=== PATIENT | female | born 1950 | race Hispanic/Latino ===

== ENCOUNTER 2017-08-30 19:10 | Inpatient (IN) | payer OTHER ==
[2017-08-30 19:11] VITALS: BMI 34.2
[2017-08-30] MEDS ORDERED: Albuterol-Ipratrop 3 mg / 0.5 (3 ml) UD ONE ×3 (19:17→22:39)
[2017-08-30] MEDS ORDERED: Magnesium Sulfate 1 gm in D5W 2 GM/200 ML BAG IVPB ONE (19:17)
[2017-08-30] MEDS ORDERED: Magnesium Sulfate 1 gm in D5W 1 GM/100 ML BAG IVPB ONE ×2 (19:27→20:00)
[2017-08-30 19:45] LABS: BASO % 0.4 % (0.0-2.0); EOS # 0.2 K/uL (0.0-0.7); EOS % 1.8 % (0.0-4.0); HEMATOCRIT 30.1 % (34.0-47.0); LYMPH # 1.9 K/uL (1.0-4.3); LYMPH % 17.2 % (20.0-40.0); MEAN CELL VOLUME 62.5 fL (81.0-99.0); MEAN CORPUSCULAR HGB CONC 30.5 g/dL (33.0-37.0); MEAN PLATELET VOLUME 10.8 fL (7.2-11.7); MONO # 0.9 K/uL (0.0-0.8); MONO % 8.1 % (0.0-10.0); RED CELL DISTRIBUTION WIDTH 16.8 % (11.5-14.5); WHITE BLOOD COUNT 11.3 K/uL (4.8-10.8)
[2017-08-30 19:56] LABS: ALKALINE PHOSPHATASE 56 U/L (38-126); ALT/SGPT 18 U/L (9-52); AST/SGOT 13 U/L (14-36); BILIRUBIN,TOTAL 0.3 mg/dL (0.2-1.3); BLOOD UREA NITROGEN 30 mg/dL (7-17); CALCIUM 8.5 mg/dl (8.6-10.4); CARBON DIOXIDE 31 mmol/L (22-30); CHLORIDE 92 mmol/L (98-107); GFR AFRICAN-AMERICAN 60; GLUCOSE,RANDOM 144 mg/dL (65-105); POTASSIUM 4.3 mmol/L (3.6-5.2); SODIUM 131 mmol/L (132-148); TOTAL PROTEIN 5.9 g/dL (6.3-8.3)
[2017-08-30 20:23] LABS: ALB/GLOB RATIO 1.8 (1.0-2.1)
[2017-08-30] MEDS: Albuterol-Ipratrop 3 mg / 0.5 (3 ml) UD IH SCH (21:08)
[2017-08-30 21:28] LABS: ABG ALLEN TEST POS; ARTERIAL BLOOD HGB O2 SAT 96.3 % (95.0-98.0); CARBOXYHEMOGLOBIN 1.5 % (0.5-1.5); DRAW SITE RR; HHB 0.6 % (0.0-5.0); METHEMOGLOBIN 1.6 % (0.0-3.0)
[2017-08-30] MEDS ORDERED: Sodium Chloride 0.9% 500 ML IV ONE (22:20)
--- NOTE | 2017-08-30 22:25 | C.PDOC ---
Time Seen by Provider: 08/30/17 19:24 Chief Complaint (Nursing): Respiratory Distress History Per: Patient, EMS, Family Onset/Duration Of Symptoms: Days Current Symptoms Are (Timing): Worse Current Respiratory Medications: See Home Med List Severity: Severe Reports Recently: Treated By A Physician Additional History Per: Prior Records Past Medical History Reviewed: Historical Data, Nursing Documentation, Vital Signs Vital Signs: Last Vital Signs Temp Pulse 104 H 08/30/17 19:18 Resp 24 08/30/17 19:56 BP 150/94 H 08/30/17 19:18 Pulse Ox 100 08/30/17 19:56 - Medical History PMH: Anxiety, COPD, HTN Family History: States: Unknown Family Hx - Social History Hx Tobacco Use: No Hx Alcohol Use: No Hx Substance Use: No - Immunization History Hx Tetanus Toxoid Vaccination: Yes Hx Influenza Vaccination: Yes Hx Pneumococcal Vaccination: Yes Review Of Systems Except As Marked, All Systems Reviewed And Found Negative. Constitutional: Negative for: Fever Cardiovascular: Negative for: Chest Pain Respiratory: Positive for: Shortness of Breath. Negative for: Hemoptysis Gastrointestinal: Negative for: Vomiting, Abdominal Pain Musculoskeletal: Negative for: Neck Pain Skin: Negative for: Rash Neurological: Negative for: Weakness, Numbness Physical Exam - Physical Exam Appears: In Acute Distress Skin: Normal Color, Warm, Dry Head: Atraumatic, Normacephalic Eye(s): bilateral: PERRL, EOMI Neck: Normal ROM, Supple Cardiovascular: Rhythm Regular Respiratory: Decreased Breath Sounds, Accessory Muscle Use Gastrointestinal/Abdominal: Soft, No Tenderness Back: No CVA Tenderness Extremity: Normal ROM, No Calf Tenderness Neurological/Psych: Oriented x3, Normal Motor, Normal Sensation ED Course And Treatment - Laboratory Results Result Diagrams: 08/30/17 19:41 08/30/17 19:41 ECG: Interpreted By Me, Viewed By Me ECG Rhythm: Sinus Rhythm, Nonspecific Changes Rate From EC - Radiology CXR: Interpreted by Me, Viewed By Me CXR Interpretation: Yes: No Acute Disease Progress - Interventions Interventions:: Observation, Intravenous fluid, Oxygen - Medications Administered Inhaled nebulized: Anticholinergic, Beta-2 agonist Intravenous: Corticosteroid, Other (Mg) - Data Reviewed Data Reviewed: Lab, Diagnostic imaging, EKG, Old records - Patient Status Patient status: Partially improved - Critical Care Citical Care: Excluding Proc Time Critical Care Time: 45 minutes - Continuity of Care Discussed patient case with:: Patient, Family-HIPPA compliant, ED Nurse, Covering for PMD - Patient Plan Patient Plan: Admission Disposition Discussed With : Josemanuel Spence Comment: He accepted pt on hospitalist service. Doctor Will See Patient In The: Hospital Counseled Patient/Family Regarding: Studies Performed, Diagnosis - Disposition Disposition: HOSPITALIZED Disposition Time: 22:26 Condition: FAIR - Clinical Impression Clinical Impression: Status asthmaticus with COPD (chronic obstructive pulmonary disease)
[2017-08-30] MEDS ORDERED: Albuterol-Ipratrop 3 mg / 0.5 (3 ml) UD IH STA (22:28)
[2017-08-30] MEDS ORDERED: MethylPREDNISolone 40 mg Vial IV SCH (23:45)
--- NOTE | 2017-08-31 00:21 | CP.PCM.HP ---
<Armando Rob - Last Filed: 08/31/17 01:00> History of Present Illness - History of Present Illness History of Present Illness: Medicine H/P CC: SOB HPI: Patient is a 67F with a PMH of COPD on home O2 (2L) who comes to the ED after several months of worsening SOB. See Dr. Metzger as outpatient. She thought her condition would get better on its own so she put of coming to the hospital. She is compliant with her medications. Lives with several pets probably contributing to her presentation. Patient thinks her medications need to be changed. Denies any chest pain, fevers, chills. During thanksgiving went to [facility] and received antibiotics and prednisone that made her feel better for a short while. Called her primary about a month ago and he gave her antibiotics and a Medrol dose pack. Her SOB continued to worsen. No other complaints at this time. PMD: Yassine PMH: Anxiety, COPD home O2 2L PSH: Partial hysterectomy FH: unremarkable SH: Former smoker, stopped after she was intubated for ARDS years ago, Denies alcohol use, No drugs Meds: See MAR All: None Present on Admission - Present on Admission Any Indicators Present on Admission: No Review of Systems - Review of Systems Review of Systems: Per HPI Past Patient History - Infectious Disease Hx of Infectious Diseases: None - Past Medical History & Family History Past Medical History?: Yes - Past Social History Smoking Status: Never Smoked - CARDIAC Hx Hypertension: Yes - PULMONARY Hx Chronic Obstructive Pulmonary Disease (COPD): Yes - NEUROLOGICAL Hx Neurological Disorder: No - HEENT Hx HEENT Problems: No - RENAL Hx Chronic Kidney Disease: No - ENDOCRINE/METABOLIC Hx Endocrine Disorders: No - HEMATOLOGICAL/ONCOLOGICAL Hx Blood Disorders: No - INTEGUMENTARY Hx Dermatological Problems: No - MUSCULOSKELETAL/RHEUMATOLOGICAL Hx Musculoskeletal Disorders: No Hx Falls: Yes - GASTROINTESTINAL Hx Gastrointestinal Disorders: No - GENITOURINARY/GYNECOLOGICAL Hx Genitourinary Disorders: No - PSYCHIATRIC Hx Anxiety: Yes Hx Substance Use: No - SURGICAL HISTORY Hx Hysterectomy: Yes Other/Comment: Ovarian tumor nremoval - ANESTHESIA Hx Anesthesia: Yes Hx Anesthesia Reactions: No Hx Malignant Hyperthermia: No Meds Allergies/Adverse Reactions: Allergies Allergy/AdvReac Type Severity Reaction Status Date / Time No Known Allergies Allergy Verified 08/30/17 19:23 Physical Exam - Constitutional Appears: Well, Non-toxic, No Acute Distress - Head Exam Head Exam: ATRAUMATIC, NORMAL INSPECTION, NORMOCEPHALIC - Eye Exam Eye Exam: EOMI Pupil Exam: NORMAL ACCOMODATION - ENT Exam ENT Exam: Mucous Membranes Moist - Respiratory Exam Respiratory Exam: Rhonchi (LLL). absent: Decreased Breath Sounds, Rales, Wheezes, Respiratory Distress, Stridor Additional comments: crackles in RLL - Cardiovascular Exam Cardiovascular Exam: REGULAR RHYTHM Additional comments: distant heart sounds - GI/Abdominal Exam GI & Abdominal Exam: Normal Bowel Sounds, Soft. absent: Distended, Tenderness - Extremities Exam Extremities exam: Negative for: joint swelling, tenderness - Neurological Exam Neurological exam: Alert, Oriented x3 - Psychiatric Exam Psychiatric exam: Normal Affect, Normal Mood - Skin Skin Exam: Dry, Intact, Normal Color, Warm Results - Vital Signs Recent Vital Signs: Last Vital Signs Temp 98.3 F 08/30/17 23:00 Pulse 92 H 08/30/17 23:00 Resp 22 08/30/17 23:00 BP 120/57 L 08/30/17 23:00 Pulse Ox 99 08/30/17 23:00 - Labs Result Diagrams: 08/30/17 19:41 08/30/17 19:41 Labs: Laboratory Results - last 24 hr 08/30/17 08/30/17 08/30/17 19:41 19:41 21:25 WBC 11.3 H RBC 4.82 Hgb 9.2 L Hct 30.1 L MCV 62.5 L MCH 19.0 L MCHC 30.5 L RDW 16.8 H Plt Count 146 MPV 10.8 Neut % (Auto) 72.5 Lymph % (Auto) 17.2 L [place] % (Auto) 8.1 Eos % (Auto) 1.8 Baso % (Auto) 0.4 Neut # 8.2 H Lymph # 1.9 [place] # 0.9 H Eos # 0.2 Baso # 0.0 Differential Comment Puncture Site Rr pCO2 47 H pO2 137 H HCO3 27.4 ABG pH 7.39 ABG Total CO2 29.9 H ABG O2 Saturation 99.4 H ABG Base Excess 3.1 H ABG Hemoglobin 8.7 L ABG Carboxyhemoglobin 1.5 POC ABG HHb (Measured) 0.6 ABG Methemoglobin 1.6 Ralph Test Pos A-a O2 Difference 61.0 Respiratory Index 0.4 Hgb O2 Saturation 96.3 Liter Flow 4.0 FiO2 36.0 Sodium 131 L Potassium 4.3 Chloride 92 L Carbon Dioxide 31 H Anion Gap 12 BUN 30 H Creatinine 1.1 Est GFR ( Amer) 60 Est GFR (Non-Af Amer) 49 Random Glucose 144 H Calcium 8.5 L Total Bilirubin 0.3 AST 13 L ALT 18 Alkaline Phosphatase 56 Troponin I < 0.0120 NT-Pro-B Natriuret Pep 126 Total Protein 5.9 L Albumin 3.8 Globulin 2.1 L Albumin/Globulin Ratio 1.8 Assessment & Plan (1) COPD exacerbation Assessment and Plan: Pulm ([place]) 2L O2 NC BiPAP tonight Meds: * Ventolin Q6 PRN * Duonebs Q6 * Advair 250/50 Q12 * Solumedrol 40 IV Q12 Status: Acute Priority: High (2) Anxiety Assessment and Plan: xanax 0.5 once Status: Acute Priority: High <Josemanuel Spence - Last Filed: 08/31/17 06:30> Results - Vital Signs Recent Vital Signs: Last Vital Signs Temp 97.4 F L 08/31/17 00:08 Pulse 89 08/31/17 01:33 Resp 20 08/31/17 00:08 BP 131/75 08/31/17 00:08 Pulse Ox 99 08/31/17 02:26 - Labs Result Diagrams: 08/30/17 19:41 08/30/17 19:41 Labs: Laboratory Results - last 24 hr 08/30/17 08/30/17 08/30/17 19:41 19:41 21:25 WBC 11.3 H RBC 4.82 Hgb 9.2 L Hct 30.1 L MCV 62.5 L MCH 19.0 L MCHC 30.5 L RDW 16.8 H Plt Count 146 MPV 10.8 Neut % (Auto) 72.5 Lymph % (Auto) 17.2 L [place] % (Auto) 8.1 Eos % (Auto) 1.8 Baso % (Auto) 0.4 Neut # 8.2 H Lymph # 1.9 [place] # 0.9 H Eos # 0.2 Baso # 0.0 Differential Comment Puncture Site Rr pCO2 47 H pO2 137 H HCO3 27.4 ABG pH 7.39 ABG Total CO2 29.9 H ABG O2 Saturation 99.4 H ABG Base Excess 3.1 H ABG Hemoglobin 8.7 L ABG Carboxyhemoglobin 1.5 POC ABG HHb (Measured) 0.6 ABG Methemoglobin 1.6 Ralph Test Pos A-a O2 Difference 61.0 Respiratory Index 0.4 Hgb O2 Saturation 96.3 Liter Flow 4.0 FiO2 36.0 Sodium 131 L Potassium 4.3 Chloride 92 L Carbon Dioxide 31 H Anion Gap 12 BUN 30 H Creatinine 1.1 Est GFR ( Amer) 60 Est GFR (Non-Af Amer) 49 Random Glucose 144 H Calcium 8.5 L Total Bilirubin 0.3 AST 13 L ALT 18 Alkaline Phosphatase 56 Troponin I < 0.0120 NT-Pro-B Natriuret Pep 126 Total Protein 5.9 L Albumin 3.8 Globulin 2.1 L Albumin/Globulin Ratio 1.8 Assessment & Plan - Date & Time Date: 08/31/17 (I have seen and examined the patient. I agree with the findings and plan of care as documented by Dr. Rob. Patient with COPD exacerbation. Give nebs, ventolin, solumedrol, and start advair. BIPAP tonight. Continue home meds for history of anxiety. Monitor for acute changes.) Time: 06:29 Attending/Attestation - Attestation I have personally seen and examined this patient.: Yes I have fully participated in the care of the patient.: Yes I have reviewed all pertinent clinical information: Yes
[2017-08-31] MEDS: Sodium Chloride 0.9% 1,000 ML IV SCH ×3 (01:15→21:47)
[2017-08-31] MEDS: Albuterol HFA 90 mcg/actuation (8 g) INH PRN ×2 (01:26→11:41)
[2017-08-31] MEDS: Albuterol-Ipratrop 3 mg / 0.5 (3 ml) UD INH SCH ×4 (01:50→19:15)
[2017-08-31] MEDS: MethylPREDNISolone 40 mg Vial IV SCH ×3 (08:27→17:29)
[2017-08-31] MEDS: Fluticasone-Salmeterol 250-50mcg Diskus INH SCH ×2 (08:33→19:14)
[2017-08-31] MEDS: Enoxaparin 40 mg Syringe SC SCH (09:41)
--- NOTE | 2017-08-31 10:50 | RAD ---
HISTORY: SOB COMPARISON: Chest x-ray performed 12/17/13 TECHNIQUE: Chest, one view. FINDINGS: Examination limited by habitus. LUNGS: Right greater than left lower lobe patchy opacities worrisome for pneumonia. Please note that chest x-ray has limited sensitivity for the detection of pulmonary masses. PLEURA: No significant pleural effusion identified. No definite pneumothorax . CARDIOVASCULAR: Ectatic aorta. Borderline cardiomegaly. OSSEOUS STRUCTURES: Degenerative changes. VISUALIZED UPPER ABDOMEN: Unremarkable. OTHER FINDINGS: None. IMPRESSION: Right greater than left lower lobe patchy opacities worrisome for pneumonia. Borderline cardiomegaly. Ectatic aorta. Study marked for PA review.
[2017-08-31] MEDS ORDERED: MethylPREDNISolone 40 mg Vial IV SCH (11:00)
[2017-08-31] MEDS: hydroCHLOROthiazide-Triamterene 25 mg-37.5 mg Cap UD PO SCH (11:37)
[2017-08-31 13:16] LABS: LEGIONELLA AG URINE NEGATIVE (NEGATIVE)
[2017-08-31 13:31] LABS: H INFLUENZAE B NEGATIVE (NEGATIVE); N MENINGITIS ACY/W135 NEGATIVE (NEGATIVE); N MENINGITIS B/ECOLI K1 NEGATIVE (NEGATIVE)
--- NOTE | 2017-08-31 13:43 | CP.PCM.PN ---
<Elsa Messina - Last Filed: 08/31/17 15:31> Subjective - Date & Time of Evaluation Date of Evaluation: 08/31/17 Time of Evaluation: 07:50 - Subjective Subjective: Medicine Progress Note: Hospitalist Service Patient seen and examined at bedside. Patient was on bipap overnight. States that she is still short of breath. Able to talk in complete sentences. Patient also states that she is anxious about getting up to use the commode because of her breathing. Reports that breathing has been progressively getting worse over the past few months to the point now where she cant move around at home without feeling short of breath. She uses home O2, proair, nebulizer, spiriva and flovent at home. Currently denies fevers, chills, headaches, dizziness, cp, palpitations, abdominal pain, urinary symptoms, changes in bowel habits. Objective - Vital Signs/Intake and Output Vital Signs (last 24 hours): Temp Pulse Resp BP Pulse Ox 98.5 F 76 20 118/80 96 08/31/17 08:13 08/31/17 08:13 08/31/17 08:13 08/31/17 08:13 08/31/17 08:13 Intake and Output: 08/31/17 08/31/17 06:59 18:59 Intake Total 750 Balance 750 - Medications Medications: Current Medications Albuterol (Ventolin Hfa 90 Mcg/Actuation (8 G)) 1 puff INH RQ6 PRN PRN Reason: Shortness of Breath Last Admin: 08/31/17 11:41 Dose: 1 puff Albuterol/Ipratropium (Duoneb 3 Mg/0.5 Mg (3 Ml) Ud) 3 ml INH RQ6 KASHMIR Last Admin: 08/31/17 13:34 Dose: 3 ml Enoxaparin Sodium (Lovenox) 40 mg SC DAILY [facility] Last Admin: 08/31/17 09:41 Dose: Not Given Sodium Chloride (Sodium Chloride 0.9%) 1,000 mls @ 80 mls/hr IV .[id number] [facility] Last Admin: 08/31/17 01:15 Dose: 80 mls/hr Azithromycin 500 mg/ Dextrose 250 mls @ 166.667 mls/hr IVPB Q24H KASHMIR Last Admin: 08/31/17 12:30 Dose: 166.667 mls/hr Ceftriaxone Sodium 1 gm/ (Sodium Chloride) 100 mls @ 200 mls/hr IVPB Q12H KASHMIR Methylprednisolone (Solu-Medrol) 40 mg IV Q8H KASHMIR Fluticasone/Salmeterol (Advair Diskus 250/50) 1 puff INH RQ12 [facility] Last Admin: 08/31/17 08:33 Dose: Not Given Triamterene/HCTZ (Dyazide 25 Mg-37.5 Mg) 1 cap PO DAILY [facility] Last Admin: 08/31/17 11:37 Dose: 1 cap - Labs Labs: 08/30/17 19:41 08/30/17 19:41 - Constitutional Appears: Non-toxic, No Acute Distress, Older Than Stated Age - Head Exam Head Exam: ATRAUMATIC, NORMAL INSPECTION - Eye Exam Eye Exam: EOMI, Normal appearance Pupil Exam: NORMAL ACCOMODATION - ENT Exam ENT Exam: Mucous Membranes Moist - Neck Exam Neck Exam: Full ROM - Respiratory Exam Respiratory Exam: Decreased Breath Sounds, Rhonchi (Lower lung gonsalez bilaterally). absent: Accessory Muscle Use, Chest Wall Tenderness, Rales, Stridor - Cardiovascular Exam Cardiovascular Exam: REGULAR RHYTHM, +S1, +S2. absent: Murmur - GI/Abdominal Exam GI & Abdominal Exam: Soft, Normal Bowel Sounds. absent: Guarding, Rigid, Tenderness - Extremities Exam Extremities Exam: Normal Capillary Refill. absent: Calf Tenderness, Joint Swelling Additional comments: +1 edema bilaterally - Neurological Exam Neurological Exam: Alert, Awake, CN II-XII Intact, Oriented x3 - Psychiatric Exam Psychiatric exam: Normal Affect, Normal Mood - Skin Skin Exam: Dry, Normal Color, Warm Assessment and Plan - Assessment and Plan (Free Text) Assessment: 1. Acute on Chronic COPD Exacerbation * Patient reports still short of breath * Will upgrade patient to telemetry for closer monitoring * ABG from admission reviewed * Duonebs 3ml INH Q6H KASHMIR * Albuterol prn * Advair 250/50 Q12H * Solumedrol 40mg Q8H IVP * Echo ordered to assess heart function * Supplemental O2 as needed * Bipap QHS * F/U D Dimer * Pulmonary on consult, Dr Delgadillo, help appreciated * Physical Therapy, Occupational Therapy ordered 2. Community Acquired Pneumonia * WBC 11.3 on admission, CRP > 15 * CXR: Right greater than left lower lobe patchy opacities worrisome for pneumonia, borderline cardiomegaly, ectatic aorta * Antibiotics: Azithromycin (08/31/17) and Rocephin (08/31/17) * F/U mycoplasma, Urine legionella ag, urine strep ag * F/U blood cx, urine cx, sputum cx, procalcitonin 3. History of Hypertension * Will continue Triamterene/HCTZ 25/37.5mg daily * Continue to monitor 4. Anemia * Hgb 9.2 on admission * Baseline Hgb not known * F/U anemia workup * F/U stool occult blood * Continue to monitor 5. History of Anxiety * Patient on Xanax 0.5mg at home * Will continue to monitor GI/DVT ppx * Protonix 40mg PO daily * Lovenox 40mg SC <Ginny Esposito V - Last Filed: 09/01/17 00:53> Objective - Vital Signs/Intake and Output Vital Signs (last 24 hours): Temp Pulse Resp BP Pulse Ox 98 F 99 H 20 130/79 100 08/31/17 20:16 08/31/17 20:16 08/31/17 20:16 08/31/17 20:16 08/31/17 20:16 Intake and Output: 08/31/17 09/01/17 18:59 06:59 Intake Total 1810 Output Total 2 Balance 1808 - Medications Medications: Current Medications Albuterol (Ventolin Hfa 90 Mcg/Actuation (8 G)) 1 puff INH RQ6 PRN PRN Reason: Shortness of Breath Last Admin: 08/31/17 11:41 Dose: 1 puff Albuterol/Ipratropium (Duoneb 3 Mg/0.5 Mg (3 Ml) Ud) 3 ml INH RQ6 KASHMIR Last Admin: 08/31/17 19:15 Dose: 3 ml Alprazolam (Xanax) 0.5 mg PO HS PRN PRN Reason: Anxiety Last Admin: 08/31/17 23:08 Dose: 0.5 mg Enoxaparin Sodium (Lovenox) 40 mg SC DAILY [facility] Last Admin: 08/31/17 09:41 Dose: Not Given Sodium Chloride (Sodium Chloride 0.9%) 1,000 mls @ 80 mls/hr IV .[id number] [facility] Last Admin: 08/31/17 21:47 Dose: 80 mls/hr Azithromycin 500 mg/ Dextrose 250 mls @ 166.667 mls/hr IVPB Q24H [facility] Last Admin: 08/31/17 12:30 Dose: 166.667 mls/hr Ceftriaxone Sodium 1 gm/ (Sodium Chloride) 100 mls @ 200 mls/hr IVPB Q12H [facility] Last Admin: 08/31/17 17:30 Dose: 200 mls/hr Methylprednisolone (Solu-Medrol) 40 mg IV Q8H [facility] Last Admin: 08/31/17 17:29 Dose: 40 mg Pantoprazole Sodium (Protonix Ec Tab) 40 mg PO DAILY [facility] Fluticasone/Salmeterol (Advair Diskus 250/50) 1 puff INH RQ12 [facility] Last Admin: 08/31/17 19:14 Dose: Not Given Triamterene/HCTZ (Dyazide 25 Mg-37.5 Mg) 1 cap PO DAILY [facility] Last Admin: 08/31/17 11:37 Dose: 1 cap - Labs Labs: 08/31/17 17:26 08/31/17 17:26 Attending/Attestation - Attestation I have personally seen and examined this patient.: Yes I have fully participated in the care of the patient.: Yes I have reviewed all pertinent clinical information, including history, physical exam and plan: Yes Notes (Text): This is late computer entry for 08/31/17. Patient seen, examined, and case discussed with day-time resident. Patient seen on 3rd floor this morning at 10:45AM with pulmonary consult at bedside. Patient with severe COPD, requiring home oxygen 2 Liters, Duoneb nebulizer, Sprivia. Patient reports difficulty with Advair HFA and Albuterol HFA, reports having difficult time getting adequate breathe. Patient reports she feels anxious, given dose of Xanax and discussed with her nurse. Patient transferred to telemetry for further monitoring in light of COPD exacerbation. Will c/w Solumedrol 40mg IV Q8H, start Advair 250/50 1 puff q12H, and if patient does not tolerate Advair, will consider starting pulmicort nebules per pulm recommendation. Patient completed echocardiogram this morning Antibiotics switched to cover for community acquired pneumonia given infiltrates on chest xray. Blood work ordered for today. Patient has bandemia. procalcitonin is low. Blood cultures were collected prior on admission and today. Will monitor. Assessment/Plan 1. Acute on Chronic COPD Exacerbation * Patient reports still short of breath * Will upgrade patient to telemetry for closer monitoring * ABG from admission reviewed-->CO2 retention * Duonebs 3ml INH Q6H KASHMIR * Albuterol prn * Advair 250/50 1 puff inhaled Q12H * Solumedrol 40mg IVP Q8H * Echo ordered to assess heart function * Supplemental O2 as needed * Bipap QHS * D Dimer: negative * Pulmonary on consult, Dr Delgadillo, help appreciated * Physical Therapy, Occupational Therapy ordered 2. Community Acquired Pneumonia * WBC 11.3 on admission, CRP > 15 * CXR: Right greater than left lower lobe patchy opacities worrisome for pneumonia, borderline cardiomegaly, ectatic aorta * Antibiotics: Azithromycin (08/31/17) and Rocephin (08/31/17) * F/U mycoplasma, Urine legionella ag, urine strep ag * F/U blood cx, urine cx, sputum cx, procalcitonin 3. History of Hypertension * Will continue Triamterene/HCTZ 25/37.5mg daily * Continue to monitor 4. Anemia * Hgb 9.2 on admission * Baseline Hgb not known * F/U anemia workup * F/U stool occult blood * Continue to monitor 5. History of Anxiety * Patient on Xanax 0.5mg QHS PRN at home * Will continue to monitor 6. GI/DVT ppx * Protonix 40mg PO daily * Lovenox 40mg SC HS * Physical therapy eval * Occupational therapy eval
[2017-08-31 13:44] LABS: PROCALCITONIN SERUM < 0.05 NG/ML (0.19-0.49)
[2017-08-31 17:37] LABS: HEMATOCRIT 27.9 % (34.0-47.0); LYMPH # 0.6 K/uL (1.0-4.3); LYMPH % 3.8 % (20.0-40.0); MEAN CELL VOLUME 62.3 fL (81.0-99.0); MEAN CORPUSCULAR HEMOGLOBIN 19.4 pg (27.0-31.0); MEAN CORPUSCULAR HGB CONC 31.2 g/dL (33.0-37.0); MEAN PLATELET VOLUME 11.1 fL (7.2-11.7); MONO # 0.6 K/uL (0.0-0.8); MONO % 3.8 % (0.0-10.0); PLATELET COUNT 145 K/uL (130-400); RED CELL DISTRIBUTION WIDTH 16.3 % (11.5-14.5)
[2017-08-31 17:47] LABS: IRON 67 ug/dL (37-170)
[2017-08-31 18:02] LABS: ALB/GLOB RATIO 1.8 (1.0-2.1); BILIRUBIN,TOTAL 0.2 mg/dL (0.2-1.3); CALCIUM 8.8 mg/dl (8.6-10.4); MAGNESIUM 1.8 mg/dL (1.6-2.3); PHOSPHOROUS 3.4 mg/dL (2.5-4.5); POTASSIUM 4.7 mmol/L (3.6-5.2); TOTAL PROTEIN 5.8 g/dL (6.3-8.3)
[2017-08-31 19:20] LABS: TOTAL CELLS COUNTED 100
[2017-08-31 19:21] LABS: NEUTROPHIL 81 % (50-75)
[2017-08-31 19:22] LABS: LARGE PLATELETS PRESENT
[2017-08-31 20:26] LABS: FOLATE 11.7 ng/mL
--- NOTE | 2017-08-31 23:16 | CARD ---
APPROVED REPORT EKG Measurement Heart [id number] <Conclusion> Normal sinus rhythm Low voltage QRS Cannot rule out Anterior infarct, age undetermined Abnormal ECG
[2017-09-01] MEDS: MethylPREDNISolone 40 mg Vial IV SCH ×3 (01:19→17:41)
[2017-09-01 02:25] LABS: ALB/GLOB RATIO 1.1 (1.0-2.1); BILIRUBIN,TOTAL 0.3 mg/dL (0.2-1.3); CALCIUM 8.7 mg/dl (8.6-10.4); MAGNESIUM 1.9 mg/dL (1.6-2.3); PHOSPHOROUS 3.7 mg/dL (2.5-4.5); POTASSIUM 4.9 mmol/L (3.6-5.2)
[2017-09-01] MEDS: Albuterol-Ipratrop 3 mg / 0.5 (3 ml) UD INH SCH ×4 (02:29→20:09)
[2017-09-01] MEDS: Fluticasone-Salmeterol 250-50mcg Diskus INH SCH (07:20)
--- NOTE | 2017-09-01 07:21 | CON ---
DATE: HISTORY OF PRESENT ILLNESS: Ms. Arteaga is a 67-year-old female, admitted to the hospital with chief complaint of shortness of breath, wheezes, coughing. Patient came to the ER, advised admission. Patient uses Spiriva, DuoNeb, Flovent, Dyazide. PHYSICAL EXAMINATION: GENERAL: The patient is awake, alert, oriented. VITAL SIGNS: Temperature 98, pulse 90. HEENT: Within normal limits. NECK: Supple. CHEST: Symmetrical. Decreased air entry. HEART: Regular. ABDOMEN: Soft. EXTREMITIES: No edema. IMPRESSION AND PLAN: Patient suffers on admission from chronic obstructive pulmonary disease. Rule out pneumonia. The patient to get bedrest, bronchodilators, antibiotics, IV steroid. Add Advair 250/50 twice a day. Rosalind Delgadillo MD
[2017-09-01 07:36] LABS: RBC URINE < 1 /hpf (0-3); URINE BACTERIA OCC (<OCC); URINE BILIRUBIN NEGATIVE (NEGATIVE); URINE BLOOD NEGATIVE (NEGATIVE); URINE COLOR Straw (YELLOW); URINE GLUCOSE (UA) NORMAL (Normal); URINE KETONE NEGATIVE (NEGATIVE); URINE LEUKOCYTE ESTERASE NEG Leu/uL (Negative); URINE PROTEIN NEGATIVE (NEGATIVE); URINE UROBILINOGEN NORMAL mg/dL (0.2-1.0); WBC URINE 1 /hpf (0-5)
--- NOTE | 2017-09-01 07:48 | CP.PCM.PN ---
<Elsa Messina - Last Filed: 09/01/17 17:08> Subjective - Date & Time of Evaluation Date of Evaluation: 09/01/17 Time of Evaluation: 07:45 - Subjective Subjective: Medicine Progress Note: Hospitalist Service Patient seen and examined at bedside. Per nursing no acute events overnight. Patient with bipap mask on currently. States that breathing is a little better today. Able to speak in complete sentences. Per PT documentation, Patient desaturated yesterday to 89% on 3L NC with moderate shortness of breath. Offers no complaints at this time. Denies headaches, dizziness, cp, palpitations, abdominal pain, urinary symptoms, changes in bowel habits. Objective - Vital Signs/Intake and Output Vital Signs (last 24 hours): Temp Pulse Resp BP Pulse Ox 98.1 F 79 20 118/76 96 08/31/17 23:40 08/31/17 23:40 08/31/17 23:40 08/31/17 23:40 08/31/17 23:40 Intake and Output: 09/01/17 09/01/17 06:59 18:59 Intake Total 420 Output Total 2 Balance 418 - Medications Medications: Current Medications Albuterol (Ventolin Hfa 90 Mcg/Actuation (8 G)) 1 puff INH RQ6 PRN PRN Reason: Shortness of Breath Last Admin: 08/31/17 11:41 Dose: 1 puff Albuterol/Ipratropium (Duoneb 3 Mg/0.5 Mg (3 Ml) Ud) 3 ml INH RQ6 [facility] Last Admin: 09/01/17 07:20 Dose: 3 ml Enoxaparin Sodium (Lovenox) 40 mg SC DAILY [facility] Last Admin: 08/31/17 09:41 Dose: Not Given Azithromycin 500 mg/ Dextrose 250 mls @ 166.667 mls/hr IVPB Q24H [facility] Last Admin: 08/31/17 12:30 Dose: 166.667 mls/hr Ceftriaxone Sodium 1 gm/ (Sodium Chloride) 100 mls @ 200 mls/hr IVPB Q12H [facility] Last Admin: 09/01/17 04:00 Dose: 200 mls/hr Methylprednisolone (Solu-Medrol) 40 mg IV Q8H [facility] Last Admin: 09/01/17 01:19 Dose: 40 mg Pantoprazole Sodium (Protonix Ec Tab) 40 mg PO DAILY [facility] Saccharomyces Boulardii (Florastor) 250 mg PO BID [facility] Fluticasone/Salmeterol (Advair Diskus 250/50) 1 puff INH RQ12 [facility] Last Admin: 09/01/17 07:20 Dose: Not Given Triamterene/HCTZ (Dyazide 25 Mg-37.5 Mg) 1 cap PO DAILY [facility] Last Admin: 08/31/17 11:37 Dose: 1 cap - Labs Labs: 08/31/17 17:26 09/01/17 01:32 - Constitutional Appears: Well, No Acute Distress - Head Exam Head Exam: ATRAUMATIC, NORMAL INSPECTION - Eye Exam Eye Exam: EOMI, Normal appearance - ENT Exam ENT Exam: Mucous Membranes Moist - Neck Exam Neck Exam: Full ROM - Respiratory Exam Respiratory Exam: Decreased Breath Sounds, Wheezes, NORMAL BREATHING PATTERN. absent: Accessory Muscle Use - Cardiovascular Exam Cardiovascular Exam: REGULAR RHYTHM, +S1, +S2 - GI/Abdominal Exam GI & Abdominal Exam: Soft, Normal Bowel Sounds. absent: Guarding, Rigid, Tenderness - Extremities Exam Extremities Exam: Pedal Edema (+1 pitting edema). absent: Calf Tenderness - Neurological Exam Neurological Exam: Alert, Awake, Normal Gait, Oriented x3 - Psychiatric Exam Psychiatric exam: Anxious, Normal Affect - Skin Skin Exam: Normal Color, Warm Assessment and Plan - Assessment and Plan (Free Text) Assessment: 1. Acute on Chronic COPD Exacerbation * Patient reports still short of breath but improving * Continue to monitor on telemetry * Continue Duonebs 3ml INH Q6H [facility] * Albuterol prn * Patient unable to use Advair, will add pulmicort 0.5 INH Q12H * Solumedrol 40mg Q8H IVP * Echo completed, f/u official read * Supplemental O2 as needed * Bipap QHS * Pulmonary on consult, Dr Delgadillo, help appreciated * Physical Therapy, Occupational Therapy ordered 2. Community Acquired Pneumonia * WBC 11.3 on admission, CRP > 15 * CXR: Right greater than left lower lobe patchy opacities worrisome for pneumonia, borderline cardiomegaly, ectatic aorta * Antibiotics: Azithromycin (08/31/17) and Rocephin (08/31/17) * Florastor 250mg BID * Bandemia resolved 11 --> 1 * Repeat CXR ordered * Legionella, strep pneumo, mycoplasma negative * F/U blood cx, urine cx, sputum cx, procalcitonin 3. History of Hypertension * Will continue Triamterene/HCTZ 25/37.5mg daily * Continue to monitor 4. Anemia * Hgb 9.2 on admission, today 8.7 * Anemia panel reviewed * Iron 67 * TIBC 298 * % sat 22 * Ferritin 80.2 * Vitamin B12 410 * Folate 11.7 * Stool occult negative, unknown cause of anemia * Heme/Onc consulted, f/u recommendations * Continue to monitor 5. History of Anxiety * Lexapro 20mg daily * On Xanax 0.5mg daily at home * Will continue to monitor GI/DVT ppx * Protonix 40mg PO daily * Lovenox 40mg [facility] <Ginny Esposito V - Last Filed: 09/03/17 18:25> Objective - Vital Signs/Intake and Output Vital Signs (last 24 hours): Temp Pulse Resp BP Pulse Ox 98 F 91 H 20 155/91 H 98 09/02/17 23:45 09/02/17 23:45 09/02/17 23:45 09/02/17 23:45 09/02/17 23:45 Intake and Output: 09/03/17 09/03/17 06:59 18:59 Intake Total 840 Balance 840 - Labs Labs: 09/02/17 07:09 09/02/17 07:09 Attending/Attestation - Attestation I have personally seen and examined this patient.: Yes I have fully participated in the care of the patient.: Yes I have reviewed all pertinent clinical information, including history, physical exam and plan: Yes Notes (Text): This is late computer entry for 09/01/2017. Patient transferred to telemetry yesterday for further monitoring given acute on chronic severe COPD exacerbation. Patient reports shortness of breath but starting to improve. Patient unable to physically take in adequate breath to rule out both Advair and Spiriva to have effectiveness for patient's breathing and lung quality. Per recommendation bipolar will start budesonide Nebules inhaled about twice a day given the patient uses nebulizer and reports more effective breathing. We'll continue IV steroids. Serology for pneumonia and is negative. We'll continue antibiotics to cover for community acquired pneumonia. Patient is anemic and appears chronic unable to get baseline since PMD is away. We'll consult heme for further recommendations. Assessment/Plan 1. Acute on Chronic Severe COPD Exacerbation * Patient reports still short of breath * Will upgrade patient to telemetry for closer monitoring * ABG from admission reviewed-->CO2 retention * Duonebs 3ml INH Q6H [facility] * Albuterol prn * Advair 250/50 1 puff inhaled Q12H * Solumedrol 40mg IVP Q8H * Echo ordered to assess heart function * Supplemental O2 as needed * Bipap QHS * D Dimer: negative * Pulmonary on consult, Dr Delgadillo, help appreciated * Physical Therapy, Occupational Therapy ordered * pending echocardiogram 2. Community Acquired Pneumonia * WBC 11.4 on admission, CRP > 15 (on IV steroids) * CXR: Right greater than left lower lobe patchy opacities worrisome for pneumonia, borderline cardiomegaly, ectatic aorta * Antibiotics: Azithromycin (08/31/17) and Rocephin (08/31/17) * mycoplasma, Urine legionella ag, urine strep ag: negative * F/U blood cx, urine cx, sputum cx, procalcitonin 3. History of Hypertension * Will continue Triamterene/HCTZ 25/37.5mg daily * Continue to monitor 4. Anemia * Consult: Dr. Tony Garcia (heme-onc) on board * Hgb 8.6 on admission * Baseline Hgb not known * F/U anemia workup * F/U stool occult blood * Continue to monitor 5. History of Anxiety * Patient on Xanax 0.5mg QHS PRN at home * Will continue to monitor 6. GI/DVT ppx * Protonix 40mg PO daily * Lovenox 40mg SC HS * Physical therapy eval * Occupational therapy eval
[2017-09-01 08:01] LABS: BASO % 0.2 % (0.0-2.0); HEMATOCRIT 27.2 % (34.0-47.0); LYMPH # 0.6 K/uL (1.0-4.3); LYMPH % 4.9 % (20.0-40.0); MEAN CELL VOLUME 62.7 fL (81.0-99.0); MEAN CORPUSCULAR HEMOGLOBIN 19.7 pg (27.0-31.0); MEAN CORPUSCULAR HGB CONC 31.5 g/dL (33.0-37.0); MEAN PLATELET VOLUME 10.6 fL (7.2-11.7); MONO # 0.3 K/uL (0.0-0.8); MONO % 2.8 % (0.0-10.0); PLATELET COUNT 135 K/uL (130-400); RED CELL DISTRIBUTION WIDTH 16.7 % (11.5-14.5); WHITE BLOOD COUNT 11.4 K/uL (4.8-10.8)
[2017-09-01 09:17] LABS: NEUTROPHIL 87 % (50-75); TOTAL CELLS COUNTED 100
[2017-09-01 09:19] LABS: LARGE PLATELETS PRESENT
--- NOTE | 2017-09-01 10:35 | CARD ---
APPROVED REPORT EXAM: Two-dimensional and M-mode echocardiogram with Doppler and color Doppler. Other Information Quality : GoodRhythm : INDICATION Dyspnea COPD RIGHT HEART FAILURE 2D DIMENSIONS IVSd0.7 (0.7-1.1cm)LVDd3.9 (3.9-5.9cm) PWd0.8 (0.7-1.1cm)LVDs2.6 (2.5-4.0cm) FS (%) 32.9 %LVEF (%)62.1 (>50%) M-Mode DIMENSIONS Left Atrium (MM)4.00 (2.5-4.0cm)Aortic Root3.06 (2.2-3.7cm) Aortic Cusp Exc.2.08 (1.5-2.0cm) Mitral Valve MV E Efbyoqga703.5cm/sMV A Bawzzwgd963.7cm/sE/A ratio1.1 TDI E/Lateral E'0.0E/Medial E'0.0 Tricuspid Valve TR Peak [id number]/sTR Peak [id number] LEFT VENTRICLE The left ventricle is normal size. There is normal left ventricular wall thickness. Left ventricle systolic function is normal. The Ejection Fraction is 60-65%. There is normal LV segmental wall motion. The left ventricular diastolic function is normal. No left ventricle thrombus noted on this study. RIGHT VENTRICLE The right ventricle is normal size. The right ventricular systolic function is normal. ATRIA The left atrium size is normal. The right atrium size is normal. AORTIC VALVE The aortic valve is mildly sclerotic. The aortic valve is probably trileaflet. No aortic regurgitation is present. There is no aortic valvular stenosis. There is no aortic valvular vegetation. MITRAL VALVE Mitral annular calcification is mild to moderate. There is no evidence of mitral valve prolapse. There is no mitral valve stenosis. There is no mitral valve regurgitation noted. TRICUSPID VALVE The tricuspid valve is normal in structure. There is mild to moderate tricuspid regurgitation. Right ventricular systolic pressure is estimated at 40-50 mmHg. There is mild-moderate pulmonary hypertension. There is no tricuspid valve prolapse or vegetation. There is no tricuspid valve stenosis. PULMONIC VALVE The pulmonic valve is not well visualized. There is no pulmonic valvular regurgitation. GREAT VESSELS The aortic root is normal in size. The IVC collapses <50% with inspiration. PERICARDIAL EFFUSION There is no pericardial effusion. There is no pleural effusion. <Conclusion> The left ventricle is normal size. Left ventricle systolic function is normal. The Ejection Fraction is 60-65%. The left ventricular diastolic function is normal. The right ventricle is normal size. The right ventricular systolic function is normal. The left atrium size is normal. The right atrium size is normal. There is mild to moderate tricuspid regurgitation. There is mild-moderate pulmonary hypertension.
[2017-09-01] MEDS: Saccharomyces Boulardi 250 mg Cap PO SCH ×2 (10:39→17:41)
[2017-09-01] MEDS: Enoxaparin 40 mg Syringe SC SCH ×2 (10:39→10:42)
[2017-09-01] MEDS: Pantoprazole 40 mg EC Tab PO SCH (10:40)
[2017-09-01] MEDS: hydroCHLOROthiazide-Triamterene 25 mg-37.5 mg Cap UD PO SCH (10:41)
--- NOTE | 2017-09-01 13:23 | RAD ---
HISTORY: COMPARISON: 08/30/2017 TECHNIQUE: Chest PA and lateral FINDINGS: LINES AND TUBES: None. LUNG AND PLEURA: The lungs are hyperinflated and there is peribronchial thickening with chronic changes in both lungs. There is interval development of multi focal discoid atelectasis in the right lower lobe and left lung base. No focal consolidation. HEART AND MEDIASTINUM: The heart is not enlarged. The hilar and mediastinal contours are within normal limits. SKELETAL STRUCTURES: The bony structures are within normal limits for the patient's age. VISUALIZED UPPER ABDOMEN: Normal. OTHER FINDINGS: None. IMPRESSION: COPD. No lobar pneumonia. Interval development of multifocal discoid atelectasis in the right lower lobe and left lung base.
--- NOTE | 2017-09-01 14:31 | PN ---
DATE: 09/01/2017 SUBJECTIVE: The patient is improving, shortness of breath is less. The patient benefit from Pulmicort nebulizer. supportive care. Rosalind Delgadillo MD
--- NOTE | 2017-09-01 19:10 | CP.PCM.CON ---
History of Present Illness - History of Present Illness History of Present Illness: 67 year old female with a history of COPD on home oxygen, anxiety, admitting with worsening shortness of breath, currently being treated for COPD exacerbation, with anemia. The patient notes to anemia her whole life. She denies abnormal bleeding and bruising. She has not been taking iron supplements. She notes her breathing has improved since coming to the hospital. Past medical history: COPD, anxiety Past surgical history: Hysterectomy Family history: Denies hematologic and oncologic problems Social history: Former tobacco, denies alcohol, and illicit drug use. Allergies: NKA Review of systems: All remaining review of systems including HEENT, cardiovascular, respiratory, gastrointestinal, genitourinary, musculoskeletal, dermatologic, neurologic, and psychiatric are negative unless mentioned in the HPI. Past Patient History - Infectious Disease Hx of Infectious Diseases: None - Past Medical History & Family History Past Medical History?: Yes - Past Social History Smoking Status: Former Smoker - CARDIAC Hx Cardiac Disorders: Yes Hx Hypertension: Yes - PULMONARY Hx Chronic Obstructive Pulmonary Disease (COPD): Yes - NEUROLOGICAL Hx Neurological Disorder: No - HEENT Hx HEENT Problems: No - RENAL Hx Chronic Kidney Disease: No - ENDOCRINE/METABOLIC Hx Endocrine Disorders: No - HEMATOLOGICAL/ONCOLOGICAL Hx Blood Disorders: No - INTEGUMENTARY Hx Dermatological Problems: No - MUSCULOSKELETAL/RHEUMATOLOGICAL Hx Falls: No - GASTROINTESTINAL Hx Gastrointestinal Disorders: No - GENITOURINARY/GYNECOLOGICAL Hx Genitourinary Disorders: No - PSYCHIATRIC Hx Substance Use: No - SURGICAL HISTORY Hx Surgeries: Yes Hx Hysterectomy: Yes Other/Comment: Ovarian tumor removal - ANESTHESIA Hx Anesthesia: Yes Hx Anesthesia Reactions: No Hx Malignant Hyperthermia: No Meds Allergies/Adverse Reactions: Allergies Allergy/AdvReac Type Severity Reaction Status Date / Time No Known Allergies Allergy Verified 08/30/17 19:23 - Medications Medications: Current Medications Albuterol (Ventolin Hfa 90 Mcg/Actuation (8 G)) 1 puff INH RQ6 PRN PRN Reason: Shortness of Breath Last Admin: 08/31/17 11:41 Dose: 1 puff Albuterol/Ipratropium (Duoneb 3 Mg/0.5 Mg (3 Ml) Ud) 3 ml INH RQ6 [facility] Last Admin: 09/01/17 13:32 Dose: 3 ml Budesonide (Pulmicort Respules) 0.5 mg INH RQ12 [facility] Enoxaparin Sodium (Lovenox) 40 mg SC DAILY [facility] Last Admin: 09/01/17 10:42 Dose: Not Given Escitalopram Oxalate (Lexapro) 20 mg PO DAILY [facility] Last Admin: 09/01/17 10:40 Dose: 20 mg Ferric Sodium Gluconate Complex (Ferrlecit) 125 mg IVPB DAILY [facility] Stop: 09/09/17 20:01 Azithromycin 500 mg/ Dextrose 250 mls @ 166.667 mls/hr IVPB Q24H [facility] Last Admin: 09/01/17 10:47 Dose: 166.667 mls/hr Ceftriaxone Sodium 1 gm/ (Sodium Chloride) 100 mls @ 200 mls/hr IVPB Q12H [facility] Last Admin: 09/01/17 17:00 Dose: 200 mls/hr Methylprednisolone (Solu-Medrol) 40 mg IV Q8H [facility] Last Admin: 09/01/17 17:41 Dose: 40 mg Pantoprazole Sodium (Protonix Ec Tab) 40 mg PO DAILY [facility] Last Admin: 09/01/17 10:40 Dose: 40 mg Saccharomyces Boulardii (Florastor) 250 mg PO BID [facility] Last Admin: 09/01/17 17:41 Dose: 250 mg Triamterene/HCTZ (Dyazide 25 Mg-37.5 Mg) 1 cap PO DAILY [facility] Last Admin: 09/01/17 10:41 Dose: 1 cap Physical Exam - Head Exam Head Exam: ATRAUMATIC - Eye Exam Eye Exam: Normal appearance - ENT Exam ENT Exam: Mucous Membranes Dry - Respiratory Exam Respiratory Exam: Decreased Breath Sounds - Cardiovascular Exam Cardiovascular Exam: +S1, +S2 - GI/Abdominal Exam GI & Abdominal Exam: Normal Bowel Sounds - Neurological Exam Neurological exam: Oriented x3 - Psychiatric Exam Psychiatric exam: Normal Affect, Normal Mood - Skin Skin Exam: Warm Results - Vital Signs Recent Vital Signs: Last Vital Signs Temp 97.8 F 09/01/17 16:05 Pulse 76 09/01/17 16:05 Resp 20 09/01/17 16:05 BP 149/94 H 09/01/17 16:05 Pulse Ox 99 09/01/17 16:05 - Labs Result Diagrams: 09/01/17 07:47 09/01/17 01:32 Labs: Laboratory Results - last 24 hr 08/31/17 08/31/17 08/31/17 17:26 17:26 21:29 WBC RBC Hgb Hct MCV MCH MCHC RDW Plt Count MPV Neut % (Auto) Lymph % (Auto) Howard % (Auto) Eos % (Auto) Baso % (Auto) Neut # Lymph # Howard # Eos # Baso # Neutrophils % (Manual) 81 H Band Neutrophils % 11 H* Lymphocytes % (Manual) 4 L Monocytes % (Manual) 4 Platelet Estimate Normal Large Platelets Present Hypochromasia (manual) Slight Poikilocytosis (manual Basophilic Stippling Anisocytosis (manual) Microcytosis (manual) Slight Sodium Potassium Chloride Carbon Dioxide Anion Gap BUN Creatinine Est GFR ( Amer) Est GFR (Non-Af Amer) POC Glucose (mg/dL) 152 H Random Glucose Calcium Phosphorus Magnesium Total Bilirubin AST ALT Alkaline Phosphatase Total Protein Albumin Globulin Albumin/Globulin Ratio Folate 11.7 Urine Color Urine Clarity Urine pH Ur Specific [place] Urine Protein Urine Glucose (UA) Urine Ketones Urine Blood Urine Nitrate Urine Bilirubin Urine Urobilinogen Ur Leukocyte Esterase Urine WBC (Auto) Urine RBC (Auto) Urine Bacteria Stool Occult Blood 08/31/17 09/01/17 09/01/17 22:30 01:32 07:25 WBC RBC Hgb Hct MCV MCH MCHC RDW Plt Count MPV Neut % (Auto) Lymph % (Auto) Howard % (Auto) Eos % (Auto) Baso % (Auto) Neut # Lymph # Howard # Eos # Baso # Neutrophils % (Manual) Band Neutrophils % Lymphocytes % (Manual) Monocytes % (Manual) Platelet Estimate Large Platelets Hypochromasia (manual) Poikilocytosis (manual Basophilic Stippling Anisocytosis (manual) Microcytosis (manual) Sodium 135 Potassium 4.9 Chloride 96 L Carbon Dioxide 31 H Anion Gap 13 BUN 34 H Creatinine 1.1 Est GFR ( Amer) 60 Est GFR (Non-Af Amer) 49 POC Glucose (mg/dL) Random Glucose 169 H Calcium 8.7 Phosphorus 3.7 Magnesium 1.9 Total Bilirubin 0.3 AST 19 ALT 22 Alkaline Phosphatase 53 Total Protein 7.0 Albumin 3.7 Globulin 3.3 Albumin/Globulin Ratio 1.1 Folate Urine Color Straw Urine Clarity Clear Urine pH 5.0 Ur Specific [place] 1.013 Urine Protein Negative Urine Glucose (UA) Normal Urine Ketones Negative Urine Blood Negative Urine Nitrate Negative Urine Bilirubin Negative Urine Urobilinogen Normal Ur Leukocyte Esterase Neg Urine WBC (Auto) 1 Urine RBC (Auto) < 1 Urine Bacteria Occ H Stool Occult Blood Negative 09/01/17 09/01/17 07:47 16:58 WBC 11.4 H RBC 4.34 Hgb 8.6 L Hct 27.2 L MCV 62.7 L MCH 19.7 L MCHC 31.5 L RDW 16.7 H Plt Count 135 MPV 10.6 Neut % (Auto) 92.1 H Lymph % (Auto) 4.9 L Howard % (Auto) 2.8 Eos % (Auto) 0.0 Baso % (Auto) 0.2 Neut # 10.5 H Lymph # 0.6 L Howard # 0.3 Eos # 0.0 Baso # 0.0 Neutrophils % (Manual) 87 H Band Neutrophils % 1 Lymphocytes % (Manual) 10 L Monocytes % (Manual) 2 Platelet Estimate Normal Large Platelets Present Hypochromasia (manual) Slight Poikilocytosis (manual Slight Basophilic Stippling Slight Anisocytosis (manual) Slight Microcytosis (manual) Sodium Potassium Chloride Carbon Dioxide Anion Gap BUN Creatinine Est GFR ( Amer) Est GFR (Non-Af Amer) POC Glucose (mg/dL) 214 H Random Glucose Calcium Phosphorus Magnesium Total Bilirubin AST ALT Alkaline Phosphatase Total Protein Albumin Globulin Albumin/Globulin Ratio Folate Urine Color Urine Clarity Urine pH Ur Specific [place] Urine Protein Urine Glucose (UA) Urine Ketones Urine Blood Urine Nitrate Urine Bilirubin Urine Urobilinogen Ur Leukocyte Esterase Urine WBC (Auto) Urine RBC (Auto) Urine Bacteria Stool Occult Blood Assessment & Plan (1) Anemia Assessment and Plan: borderline iron stores will start IV iron hemoglobin electropheresis in AM to rule out hemoglobinopathy trait Status: Acute (2) Leukocytosis Assessment and Plan: on antibiotics and steroids Thank you for this interesting consult. Status: Acute
[2017-09-01] MEDS ORDERED: Ferric Sodium Gluconat Complex 62.5 mg/5 ml Vial IVPB SCH (20:00)
[2017-09-01] MEDS: Budesonide 0.5 mg/2 ml Inhal Susp UD INH SCH (20:09)
[2017-09-01] MEDS: Albuterol HFA 90 mcg/actuation (8 g) INH PRN (22:32)
[2017-09-02] MEDS: Albuterol-Ipratrop 3 mg / 0.5 (3 ml) UD INH SCH ×4 (01:21→20:20)
[2017-09-02] MEDS: MethylPREDNISolone 40 mg Vial IV SCH ×3 (02:30→21:50)
[2017-09-02 07:35] LABS: BASO % 0.1 % (0.0-2.0); HEMATOCRIT 28.4 % (34.0-47.0); LYMPH # 0.7 K/uL (1.0-4.3); LYMPH % 5.9 % (20.0-40.0); MEAN CELL VOLUME 62.7 fL (81.0-99.0); MEAN CORPUSCULAR HEMOGLOBIN 19.5 pg (27.0-31.0); MEAN CORPUSCULAR HGB CONC 31.1 g/dL (33.0-37.0); MONO # 0.3 K/uL (0.0-0.8); MONO % 2.8 % (0.0-10.0); PLATELET COUNT 169 K/uL (130-400); RED CELL DISTRIBUTION WIDTH 16.5 % (11.5-14.5); WHITE BLOOD COUNT 11.5 K/uL (4.8-10.8)
[2017-09-02] MEDS: Budesonide 0.5 mg/2 ml Inhal Susp UD INH SCH ×2 (08:00→20:20)
[2017-09-02 08:56] LABS: ALB/GLOB RATIO 1.8 (1.0-2.1); BILIRUBIN,TOTAL 0.2 mg/dL (0.2-1.3); CALCIUM 8.6 mg/dl (8.6-10.4); MAGNESIUM 2.1 mg/dL (1.6-2.3); PHOSPHOROUS 3.2 mg/dL (2.5-4.5); POTASSIUM 4.8 mmol/L (3.6-5.2); TOTAL PROTEIN 5.7 g/dL (6.3-8.3)
[2017-09-02 09:16] LABS: NEUTROPHIL 92 % (50-75); TOTAL CELLS COUNTED 100
[2017-09-02] MEDS: hydroCHLOROthiazide-Triamterene 25 mg-37.5 mg Cap UD PO SCH (09:56)
[2017-09-02] MEDS: Pantoprazole 40 mg EC Tab PO SCH (09:56)
[2017-09-02] MEDS: Saccharomyces Boulardi 250 mg Cap PO SCH (09:56)
[2017-09-02] MEDS: Enoxaparin 40 mg Syringe SC SCH (09:57)
[2017-09-02] MEDS: Ferric Sodium Gluconat Complex 125 MG in Sodium Chloride 0.9% 100 ML IVPB SCH (10:48)
[2017-09-02] MEDS ORDERED: MethylPREDNISolone 40 mg Vial IV SCH (11:00)
[2017-09-02] MEDS ORDERED: Azithromycin 500 MG in Sodium Chloride 0.9% 250 ML IVPB SCH (11:30)
--- NOTE | 2017-09-02 12:46 | CP.PCM.PN ---
Subjective - Date & Time of Evaluation Date of Evaluation: 09/02/17 Time of Evaluation: 12:40 - Subjective Subjective: Breathing better Objective - Vital Signs/Intake and Output Vital Signs (last 24 hours): Temp Pulse Resp BP Pulse Ox 97.5 F L 76 18 150/94 H 100 09/02/17 07:10 09/02/17 08:00 09/02/17 07:10 09/02/17 07:10 09/02/17 07:10 Intake and Output: 09/02/17 09/02/17 06:59 18:59 Intake Total 340 Balance 340 - Medications Medications: Current Medications Albuterol (Ventolin Hfa 90 Mcg/Actuation (8 G)) 1 puff INH RQ6 PRN PRN Reason: Shortness of Breath Last Admin: 09/01/17 22:32 Dose: 1 puff Albuterol/Ipratropium (Duoneb 3 Mg/0.5 Mg (3 Ml) Ud) 3 ml INH RQ6 [facility] Last Admin: 09/02/17 08:00 Dose: 3 ml Budesonide (Pulmicort Respules) 0.5 mg INH RQ12 [facility] Last Admin: 09/02/17 08:00 Dose: 0.5 mg Enoxaparin Sodium (Lovenox) 40 mg SC DAILY [facility] Last Admin: 09/02/17 09:57 Dose: Not Given Escitalopram Oxalate (Lexapro) 20 mg PO DAILY [facility] Last Admin: 09/02/17 09:56 Dose: 20 mg Ferric Sodium Gluconate Complex 125 mg/ Sodium Chloride 110 mls @ 110 mls/hr IVPB DAILY [facility] Stop: 09/10/17 10:01 Last Admin: 09/02/17 10:48 Dose: 110 mls/hr Methylprednisolone (Solu-Medrol) 40 mg IV Q12H [facility] Pantoprazole Sodium (Protonix Ec Tab) 40 mg PO DAILY [facility] Last Admin: 09/02/17 09:56 Dose: 40 mg Saccharomyces Boulardii (Florastor) 250 mg PO BID [facility] Last Admin: 09/02/17 09:56 Dose: 250 mg Triamterene/HCTZ (Dyazide 25 Mg-37.5 Mg) 1 cap PO DAILY [facility] Last Admin: 09/02/17 09:56 Dose: 1 cap - Labs Labs: 09/02/17 07:09 09/02/17 07:09 - Head Exam Head Exam: ATRAUMATIC - Eye Exam Eye Exam: Normal appearance - ENT Exam ENT Exam: Mucous Membranes Dry - Respiratory Exam Respiratory Exam: Decreased Breath Sounds - Cardiovascular Exam Cardiovascular Exam: +S1, +S2 - GI/Abdominal Exam GI & Abdominal Exam: Normal Bowel Sounds Assessment and Plan (1) Anemia Assessment & Plan: borderline iron stores; on IV iron hemoglobinopathy w/u sent Status: Acute (2) Leukocytosis Status: Acute
[2017-09-02 13:36] VITALS: RESP 20
[2017-09-02] MEDS ORDERED: Calcium Carbonate 500 mg Chewable Antacid Tab PO ONE (13:43)
[2017-09-02 16:21] VITALS: PULSE 91
--- NOTE | 2017-09-02 16:27 | CP.PCM.PN ---
<Elsa Messina - Last Filed: 09/02/17 16:33> Subjective - Date & Time of Evaluation Date of Evaluation: 09/02/17 Time of Evaluation: 16:25 - Subjective Subjective: Medicine Progress Note: Hospitalist Service Patient seen and examined at bedside. Per nursing no acute events overnight. Patient states that shortness of breath is improving. She is able to transfer from bed to commode with less difficulty. This morning patient had no complaints. Page was recieved later in the afternoon that patient was having chest pressure that she attributed to gas. Denies headaches, dizziness, cp, palpitations, abdominal pain, urinary symptoms, changes in bowel habits. Objective - Vital Signs/Intake and Output Vital Signs (last 24 hours): Temp Pulse Resp BP Pulse Ox 97.7 F 91 H 20 160/78 H 100 09/02/17 16:20 09/02/17 16:20 09/02/17 16:20 09/02/17 16:20 09/02/17 16:20 Intake and Output: 09/02/17 09/02/17 06:59 18:59 Intake Total 340 500 Balance 340 500 - Medications Medications: Current Medications Albuterol (Ventolin Hfa 90 Mcg/Actuation (8 G)) 1 puff INH RQ6 PRN PRN Reason: Shortness of Breath Last Admin: 09/01/17 22:32 Dose: 1 puff Albuterol/Ipratropium (Duoneb 3 Mg/0.5 Mg (3 Ml) Ud) 3 ml INH RQ6 [facility] Last Admin: 09/02/17 14:10 Dose: Not Given Budesonide (Pulmicort Respules) 0.5 mg INH RQ12 [facility] Last Admin: 09/02/17 08:00 Dose: 0.5 mg Enoxaparin Sodium (Lovenox) 40 mg SC DAILY [facility] Last Admin: 09/02/17 09:57 Dose: Not Given Escitalopram Oxalate (Lexapro) 20 mg PO DAILY [facility] Last Admin: 09/02/17 09:56 Dose: 20 mg Ferric Sodium Gluconate Complex 125 mg/ Sodium Chloride 110 mls @ 110 mls/hr IVPB DAILY [facility] Stop: 09/10/17 10:01 Last Admin: 09/02/17 10:48 Dose: 110 mls/hr Methylprednisolone (Solu-Medrol) 40 mg IV Q12H [facility] Pantoprazole Sodium (Protonix Ec Tab) 40 mg PO DAILY [facility] Last Admin: 09/02/17 09:56 Dose: 40 mg Saccharomyces Boulardii (Florastor) 250 mg PO BID [facility] Last Admin: 09/02/17 09:56 Dose: 250 mg Triamterene/HCTZ (Dyazide 25 Mg-37.5 Mg) 1 cap PO DAILY [facility] Last Admin: 09/02/17 09:56 Dose: 1 cap - Labs Labs: 09/02/17 07:09 09/02/17 07:09 - Constitutional Appears: Well, No Acute Distress - Head Exam Head Exam: ATRAUMATIC, NORMAL INSPECTION - Eye Exam Eye Exam: EOMI, Normal appearance - ENT Exam ENT Exam: Mucous Membranes Moist - Neck Exam Neck Exam: Full ROM - Respiratory Exam Respiratory Exam: Decreased Breath Sounds, NORMAL BREATHING PATTERN. absent: Rales, Rhonchi, Wheezes - Cardiovascular Exam Cardiovascular Exam: REGULAR RHYTHM, +S1, +S2 - GI/Abdominal Exam GI & Abdominal Exam: Soft, Normal Bowel Sounds. absent: Guarding, Rigid, Tenderness - Extremities Exam Extremities Exam: Normal Inspection. absent: Calf Tenderness - Neurological Exam Neurological Exam: Alert, Awake, CN II-XII Intact, Oriented x3 - Psychiatric Exam Psychiatric exam: Anxious, Normal Affect - Skin Skin Exam: Dry, Normal Color, Warm Assessment and Plan - Assessment and Plan (Free Text) Assessment: 1. Acute on Chronic COPD Exacerbation * Patient reports shortness of breath is improving * Chest pressure - EKG and BROOK were negative, TUMS were ordered * Continue to monitor on telemetry * Continue Duonebs 3ml INH Q6H KASHMIR * Albuterol prn * Continue pulmicort 0.5 INH Q12H * Solumedrol 40mg Q12H IVP * Echo: EF 60-65%, mild to moderate pulmonary HTN, mild to moderate TR * Supplemental O2 as needed * Bipap QHS * Per Dr Delgadillo recommendations, will D/C patient with Pulmicort, Stiolto and medrol dose melvin * Pulmonary on consult, Dr Delgadillo, help appreciated * Physical Therapy, Occupational Therapy ordered 2. Community Acquired Pneumonia * WBC 11.3 on admission, CRP > 15 * CXR: Right greater than left lower lobe patchy opacities worrisome for pneumonia, borderline cardiomegaly, ectatic aorta * Repeat CXR showing COPD, no lobar pneumonia, interval development of multifocal discoid atelectasis in the RLL and L lung base * Antibiotics discontinued * Bandemia resolved * Legionella, strep pneumo, mycoplasma negative * Blood cx showing no growth 3. History of Hypertension * Will continue Triamterene/HCTZ 25/37.5mg daily * Continue to monitor 4. Anemia * Hgb 9.2 on admission, today 8.8 * Anemia panel reviewed * Iron 67 * TIBC 298 * % sat 22 * Ferritin 80.2 * Vitamin B12 410 * Folate 11.7 * Stool occult negative, unknown cause of anemia * Continue IV iron * Heme/Onc consulted, f/u recommendations * Continue to monitor 5. History of Anxiety * Lexapro 20mg daily * On Xanax 0.5mg daily at home * Will continue to monitor GI/DVT ppx * Protonix 40mg PO daily * Lovenox 40mg SC <Ginny Esposito V - Last Filed: 09/03/17 18:36> Objective - Vital Signs/Intake and Output Vital Signs (last 24 hours): Temp Pulse Resp BP Pulse Ox 98 F 91 H 20 155/91 H 98 09/02/17 23:45 09/02/17 23:45 09/02/17 23:45 09/02/17 23:45 09/02/17 23:45 Intake and Output: 09/03/17 09/03/17 06:59 18:59 Intake Total 840 Balance 840 - Labs Labs: 09/02/17 07:09 09/02/17 07:09 Attending/Attestation - Attestation I have personally seen and examined this patient.: Yes I have fully participated in the care of the patient.: Yes I have reviewed all pertinent clinical information, including history, physical exam and plan: Yes Notes (Text): This is a late computer entry for 09/02/2017. Patient seen during morning rounds. Patient reports breathing is much better better. Patient is able to take better breaths and able to speak with more ease patient appears less anxious. This improvement secondary to the Pulmicort which was started yesterday. Will taper down IV steroids. Patient is asking to go home early today given that her daughter is home however I've explained to the patient that we will see how she does throughout the day before considering discharge this evening. Patient did have an anxious episode later in the afternoon. We did complete both an EKG and rolled me which did not show any acute findings and rolled me was negative. Echocardiogram was completed no acute findings as per echo except for mild to moderate pulmonary hypertension and elevated systolic pressure of the right ventricle likely secondary to patient's severe COPD. Will plan for discharge planning for tomorrow. Patient did have a repeat chest x-ray PA and lateral which is which does not show any infiltrate therefore we will discontinue IV antibiotics. Assessment/Plan 1. Acute on Chronic Severe COPD Exacerbation * Improving * ABG from admission reviewed-->CO2 retention * Duonebs 3ml INH Q6H KASHMIR * Albuterol prn * Advair 250/50 1 puff inhaled Q12H * Pulmicort 0.5mg inhaled Q12H * Solumedrol 40mg IVP Q12H * Echo: left ventricle is normal size. left ventricle systolic function is normal. EF: 60-65%. left ventricular diastolic function is normal. right ventricle is normal size. Right ventricle is normal size. Right ventricular systolic function is nomrmal. Left atrium size is nomral. Right atrium size is normal. Mild to moderate tricuspid regurgitation. Mild to moderate pulmonary hypertension. * Per Pulm, given patient is unable to physical to intake in breathe secondary to low FVC, recommend for Stilito and Pulmicort and discharge with Medrol dose pack. * Supplemental O2 as needed * Bipap QHS * D Dimer: negative * Pulmonary on consult, Dr Delgadillo, help appreciated * Physical Therapy, Occupational Therapy ordered 2. Community Acquired Pneumonia (ruled out) * Ruled out. * WBC 11.5 on admission, CRP > 15 (on IV steroids) * CXR: Right greater than left lower lobe patchy opacities worrisome for pneumonia, borderline cardiomegaly, ectatic aorta * CXR: COPD. No lobar pneumonia. Interval development of multifocal discoid atelectasis in the right lower lobe and left lung base * D/c Azithromycin (08/31/17) and Rocephin (08/31/17) * mycoplasma, Urine legionella ag, urine strep ag: negative * Urine culture: negative * Blood Culture: negative for 3 daysX2 3. History of Hypertension * Will continue Triamterene/HCTZ 25/37.5mg daily * Continue to monitor 4. Anemia * likely chronic disease * Consult: Dr. Tony Garcia (heme-onc) on board * Baseline Hgb not known * on IV iron 5. History of Anxiety * Patient on Xanax 0.5mg QHS PRN at home * Will continue to monitor 6. GI/DVT ppx * Protonix 40mg PO daily * Lovenox 40mg SC HS * Physical therapy eval * Occupational therapy eval
[2017-09-03] MEDS: Albuterol-Ipratrop 3 mg / 0.5 (3 ml) UD INH SCH ×3 (01:10→13:35)
[2017-09-03 05:44] VITALS: BP 155/91; TEMP 98; O2SAT 98
[2017-09-03] MEDS: Albuterol HFA 90 mcg/actuation (8 g) INH PRN (08:12)
[2017-09-03] MEDS: Budesonide 0.5 mg/2 ml Inhal Susp UD INH SCH (08:13)
--- NOTE | 2017-09-03 10:10 | CP.PCM.DIS ---
<Elsa Messina - Last Filed: 09/03/17 19:12> Provider - Provider Date of Admission: 08/30/17 22:26 Attending physician: Josemanuel Spence MD Consults: Heme/onc: Radha Pulmonary: Elamir Time Spent in preparation of Discharge (in minutes): 32 Hospital Course - Lab Results Lab Results: Micro Results 08/31/17 13:26 Urine Urine Culture - Final <10,000 CFU/ML. MULTIPLE SPECIES. PROBABLE CONTAMINATION. 08/31/17 Unknown Blood Blood Culture - Preliminary NO GROWTH AFTER 48 HOURS Most Recent Lab Values WBC 11.5 K/uL (4.8-10.8) H 09/02/17 07:09 RBC 4.54 Mil/uL (3.80-5.20) 09/02/17 07:09 Hgb 8.8 g/dL (11.0-16.0) L 09/02/17 07:09 Hct 28.4 % (34.0-47.0) L 09/02/17 07:09 MCV 62.7 fL (81.0-99.0) L 09/02/17 07:09 MCH 19.5 pg (27.0-31.0) L 09/02/17 07:09 MCHC 31.1 g/dL (33.0-37.0) L 09/02/17 07:09 RDW 16.5 % (11.5-14.5) H 09/02/17 07:09 Plt Count 169 K/uL (130-400) 09/02/17 07:09 MPV 12.0 fL (7.2-11.7) H 09/02/17 07:09 Neut % (Auto) 91.2 % (50.0-75.0) H 09/02/17 07:09 Lymph % (Auto) 5.9 % (20.0-40.0) L 09/02/17 07:09 Rankin % (Auto) 2.8 % (0.0-10.0) 09/02/17 07:09 Eos % (Auto) 0.0 % (0.0-4.0) 09/02/17 07:09 Baso % (Auto) 0.1 % (0.0-2.0) 09/02/17 07:09 Neut # 10.5 K/uL (1.8-7.0) H 09/02/17 07:09 Lymph # 0.7 K/uL (1.0-4.3) L 09/02/17 07:09 Rankin # 0.3 K/uL (0.0-0.8) 09/02/17 07:09 Eos # 0.0 K/uL (0.0-0.7) 09/02/17 07:09 Baso # 0.0 K/uL (0.0-0.2) 09/02/17 07:09 Neutrophils % (Manual) 92 % (50-75) H 09/02/17 07:09 Band Neutrophils % 1 % (0-2) 09/01/17 07:47 Lymphocytes % (Manual) 2 % (20-40) L 09/02/17 07:09 Monocytes % (Manual) 6 % (0-10) 09/02/17 07:09 Differential Comment 08/30/17 19:41 Platelet Estimate Normal (NORMAL) 09/02/17 07:09 Large Platelets Present 09/01/17 07:47 Polychromasia Slight 09/02/17 07:09 Hypochromasia (manual) Moderate 09/02/17 07:09 Poikilocytosis (manual Slight 09/01/17 07:47 Basophilic Stippling Slight 09/01/17 07:47 Anisocytosis (manual) Slight 09/02/17 07:09 Microcytosis (manual) Moderate 09/02/17 07:09 Target Cells Slight 09/02/17 07:09 Ovalocytes Slight 09/02/17 07:09 Retic Count 0.9 % (0.5-1.5) 08/31/17 17:26 D-Dimer, Quantitative < 200 ng/mlDDU (0-243) 08/31/17 17:26 Puncture Site Rr 08/30/17 21:25 pCO2 47 mm/Hg (35-45) H 08/30/17 21:25 pO2 137 mm/Hg (80-100) H 08/30/17 21:25 HCO3 27.4 mmol/L (21-28) 08/30/17 21:25 ABG pH 7.39 (7.35-7.45) 08/30/17 21:25 ABG Total CO2 29.9 mmol/L (22-28) H 08/30/17 21:25 ABG O2 Saturation 99.4 % (95-98) H 08/30/17 21:25 ABG Base Excess 3.1 mmol/L (-2.0-3.0) H 08/30/17 21:25 ABG Hemoglobin 8.7 g/dL (11.7-17.4) L 08/30/17 21:25 ABG Carboxyhemoglobin 1.5 % (0.5-1.5) 08/30/17 21:25 POC ABG HHb (Measured) 0.6 % (0.0-5.0) 08/30/17 21:25 ABG Methemoglobin 1.6 % (0.0-3.0) 08/30/17 21:25 Ralph Test Pos 08/30/17 21:25 A-a O2 Difference 61.0 mm/Hg 08/30/17 21:25 Respiratory Index 0.4 08/30/17 21:25 Hgb O2 Saturation 96.3 % (95.0-98.0) 08/30/17 21:25 Liter Flow 4.0 08/30/17 21:25 FiO2 36.0 % 08/30/17 21:25 Sodium 134 mmol/L (132-148) 09/02/17 07:09 Potassium 4.8 mmol/L (3.6-5.2) 09/02/17 07:09 Chloride 95 mmol/L (98-107) L 09/02/17 07:09 Carbon Dioxide 35 mmol/L (22-30) H 09/02/17 07:09 Anion Gap 9 (10-20) L 09/02/17 07:09 BUN 35 mg/dL (7-17) H 09/02/17 07:09 Creatinine 1.1 mg/dL (0.7-1.2) 09/02/17 07:09 Est GFR ( Amer) 60 09/02/17 07:09 Est GFR (Non-Af Amer) 49 09/02/17 07:09 POC Glucose (mg/dL) 190 mg/dL (65-110) H 09/01/17 21:25 Random Glucose 133 mg/dL (65-105) H 09/02/17 07:09 Calcium 8.6 mg/dl (8.6-10.4) 09/02/17 07:09 Phosphorus 3.2 mg/dL (2.5-4.5) 09/02/17 07:09 Magnesium 2.1 mg/dL (1.6-2.3) 09/02/17 07:09 Iron 67 ug/dL (37-170) 08/31/17 17:26 TIBC 298 ug/dL (250-450) 08/31/17 17:26 % Saturation 22 (20-55) 08/31/17 17:26 Ferritin 80.4 ng/mL 08/31/17 17:26 Total Bilirubin 0.2 mg/dL (0.2-1.3) 09/02/17 07:09 AST 18 U/L (14-36) 09/02/17 07:09 ALT 17 U/L (9-52) 09/02/17 07:09 Alkaline Phosphatase 47 U/L (38-126) 09/02/17 07:09 Total Creatine Kinase 38 U/L (30-135) 09/02/17 14:02 CK-MB (Mass) 3.32 ng/mL (0.0-3.38) 09/02/17 14:02 Troponin I < 0.0120 ng/mL (0.00-0.120) 09/02/17 14:02 C-React Prot High Sens > 15.00 mg/L (1.00-3.00) H 08/31/17 08:17 NT-Pro-B Natriuret Pep 126 pg/mL (0-900) 08/30/17 19:41 Total Protein 5.7 g/dL (6.3-8.3) L 09/02/17 07:09 Albumin 3.6 g/dL (3.5-5.0) 09/02/17 07:09 Globulin 2.0 gm/dL (2.2-3.9) L 09/02/17 07:09 Albumin/Globulin Ratio 1.8 (1.0-2.1) 09/02/17 07:09 Vitamin B12 410 pg/mL (239-931) 08/31/17 17:26 Folate 11.7 ng/mL 08/31/17 17:26 Procalcitonin < 0.05 NG/ML (0.19-0.49) L 08/31/17 10:45 Urine Color Straw (YELLOW) 09/01/17 07:25 Urine Clarity Clear (Clear) 09/01/17 07:25 Urine pH 5.0 (5.0-8.0) 09/01/17 07:25 Ur Specific Whipple 1.013 (1.003-1.030) 09/01/17 07:25 Urine Protein Negative mg/dL (NEGATIVE) 09/01/17 07:25 Urine Glucose (UA) Normal mg/dL (Normal) 09/01/17 07:25 Urine Ketones Negative mg/dL (NEGATIVE) 09/01/17 07:25 Urine Blood Negative (NEGATIVE) 09/01/17 07:25 Urine Nitrate Negative (NEGATIVE) 09/01/17 07:25 Urine Bilirubin Negative (NEGATIVE) 09/01/17 07:25 Urine Urobilinogen Normal mg/dL (0.2-1.0) 09/01/17 07:25 Ur Leukocyte Esterase Neg Stephanie/uL (Negative) 09/01/17 07:25 Urine WBC (Auto) 1 /hpf (0-5) 09/01/17 07:25 Urine RBC (Auto) < 1 /hpf (0-3) 09/01/17 07:25 Urine Bacteria Occ (<OCC) H 09/01/17 07:25 Stool Occult Blood Negative (NEGATIVE) 08/31/17 22:30 H.influenzae Type B Ag Negative (NEGATIVE) 08/31/17 10:59 Ur L.pneumophila Ag Negative (NEGATIVE) 08/31/17 10:45 Mycoplasma pneumon IgM Negative (NEGATIVE) 08/31/17 10:45 N.meningitidis ACY/W135 Negative (NEGATIVE) 08/31/17 10:59 N.meningi B/E.coli K1 Ag Negative (NEGATIVE) 08/31/17 10:59 Group B Strep Antigen Negative (NEGATIVE) 08/31/17 10:59 S. pneumoniae Antigen Negative (NEGATIVE) 08/31/17 10:59 - Hospital Course Hospital Course: Patient is a 67F with a PMH of COPD on home O2 (2L) who comes to the ED after several months of worsening SOB. Patient sees Dr. Metzger as outpatient. She thought her condition would get better on its own so she put of coming to the hospital. She is compliant with her medications. Patient thinks her medications need to be changed. During giving went to [place] and received antibiotics and prednisone that made her feel better for a short while. Called her primary about a month ago and he gave her antibiotics and a Medrol dose pack. Her SOB continued to worsen. Patient was admitted and treated for acute COPD exacerbation. Patient was monitored on telemetry. Pulmonology was consulted, Dr Delgadillo. Patient was started on Solumedrol IVP and Duonebs. She was placed on Bipap at night. Her home medications were verified with her pharmacy. CXR on admission showed Right greater than left lower lobe patchy opacities worrisome for pneumonia, borderline cardiomegaly, ectatic aorta. Patient was started on Azithromycin and Rocephin to cover for pneumonia. Blood cx showed no growth. Urine cx were negative. Repeat CXR showed COPD, no lobar pneumonia, interval development of multifocal discoid atelectasis in the RLL and L lung base. Antibiotics were discontinued. Pneumonia was ruled out Patient was initially started on advair but stated that she was incapable of using the disckus properly. Patient was then started on Pulmicort. Solumedrol was tapered. Patient breathing improved significantly. Patient was also found to be anemic. Baseline hemoglobin was unknown. Anemia workup was done, Stool occult was negative. Heme/onc, Dr Tony Garcia was consulted. Patient was started on IV iron. Physical therapy evaluated the patient and recommended home with services. During hospital stay, patient was complaining of chest pressure that she attributed to gas. EKG and BROOK were negative. Chest pressure resolved with TUMS. On day of discharge, patient was doing well. Speaking in complete sentences and transferring without difficulty. She was tolerating diet. Patient was medically stable and clear for discharge home. Medication regimen was explained to the patient and instructions were written down for her in detail (copy left in patient chart). Patient to follow up with Dr Metzger within 1 week. Patient also to follow up with Dr Delgadillo and Dr Tony Garcia within 2 week. 1. Acute on Chronic COPD Exacerbation (stable) * Patient reports shortness of breath is improving * Chest pressure - EKG and BROOK were negative, TUMS were ordered * Continue to monitor on telemetry * Continue Duonebs 3ml INH Q6H KASHMIR * Albuterol prn * Continue pulmicort 0.5 INH Q12H * Solumedrol 40mg Q12H IVP * Echo: EF 60-65%, mild to moderate pulmonary HTN, mild to moderate TR * Supplemental O2 as needed * Bipap QHS * Per Dr Delgadillo recommendations, will D/C patient with Pulmicort, Stiolto and medrol dose melvin * Pulmonary on consult, Dr Delgadillo, help appreciated * Physical Therapy, Occupational Therapy ordered 2. Community Acquired Pneumonia (ruled out) * WBC 11.3 on admission, CRP > 15 * CXR: Right greater than left lower lobe patchy opacities worrisome for pneumonia, borderline cardiomegaly, ectatic aorta * Repeat CXR showing COPD, no lobar pneumonia, interval development of multifocal discoid atelectasis in the RLL and L lung base * Antibiotics discontinued * Bandemia resolved * Legionella, strep pneumo, mycoplasma negative * Blood cx showing no growth 3. History of Hypertension (chronic) * Will continue Triamterene/HCTZ 25/37.5mg daily * Continue to monitor 4. Anemia (Stable) * Hgb 9.2 on admission, today 8.8 * Anemia panel reviewed * Iron 67 * TIBC 298 * % sat 22 * Ferritin 80.2 * Vitamin B12 410 * Folate 11.7 * Stool occult negative, unknown cause of anemia * Continue IV iron * Heme/Onc consulted, f/u recommendations * Continue to monitor 5. History of Anxiety (chronic) * Lexapro 20mg daily * On Xanax 0.5mg daily at home * Will continue to monitor Discharge Exam - Head Exam Head Exam: ATRAUMATIC, NORMAL INSPECTION - Eye Exam Eye Exam: EOMI, Normal appearance - ENT Exam ENT Exam: Mucous Membranes Moist - Respiratory Exam Respiratory Exam: Decreased Breath Sounds, Clear to PA & Lateral, NORMAL BREATHING PATTERN. absent: Accessory Muscle Use, Prolonged Expiratory Phase, Rales, Rhonchi, Respiratory Distress - Cardiovascular Exam Cardiovascular Exam: REGULAR RHYTHM, +S1, +S2 - GI/Abdominal Exam GI & Abdominal Exam: Normal Bowel Sounds, Soft. absent: Guarding, Rebound, Rigid, Tenderness - Rectal Exam Rectal Exam: Deferred - Extremities Exam Extremities exam: normal inspection, pedal pulses present - Neurological Exam Neurological exam: Alert, CN II-XII Intact, Oriented x3 - Psychiatric Exam Psychiatric exam: Anxious, Normal Mood - Skin Skin Exam: Normal Color, Warm Discharge Plan - Discharge Medications Prescriptions: Albuterol 0.083% [Albuterol Sulfate 3 Ml] 3 ml IH Q6H PRN 30 Days neb PRN Reason: Shortness Of Breath Budesonide [Pulmicort Respules] 0.5 mg INH RQ12 #60 neb Fluticasone Propionate [Flovent Diskus] 50 mcg IH Q12H 30 Days blst.w.dev Methylprednisolone [Medrol Dose Pack (21 tabs)] 4 mg PO DAILY #21 mg Pantoprazole Sodium [Protonix] 40 mg PO DAILY #30 ect Tiotropium Br/Olodaterol HCl [Stiolto Respimat Inhal [place]] 4 gm IH DAILY #1 mist.inhal - Follow Up Plan Condition: FAIR Disposition: HOME/ ROUTINE Instructions: COPD (Chronic Obstructive Pulmonary Disease) (DC), COPD (Chronic Obstructive Pulmonary Disease) (GEN), Anxiety (DC), Anxiety (GEN) Additional Instructions: Patient is medically stable for discharge home. Patient to follow up with Dr Metzger (PMD) within 1 week of discharge. Patient recommended to follow up with Dr Tony Garcia for anemia and to f/u hemoglobinopathy panel. Patient recommeded to follow up with Dr Delgadillo for COPD. Prescriptions following: Medrol Dose pack, Stiolto 1 puff daily, Pulimcort 0.5mg Q12H, Nebulizer Q6H prn SOB, Flovent 1 puff Q12H, Protonix 40mg daily Referrals: Stanley Garcia MD [Staff Provider] - 2 Weeks Rosalind Delgadillo MD [Staff Provider] - 2 Weeks Frankie Metzger MD [Staff Provider] - 1 Week <Ginny Esposito V - Last Filed: 09/03/17 20:09> Provider - Provider Date of Admission: 08/30/17 22:26 Attending physician: Josemanuel Spence MD Primary care physician: Dr. Metzger [facility] Course - Lab Results Lab Results: Micro Results 08/31/17 Unknown Blood Blood Culture - Preliminary NO GROWTH AFTER 3 DAYS 08/31/17 13:26 Urine Urine Culture - Final <10,000 CFU/ML. MULTIPLE SPECIES. PROBABLE CONTAMINATION. Most Recent Lab Values WBC 11.5 K/uL (4.8-10.8) H 09/02/17 07:09 RBC 4.54 Mil/uL (3.80-5.20) 09/02/17 07:09 Hgb 8.8 g/dL (11.0-16.0) L 09/02/17 07:09 Hct 28.4 % (34.0-47.0) L 09/02/17 07:09 MCV 62.7 fL (81.0-99.0) L 09/02/17 07:09 MCH 19.5 pg (27.0-31.0) L 09/02/17 07:09 MCHC 31.1 g/dL (33.0-37.0) L 09/02/17 07:09 RDW 16.5 % (11.5-14.5) H 09/02/17 07:09 Plt Count 169 K/uL (130-400) 09/02/17 07:09 MPV 12.0 fL (7.2-11.7) H 09/02/17 07:09 Neut % (Auto) 91.2 % (50.0-75.0) H 09/02/17 07:09 Lymph % (Auto) 5.9 % (20.0-40.0) L 09/02/17 07:09 Rankin % (Auto) 2.8 % (0.0-10.0) 09/02/17 07:09 Eos % (Auto) 0.0 % (0.0-4.0) 09/02/17 07:09 Baso % (Auto) 0.1 % (0.0-2.0) 09/02/17 07:09 Neut # 10.5 K/uL (1.8-7.0) H 09/02/17 07:09 Lymph # 0.7 K/uL (1.0-4.3) L 09/02/17 07:09 Rankin # 0.3 K/uL (0.0-0.8) 09/02/17 07:09 Eos # 0.0 K/uL (0.0-0.7) 09/02/17 07:09 Baso # 0.0 K/uL (0.0-0.2) 09/02/17 07:09 Neutrophils % (Manual) 92 % (50-75) H 09/02/17 07:09 Band Neutrophils % 1 % (0-2) 09/01/17 07:47 Lymphocytes % (Manual) 2 % (20-40) L 09/02/17 07:09 Monocytes % (Manual) 6 % (0-10) 09/02/17 07:09 Differential Comment 08/30/17 19:41 Platelet Estimate Normal (NORMAL) 09/02/17 07:09 Large Platelets Present 09/01/17 07:47 Polychromasia Slight 09/02/17 07:09 Hypochromasia (manual) Moderate 09/02/17 07:09 Poikilocytosis (manual Slight 09/01/17 07:47 Basophilic Stippling Slight 09/01/17 07:47 Anisocytosis (manual) Slight 09/02/17 07:09 Microcytosis (manual) Moderate 09/02/17 07:09 Target Cells Slight 09/02/17 07:09 Ovalocytes Slight 09/02/17 07:09 Retic Count 0.9 % (0.5-1.5) 08/31/17 17:26 D-Dimer, Quantitative < 200 ng/mlDDU (0-243) 08/31/17 17:26 Puncture Site Rr 08/30/17 21:25 pCO2 47 mm/Hg (35-45) H 08/30/17 21:25 pO2 137 mm/Hg (80-100) H 08/30/17 21:25 HCO3 27.4 mmol/L (21-28) 08/30/17 21:25 ABG pH 7.39 (7.35-7.45) 08/30/17 21:25 ABG Total CO2 29.9 mmol/L (22-28) H 08/30/17 21:25 ABG O2 Saturation 99.4 % (95-98) H 08/30/17 21:25 ABG Base Excess 3.1 mmol/L (-2.0-3.0) H 08/30/17 21:25 ABG Hemoglobin 8.7 g/dL (11.7-17.4) L 08/30/17 21:25 ABG Carboxyhemoglobin 1.5 % (0.5-1.5) 08/30/17 21:25 POC ABG HHb (Measured) 0.6 % (0.0-5.0) 08/30/17 21:25 ABG Methemoglobin 1.6 % (0.0-3.0) 08/30/17 21:25 Ralph Test Pos 08/30/17 21:25 A-a O2 Difference 61.0 mm/Hg 08/30/17 21:25 Respiratory Index 0.4 08/30/17 21:25 Hgb O2 Saturation 96.3 % (95.0-98.0) 08/30/17 21:25 Liter Flow 4.0 08/30/17 21:25 FiO2 36.0 % 08/30/17 21:25 Sodium 134 mmol/L (132-148) 09/02/17 07:09 Potassium 4.8 mmol/L (3.6-5.2) 09/02/17 07:09 Chloride 95 mmol/L (98-107) L 09/02/17 07:09 Carbon Dioxide 35 mmol/L (22-30) H 09/02/17 07:09 Anion Gap 9 (10-20) L 09/02/17 07:09 BUN 35 mg/dL (7-17) H 09/02/17 07:09 Creatinine 1.1 mg/dL (0.7-1.2) 09/02/17 07:09 Est GFR ( Amer) 60 09/02/17 07:09 Est GFR (Non-Af Amer) 49 09/02/17 07:09 POC Glucose (mg/dL) 190 mg/dL (65-110) H 09/01/17 21:25 Random Glucose 133 mg/dL (65-105) H 09/02/17 07:09 Calcium 8.6 mg/dl (8.6-10.4) 09/02/17 07:09 Phosphorus 3.2 mg/dL (2.5-4.5) 09/02/17 07:09 Magnesium 2.1 mg/dL (1.6-2.3) 09/02/17 07:09 Iron 67 ug/dL (37-170) 08/31/17 17:26 TIBC 298 ug/dL (250-450) 08/31/17 17:26 % Saturation 22 (20-55) 08/31/17 17:26 Ferritin 80.4 ng/mL 08/31/17 17:26 Total Bilirubin 0.2 mg/dL (0.2-1.3) 09/02/17 07:09 AST 18 U/L (14-36) 09/02/17 07:09 ALT 17 U/L (9-52) 09/02/17 07:09 Alkaline Phosphatase 47 U/L (38-126) 09/02/17 07:09 Total Creatine Kinase 38 U/L (30-135) 09/02/17 14:02 CK-MB (Mass) 3.32 ng/mL (0.0-3.38) 09/02/17 14:02 Troponin I < 0.0120 ng/mL (0.00-0.120) 09/02/17 14:02 C-React Prot High Sens > 15.00 mg/L (1.00-3.00) H 08/31/17 08:17 NT-Pro-B Natriuret Pep 126 pg/mL (0-900) 08/30/17 19:41 Total Protein 5.7 g/dL (6.3-8.3) L 09/02/17 07:09 Albumin 3.6 g/dL (3.5-5.0) 09/02/17 07:09 Globulin 2.0 gm/dL (2.2-3.9) L 09/02/17 07:09 Albumin/Globulin Ratio 1.8 (1.0-2.1) 09/02/17 07:09 Vitamin B12 410 pg/mL (239-931) 08/31/17 17:26 Folate 11.7 ng/mL 08/31/17 17:26 Procalcitonin < 0.05 NG/ML (0.19-0.49) L 08/31/17 10:45 Urine Color Straw (YELLOW) 09/01/17 07:25 Urine Clarity Clear (Clear) 09/01/17 07:25 Urine pH 5.0 (5.0-8.0) 09/01/17 07:25 Ur Specific Whipple 1.013 (1.003-1.030) 09/01/17 07:25 Urine Protein Negative mg/dL (NEGATIVE) 09/01/17 07:25 Urine Glucose (UA) Normal mg/dL (Normal) 09/01/17 07:25 Urine Ketones Negative mg/dL (NEGATIVE) 09/01/17 07:25 Urine Blood Negative (NEGATIVE) 09/01/17 07:25 Urine Nitrate Negative (NEGATIVE) 09/01/17 07:25 Urine Bilirubin Negative (NEGATIVE) 09/01/17 07:25 Urine Urobilinogen Normal mg/dL (0.2-1.0) 09/01/17 07:25 Ur Leukocyte Esterase Neg Stephanie/uL (Negative) 09/01/17 07:25 Urine WBC (Auto) 1 /hpf (0-5) 09/01/17 07:25 Urine RBC (Auto) < 1 /hpf (0-3) 09/01/17 07:25 Urine Bacteria Occ (<OCC) H 09/01/17 07:25 Stool Occult Blood Negative (NEGATIVE) 08/31/17 22:30 H.influenzae Type B Ag Negative (NEGATIVE) 08/31/17 10:59 Ur L.pneumophila Ag Negative (NEGATIVE) 08/31/17 10:45 Mycoplasma pneumon IgM Negative (NEGATIVE) 08/31/17 10:45 N.meningitidis ACY/W135 Negative (NEGATIVE) 08/31/17 10:59 N.meningi B/E.coli K1 Ag Negative (NEGATIVE) 08/31/17 10:59 Group B Strep Antigen Negative (NEGATIVE) 08/31/17 10:59 S. pneumoniae Antigen Negative (NEGATIVE) 08/31/17 10:59 Attending/Attestation - Attestation I have personally seen and examined this patient.: Yes I have fully participated in the care of the patient.: Yes I have reviewed all pertinent clinical information, including history, physical exam and plan: Yes Notes (Text): Patient seen, examined, and case discussed with biomedical service engineer. Patient reports breathing is a lot improved. Patient has relief and is able to talk comfortably. I've personally written out patient's new medications and old medications and have explained how each medication works. Patient given a hand written explanation of medications for her use and a copy is provided in the chart. Upon discharge: Patient provided scripts for the followin. Albuterol Nebules one-month supply. To be use as needed for shortness of breath. 2. Pulmicort Nebules one-month supply. To be taken as one's inhaled in the morning and once inhaled in the evening. Described as an inhaled corticosteroid. 3. To start inhaler called Stilito (which is both antimuscarnic and LABA) which is recommended grey roll worker, because patient has poor vital capacity is unable to tolerate Advair. Inhaler should arrive by Tuesday per discussion with pharmacy and being delivered to patient's house. 4. Prescription provided for Flovent high flow 1 puff inhaled twice a day. Described as an inhaled steroid. If patient cannot tolerate this inhaler she is definitely use Pulmicort nebulizer. Patient recommended to stop the following: Advair and Spiriva given that she cannot physically take in the breath required to utilize medications appropriately. This was explained to her by the grey roll worker during the admission. Patient reports she has sufficient oxygen and has BiPAP at home. Patient also given Medrol Dosepak advised to take with food to avoid any stomach ulcers and with Protonix as GI prophylaxis. Finally patient recommended to follow up with grey roll worker either Dr. Munoz who saw her during the hospitalization as instrumentation chemist or to seek referral from Dr. Metzger her primary care doctor for Dr. Irwin Jj who is unavailable this week in the hospital for further follow-up. Patient is medically stable for discharge. Have discussed with case and social work program coordinator patient will leave by transportation and via logistic care and recommended strongly she'll follow-up with Dr. Metzger in the following week Patient has been requesting refill on Xanax. I have checked on the [place] prescription monitoring program website patient's last prescription was filled on August 15 with 30 tabs I have informed patient I will not be giving providing refills and she should have sufficient quality part to make an appointment for follow-up with her PMD. This is a summary of patient's hospitalization please refer to EMR for further details of the record. Assessment/Plan 1. Acute on Chronic Severe COPD Exacerbation--Stable * Echo: left ventricle is normal size. left ventricle systolic function is normal. EF: 60-65%. left ventricular diastolic function is normal. right ventricle is normal size. Right ventricle is normal size. Right ventricular systolic function is nomrmal. Left atrium size is nomral. Right atrium size is normal. Mild to moderate tricuspid regurgitation. Mild to moderate pulmonary hypertension. * Per Pulm, given patient is unable to physical to intake in breathe secondary to low FVC, recommend for Stilito and Pulmicort and discharge with Medrol dose pack. * Patient provided scripts for the following: * 1. Albuterol Nebules one-month supply. To be use as needed for shortness of breath. * 2. Pulmicort Nebules one-month supply. To be taken as one's inhaled in the morning and once inhaled in the evening. Described as an inhaled corticosteroid. * 3. To start inhaler called Stilito (which is both antimuscarnic and LABA) which is recommended grey roll worker, because patient has poor vital capacity is unable to tolerate Advair. Inhaler should arrive by Tuesday per discussion with pharmacy and being delivered to patient's house. * 4. Prescription provided for Flovent high flow 1 puff inhaled twice a day. Described as an inhaled steroid. If patient cannot tolerate this inhaler she is definitely use Pulmicort nebulizer. * Patient recommended to stop the following: * Advair and Spiriva given that she cannot physically take in the breath required to utilize medications appropriately. This was explained to her by the grey roll worker during the admission. * Patient reports she has sufficient oxygen and has BiPAP at home. * Patient also given Medrol Dosepak advised to take with food to avoid any stomach ulcers and with Protonix as GI prophylaxis. * Finally patient recommended to follow up with grey roll worker either Dr. Munoz who saw her during the hospitalization as instrumentation chemist or to seek referral from Dr. Metzger her primary care doctor for Dr. Irwin Jj who is unavailable this week in the hospital for further follow-up. 2. Community Acquired Pneumonia (ruled out) * WBC 11.5 on admission, CRP > 15 (on IV steroids) * CXR: Right greater than left lower lobe patchy opacities worrisome for pneumonia, borderline cardiomegaly, ectatic aorta * CXR: COPD. No lobar pneumonia. Interval development of multifocal discoid atelectasis in the right lower lobe and left lung base * D/c Azithromycin (08/31/17) and Rocephin (08/31/17) * mycoplasma, Urine legionella ag, urine strep ag: negative * Urine culture: negative * Blood Culture: negative for 3 daysX2 3. History of Hypertension, chronic * Will continue Triamterene/HCTZ 25/37.5mg daily * Continue to monitor 4. Anemia,chronic * likely chronic disease * Consult: Dr. Tony Garcia (heme-onc) on board * Baseline Hgb not known * on IV iron 5. History of Anxiety, chronic * Patient on Xanax 0.5mg QHS PRN at home * Will continue to monitor 6. GI/DVT ppx * Protonix 40mg PO daily * Lovenox 40mg SC HS * Physical therapy eval * Occupational therapy eval
[2017-09-03] MEDS: Ferric Sodium Gluconat Complex 125 MG in Sodium Chloride 0.9% 100 ML IVPB SCH (10:26)
[2017-09-03] MEDS: Enoxaparin 40 mg Syringe SC SCH (10:27)
[2017-09-03] MEDS: MethylPREDNISolone 40 mg Vial IV SCH (10:27)
[2017-09-03] MEDS: hydroCHLOROthiazide-Triamterene 25 mg-37.5 mg Cap UD PO SCH (10:27)
[2017-09-03] MEDS: Pantoprazole 40 mg EC Tab PO SCH (10:27)
== END 2017-09-03 15:30 | disposition home or self-care (01) | DRG 192 ==
LOC: C.ER 19:10 → C.9E 22:26 → C.3T 22:46 → C.6T 08-31 14:05
PROVIDERS: ADMIT Family Medicine; ATTEND Family Medicine
PROC: 5A09457 Assistance with Respiratory Ventilation, 24-96 Consecutive Hours, Continuous Positive Airway Pressure (ICD-10-PCS; principal; 2017-08-31)
DX: J44.1 Chronic obstructive pulmonary disease with (acute) exacerbation (principal); I27.20 Pulmonary hypertension, unspecified; Z99.81 Dependence on supplemental oxygen; D63.8 Anemia in other chronic diseases classified elsewhere; I36.1 Nonrheumatic tricuspid (valve) insufficiency; I10 Essential (primary) hypertension; F41.9 Anxiety disorder, unspecified; Z79.899 Other long term (current) drug therapy; Z79.51 Long term (current) use of inhaled steroids; Z79.52 Long term (current) use of systemic steroids; Z87.891 Personal history of nicotine dependence; D72.829 Elevated white blood cell count, unspecified

== ENCOUNTER 2017-09-20 15:44 | Inpatient (IN) | payer OTHER ==
[2017-09-20 15:45] VITALS: BMI 34.2
[2017-09-20] MEDS ORDERED: Albuterol 0.042% Inhal Sol (1.25 mg/3 mL) UD ONE (16:05)
[2017-09-20] MEDS ORDERED: Albuterol-Ipratrop 3 mg / 0.5 (3 ml) UD IH STA ×2 (16:55→17:35)
--- NOTE | 2017-09-20 16:56 | C.PDOC ---
History Of Present Illness 67 yo female w/PMHx of COPD exacerbation, at home O2 2L, hx of intubation " years ago", present to Ed for evaluation of asthma sx exacerbation gradually developed for past week associate dwith SOB, wheezing, not improving with asthma medication at home. Pt admits, " was sick, had fever and has been coughing for past week". Pt admits, had similar sx 3-4 weeks ago when was admitted to hospital. Otherwise, pt denies high fever for past few days, headache, dizziness, neck pain, drooling, dysphagia, dyspnea, palpitation, CP, diaphoresis, abd. pain, V/D, back pain. At the time of evaluation, noted mild resp. distress. PMD: Yassine PMH: Anxiety, COPD home O2 2L PSH: Partial hysterectomy FH: unremarkable SH: Former smoker, stopped after she was intubated for ARDS years ago, Denies alcohol use, No drugs Meds: See MAR All: None Time Seen by Provider: 09/20/17 16:50 Chief Complaint (Nursing): Shortness Of Breath History Per: Patient Past Medical History Reviewed: Historical Data, Nursing Documentation, Vital Signs Vital Signs: Last Vital Signs Temp 98.8 F 09/20/17 15:57 Pulse 87 09/20/17 15:57 Resp 20 09/20/17 15:57 BP 152/77 H 09/20/17 15:57 Pulse Ox 99 09/20/17 18:15 - Medical History PMH: Anxiety, COPD, HTN Denies: Chronic Kidney Disease - [facility] Procedures ASSISTANCE WITH RESPIRATORY VENTILATION, 24-96 HRS, CPAP (08/30/17) Family History: States: Unknown Family Hx - Social History Hx Tobacco Use: No Hx Alcohol Use: No Hx Substance Use: No - Immunization History Hx Tetanus Toxoid Vaccination: Yes Hx Influenza Vaccination: Yes Hx Pneumococcal Vaccination: Yes Review Of Systems Except As Marked, All Systems Reviewed And Found Negative. Constitutional: Positive for: Fever, Malaise ENT: Positive for: Nose Discharge, Nose Congestion. Negative for: Throat Pain Cardiovascular: Negative for: Chest Pain, Edema, Light Headedness Respiratory: Positive for: Cough, Shortness of Breath, Wheezing Gastrointestinal: Negative for: Nausea, Vomiting, Abdominal Pain, Diarrhea Skin: Negative for: Rash Neurological: Negative for: Weakness, Numbness, Altered Mental Status, Dizziness Physical Exam - Physical Exam Appears: Well, Non-toxic, No Acute Distress Skin: Normal Color, Warm, Dry, No Rash Head: Normacephalic Eye(s): bilateral: PERRL Nose: No Discharge Oral Mucosa: Moist, No Drooling Throat: No Erythema, No Drooling Neck: Trachea Midline, Supple Cardiovascular: Rhythm Regular, No Murmur, No JVD Respiratory: No Decreased Breath Sounds, Accessory Muscle Use, No Rales, No Rhonchi, No Stridor, Wheezing (diffuse expiratory B/L) Gastrointestinal/Abdominal: Soft, No Tenderness, No Distention, No Guarding Back: No CVA Tenderness Extremity: Normal ROM, No Pedal Edema, No Deformity Neurological/Psych: Oriented x3, Normal Speech ED Course And Treatment - Laboratory Results Result Diagrams: 09/20/17 17:05 09/20/17 17:05 ECG: Interpreted By Me, Viewed By Me (and ED attending) ECG Interpretation: No Changes From Prior Interpretation Of ECG: SR@87/min, NAD, no acute T wave or ST-T changes. O2 Sat by Pulse Oximetry: 99 Pulse Ox Interpretation: Normal - Other Rad CXR X-Ray: Read By Radiologist Interpretation: INDINGS: Examination limited by habitus. LUNGS: Bibasilar atelectasis. Please note that chest x-ray has limited sensitivity for the detection of pulmonary masses. PLEURA: No significant pleural effusion identified. No definite pneumothorax . CARDIOVASCULAR: The cardiomediastinal silhouette appears within normal limits of size. OSSEOUS STRUCTURES: No acute osseous abnormality identified. VISUALIZED UPPER ABDOMEN: Unremarkable. OTHER FINDINGS: None. IMPRESSION: Bibasilar atelectasis Progress Note: Case discussed with and admission arranged. Disposition - Disposition Disposition: HOSPITALIZED Disposition Time: 18:14 Condition: STABLE - Clinical Impression Clinical Impression: COPD (chronic obstructive pulmonary disease), Influenza B
[2017-09-20 17:09] LABS: BASO % 0.6 % (0.0-2.0); EOS % 0.5 % (0.0-4.0); HEMOGLOBIN 9.5 g/dL (11.0-16.0); LYMPH # 0.9 K/uL (1.0-4.3); LYMPH % 12.3 % (20.0-40.0); MEAN CELL VOLUME 62.3 fL (81.0-99.0); MEAN CORPUSCULAR HEMOGLOBIN 18.9 pg (27.0-31.0); MEAN CORPUSCULAR HGB CONC 30.3 g/dL (33.0-37.0); MEAN PLATELET VOLUME 10.8 fL (7.2-11.7); MONO # 0.6 K/uL (0.0-0.8); MONO % 9.3 % (0.0-10.0); NEUT # 5.4 K/uL (1.8-7.0); NEUT % 77.3 % (50.0-75.0); RBC 5.01 Mil/uL (3.80-5.20); RED CELL DISTRIBUTION WIDTH 16.4 % (11.5-14.5)
[2017-09-20 17:26] LABS: PROTHROMBIN TIME 10.9 SECONDS (9.7-12.2)
[2017-09-20] MEDS ORDERED: Piperacillin/Tazobact 3.375 gm 100 ML IV STA (17:38)
[2017-09-20] MEDS ORDERED: Albuterol-Ipratrop 3 mg / 0.5 (3 ml) UD ONE (17:55)
[2017-09-20] MEDS ORDERED: Piperacill/Tazo 3.375gm in Dex 3.375 GM/50 ML BAG IVPB SCH (18:00)
[2017-09-20 18:06] LABS: ALB/GLOB RATIO 1.4 (1.0-2.1); ALBUMIN 3.7 g/dL (3.5-5.0); ALT/SGPT 29 U/L (9-52); AST/SGOT 35 U/L (14-36); B-TYPE NATRIURETIC PEPTIDE 143 pg/mL (0-900); BLOOD UREA NITROGEN 16 mg/dL (7-17); CALCIUM 7.9 mg/dl (8.6-10.4); GFR AFRICAN-AMERICAN > 60; GFR NON-AFRICAN AMERICAN > 60
[2017-09-20] MEDS ORDERED: Magnesium Sulfate 1 gm in D5W 1 GM/100 ML BAG IVPB ONE ×2 (18:14→18:43)
--- NOTE | 2017-09-20 18:44 | RAD ---
HISTORY: SOB COMPARISON: Chest x-ray performed 09/01/17 TECHNIQUE: Chest, one view. FINDINGS: Examination limited by habitus. LUNGS: Bibasilar atelectasis. Please note that chest x-ray has limited sensitivity for the detection of pulmonary masses. PLEURA: No significant pleural effusion identified. No definite pneumothorax . CARDIOVASCULAR: The cardiomediastinal silhouette appears within normal limits of size. OSSEOUS STRUCTURES: No acute osseous abnormality identified. VISUALIZED UPPER ABDOMEN: Unremarkable. OTHER FINDINGS: None. IMPRESSION: Bibasilar atelectasis.
[2017-09-20 18:54] LABS: INFLUENZA A B POS FOR INFLUENZA B (NEGATIVE)
[2017-09-20 19:11] LABS: ABG ALLEN TEST YES; ARTERIAL BLOOD GAS HCO3 35.6 mmol/L (21-28); ARTERIAL BLOOD GAS HEMOGLOBIN 8.8 g/dL (11.7-17.4); ARTERIAL BLOOD GAS O2 SAT 99.5 % (95-98); ARTERIAL BLOOD GAS PCO2 55 mm/Hg (35-45); ARTERIAL BLOOD GAS PH 7.46 (7.35-7.45); ARTERIAL BLOOD GAS PO2 109 mm/Hg (80-100); ARTERIAL BLOOD GAS TCO2 40.8 mmol/L (22-28)
[2017-09-21] MEDS: Piperacill/Tazo 3.375gm in Dex 3.375 GM/50 ML BAG IVPB SCH ×3 (00:30→12:00)
[2017-09-21] MEDS ORDERED: Albuterol-Ipratrop 3 mg / 0.5 (3 ml) UD INH STA (03:28)
[2017-09-21] MEDS ORDERED: MethylPREDNISolone 40 mg Vial IV ONE (03:29)
[2017-09-21] MEDS: Albuterol-Ipratrop 3 mg / 0.5 (3 ml) UD INH SCH ×3 (07:28→19:22)
[2017-09-21] MEDS: Tiotropium 18 mcg Cap For Inhalation INH SCH (07:28)
[2017-09-21] MEDS: hydroCHLOROthiazide-Triamterene 25 mg-37.5 mg Cap UD PO SCH (12:32)
[2017-09-21] MEDS: Pantoprazole 40 mg EC Tab PO SCH (12:33)
[2017-09-21] MEDS: MethylPREDNISolone 40 mg Vial IV SCH ×2 (13:05→22:10)
--- NOTE | 2017-09-21 13:19 | CP.PCM.CON ---
History of Present Illness - History of Present Illness History of Present Illness: INFECTIOUS DISEASE CONSULT; HPI; 67 yo female w/PMHx of COPD exacerbation, at home O2 2L, hx of intubation " 2008 "HE present to Ed 0N 09/20/17 for evaluation of asthma sx exacerbation gradually developed for past week associated with SOB, wheezing, not improving with asthma medication at home. Pt admits, " was sick, had fever and has been coughing for past week". Pt admits, had similar sx 3-4 weeks ago when was admitted to hospital. Otherwise, pt denies high fever for past few days, headache, dizziness, neck pain, drooling , dysphagia, dyspnea, palpitation, CP, diaphoresis, abd. pain, V/D, back pain. CHEST X-RAY ON ADMISSION SHOWED BIBASILAR ATELECTASIS. PATIENT WAS FOUND TO HAVE INFLUENZA B RAPID ANTIGEN TEST POSITIVE. PATIENT STILL COMPLAINS OF SHORTNESS OF BREATH ON EXERTION AND CHEST PAIN ON COUGHING. sHE ALSO COMPLAINS OF SUBJECTIVE FEVERS. PT. PRESENTLY ON tAMIFLU 75 MG BY MOUTH TWICE A DAY AND iv zOSYN 3.375 EVERY 6 HOURLY. INFECTIOUS DISEASE CONSULTATION REQUESTED BY PMD FOR INFLUENZA /AND EXACERBATION OF COPD. PATIENT ADMITS TO RECENT VACCINATION OF INFLUENZA/AND IS UP-TO-DATE ON PNEUMOCOCCAL VACCINE. PATIENT DENIES ANY RECENT TRAVEL OR SICK CONTACTS EXCEPT FOR RECENT HOSPITALIZATION 3-4 WEEKS AGO FOR SIMILAR COMPLAINTS. PATIENT DENIES ANY HEMOPTYSIS OR HEMATEMESIS PMH: Anxiety, COPD home O2 2L PSH: Partial hysterectomy FH: unremarkable SH: Former smoker, stopped after she was intubated for ARDS years ago, Denies alcohol use, No drugs. PATIENT LIVES WITH HER DAUGHTER. Meds: See MAR ALLERGY; None PMD: Yassine Review of Systems - Constitutional Constitutional: Chills, Fever, Lethargy. absent: Night Sweats - EENT Eyes: absent: Floaters, Photophobia Ears: absent: Ear Pain Nose/Mouth/Throat: absent: Sinus Pain - Cardiovascular Cardiovascular: Chest Pain (PLEURITIC CHEST PAIN ON COUGHING), Dyspnea. absent : Leg Edema - Respiratory Respiratory: Cough, Chest Congestion, Pain with Coughing. absent: Hemoptysis - Gastrointestinal Gastrointestinal: absent: Abdominal Pain, Diarrhea, Nausea, Vomiting - Genitourinary Genitourinary: absent: Dysuria, Freq UTI - Menstruation Menstruation: Post Menopausal - Neurological Neurological: Headaches - Hematologic/Lymphatic Hematologic: As Per HPI Past Patient History - Infectious Disease Hx of Infectious Diseases: None - Past Medical History & Family History Past Medical History?: Yes - Past Social History Smoking Status: Former Smoker - CARDIAC Hx Hypertension: Yes - PULMONARY Hx Chronic Obstructive Pulmonary Disease (COPD): Yes - NEUROLOGICAL Hx Neurological Disorder: No - HEENT Hx HEENT Problems: No - RENAL Hx Chronic Kidney Disease: No - ENDOCRINE/METABOLIC Hx Endocrine Disorders: No - HEMATOLOGICAL/ONCOLOGICAL Hx Blood Disorders: No - INTEGUMENTARY Hx Dermatological Problems: No - MUSCULOSKELETAL/RHEUMATOLOGICAL Hx Falls: No - GASTROINTESTINAL Hx Gastrointestinal Disorders: No - GENITOURINARY/GYNECOLOGICAL Hx Genitourinary Disorders: No - PSYCHIATRIC Hx Anxiety: Yes Hx Substance Use: No - SURGICAL HISTORY Hx Surgeries: Yes Hx Hysterectomy: Yes Other/Comment: Ovarian tumor removal - ANESTHESIA Hx Anesthesia: Yes Hx Anesthesia Reactions: No Hx Malignant Hyperthermia: No Meds Allergies/Adverse Reactions: Allergies Allergy/AdvReac Type Severity Reaction Status Date / Time No Known Allergies Allergy Verified 08/30/17 19:23 - Medications Medications: Current Medications Albuterol/Ipratropium (Duoneb 3 Mg/0.5 Mg (3 Ml) Ud) 3 ml INH RQ6 [facility] Last Admin: 09/21/17 07:28 Dose: Not Given Alprazolam (Xanax) 0.5 mg PO DAILY [facility] Last Admin: 09/21/17 12:33 Dose: 0.5 mg Escitalopram Oxalate (Lexapro) 20 mg PO DAILY [facility] Last Admin: 09/21/17 12:33 Dose: 20 mg Heparin Sodium (Porcine) (Heparin) 5,000 units SC Q12H [facility] Piperacillin Sod/Tazobactam Sod (Zosyn 3.375 Gm Iv Premix) 3.375 gm in 50 mls @ 200 mls/hr IVPB STAT [facility] Piperacillin Sod/Tazobactam Sod (Zosyn 3.375 Gm Iv Premix) 3.375 gm in 50 mls @ 100 mls/hr IVPB Q6H [facility] Last Admin: 09/21/17 05:20 Dose: 100 mls/hr Methylprednisolone (Solu-Medrol) 40 mg IV Q8 [facility] Last Admin: 09/21/17 13:05 Dose: 40 mg Oseltamivir Phosphate (Tamiflu Cap) 75 mg PO BID [facility] Stop: 09/25/17 23:25 Last Admin: 09/21/17 12:33 Dose: 75 mg Pantoprazole Sodium (Protonix Ec Tab) 40 mg PO DAILY [facility] Last Admin: 09/21/17 12:33 Dose: 40 mg Tiotropium [place] (Spiriva) 18 mcg INH RQ24 [facility] Last Admin: 09/21/17 07:28 Dose: Not Given Triamterene/HCTZ (Dyazide 25 Mg-37.5 Mg) 1 cap PO DAILY [facility] Last Admin: 09/21/17 12:32 Dose: 1 cap Physical Exam - Constitutional Appears: No Acute Distress - Head Exam Head Exam: NORMAL INSPECTION - Eye Exam Eye Exam: EOMI, PERRL - ENT Exam ENT Exam: Normal Oropharynx - Neck Exam Neck exam: Positive for: Normal Inspection - Respiratory Exam Respiratory Exam: Prolonged Expiratory Phase, Rhonchi (BILATERAL RHONCHI.) - Cardiovascular Exam Cardiovascular Exam: Irregular Rhythm, +S1, +S2 - GI/Abdominal Exam GI & Abdominal Exam: Normal Bowel Sounds, Soft. absent: Organomegaly - Extremities Exam Extremities exam: Positive for: pedal pulses present. Negative for: calf tenderness, pedal edema - Neurological Exam Neurological exam: Alert, CN II-XII Intact, Oriented x3, Reflexes Normal - Psychiatric Exam Psychiatric exam: Normal Mood - Skin Skin Exam: Normal Color, Warm Results - Vital Signs Recent Vital Signs: Last Vital Signs Temp 97.5 F L 09/21/17 08:43 Pulse 64 09/21/17 08:43 Resp 18 09/21/17 08:43 BP 156/98 H 09/21/17 08:43 Pulse Ox 99 09/21/17 08:43 - Labs Result Diagrams: 09/20/17 17:05 09/20/17 17:05 Labs: Laboratory Results - last 24 hr 09/20/17 09/20/17 09/20/17 17:05 17:05 17:05 WBC 7.0 RBC 5.01 Hgb 9.5 L Hct 31.3 L MCV 62.3 L MCH 18.9 L MCHC 30.3 L RDW 16.4 H Plt Count 95 L D MPV 10.8 Neut % (Auto) 77.3 H Lymph % (Auto) 12.3 L [place] % (Auto) 9.3 Eos % (Auto) 0.5 Baso % (Auto) 0.6 Neut # 5.4 Lymph # 0.9 L [place] # 0.6 Eos # 0.0 Baso # 0.0 Differential Comment PT 10.9 INR 1.0 APTT 31 Puncture Site pCO2 pO2 HCO3 ABG pH ABG Total CO2 ABG O2 Saturation ABG Base Excess ABG Hemoglobin ABG Carboxyhemoglobin POC ABG HHb (Measured) ABG Methemoglobin Ralph Test Hgb O2 Saturation Liter Flow Sodium 132 Potassium 4.0 Chloride 85 L Carbon Dioxide 41 H* Anion Gap 10 BUN 16 Creatinine 0.9 Est GFR ( Amer) > 60 Est GFR (Non-Af Amer) > 60 Random Glucose 92 Calcium 7.9 L Total Bilirubin 0.4 AST 35 ALT 29 Alkaline Phosphatase 51 Troponin I < 0.0120 NT-Pro-B Natriuret Pep 143 Total Protein 6.4 Albumin 3.7 Globulin 2.6 Albumin/Globulin Ratio 1.4 Influenza Typ A,B (EIA) Grp A Beta Strep Ag 09/20/17 09/20/17 17:37 19:00 WBC RBC Hgb Hct MCV MCH MCHC RDW Plt Count MPV Neut % (Auto) Lymph % (Auto) [place] % (Auto) Eos % (Auto) Baso % (Auto) Neut # Lymph # [place] # Eos # Baso # Differential Comment PT INR APTT Puncture Site Lra pCO2 55 H pO2 109 H HCO3 35.6 H ABG pH 7.46 H ABG Total CO2 40.8 H ABG O2 Saturation 99.5 H ABG Base Excess 13.6 H ABG Hemoglobin 8.8 L ABG Carboxyhemoglobin 1.3 POC ABG HHb (Measured) 0.5 ABG Methemoglobin 0.8 Ralph Test Yes Hgb O2 Saturation 97.4 Liter Flow 3.0 Sodium Potassium Chloride Carbon Dioxide Anion Gap BUN Creatinine Est GFR ( Amer) Est GFR (Non-Af Amer) Random Glucose Calcium Total Bilirubin AST ALT Alkaline Phosphatase Troponin I NT-Pro-B Natriuret Pep Total Protein Albumin Globulin Albumin/Globulin Ratio Influenza Typ A,B (EIA) Pos for influenza b H Grp A Beta Strep Ag Negative - Imaging and Cardiology Chest x-ray Status: Report reviewed by me Assessment & Plan (1) Influenza B Assessment and Plan: PANCULTURES. ESR, CRP. SPUTUM gRAM STAIN AND CULTURE. MRSA SCREEN. D/C IV ZOSYN START IV MEROPENEM 500 MG EVERY 8 HOURLY09/21/17 ADD zITHROMAX 500 MG ONCE A DAY DAILY FOR STAPH SUPERINFECTION.09/21/17 CONTINUE TAMIFLU 75 MG BY MOUTH TWICE A DAY.09/20/17. DROPLET PRECAUTIONS. CONSIDER CT CHEST WITH iv CONTRAST R/O BRONCHIECTASIS. PULMONARY TOILET PATIENT ON STEROIDS PER PULMONARY. Status: Acute (2) COPD exacerbation Assessment and Plan: PULMONARY TOILET. pATIENT STARTED ON ALBUTEROL IPRATROPIUM 3 CC inh r EVERY 6 sPIRIVA 18 G inh r EVERY 24 HOURS. Status: Acute Priority: High (3) Anxiety Assessment and Plan: PER pmd Status: Acute Priority: High
--- NOTE | 2017-09-21 14:51 | CARD ---
APPROVED REPORT EKG Measurement Heart [id number] <Conclusion> Normal sinus rhythm Normal ECG
--- NOTE | 2017-09-21 15:04 | CP.PCM.CON ---
History of Present Illness - History of Present Illness History of Present Illness: Patient is a 67 year old female with history of HTN, anxiety, COPD - on 2L of O2 at home, previously intubated once in 2008, who was admitted on 09/20/17 for 1 week history of shortness of breath, wheezing, fever, and productive cough, that was not improved on her home medication. She reportedly had similar symptoms 3-4 weeks ago when she was admitted for COPD exacerbation. Initial CXR on admission revealed bibasilar atelectasis. Today, she complains of chest heaviness and tightness, stating that it is hard for her to take a deep breath. She states she feels short of breath, worsened with movement. She admits she feels warm all over her body when she can't catch her breath. States she has a wet cough but admits she has difficulty expectorating due to chest pain with coughing. Requesting cough medication at this time. States she feels warm, and admits she had a slight headache. Denies nausea, vomiting. She states she had the flu and pneumonia vaccine this year. PMH: HTN, anxiety, COPD PSH: partial hysterectomy Social hx: former smoker; smoked from age 12 to 58. Quit in 2008 after she was intubated. Denies EtOH use. Hx of recreational drug use (marijuana) in 1960s- 1970s. Home Meds: Triamterene/HCTZ, Tiotropium/Olodaterol, Protonix, Methylprednisone, Flovent, Lexapro, Pulmicort, Xanax, Ventolin, Albuterol Allergies: NKDA PMD: Dr. Metzger Physical exam: Vitals Temp 97.5 HR 64 BP 156/98 RR 18 Pulse ox 99% RA Respiratory: Decreased breath sounds with expiratory wheezing Assessment and plan 67 year old female with history of HTN, anxiety, COPD - on 2L of O2 at home, previously intubated once in 2008, who was admitted on 09/20/17 for 1 week history of shortness of breath, wheezing, fever, and productive cough, that was not improved on her home medication. Pulmonology consulted for evaluation of dyspnea, given history of COPD. Acute COPD exacerbation O2 sat 99% on RA Respiratory infection, influenza - Positive for Influenza B - Tamiflu 75mg PO BID Afebrile, Tmax 98.8 Group A beta step negative Blood culture pending Throat culture pending. CXR 09/20/17: bibasilar atelectasis. 09/20/17 ABG pH 7.46 pCO2 55 pO2 109 HCO3 35.6 Continue meds: Albuterol/Ipratropium 3cc INH R Q6 Methylprednisone 40mg IV Q 8 Tamiflu 75mg PO BID Zosyn 3.375g IV Spiriva 18mcg INH R Q24 [facility] Past Patient History - Infectious Disease Hx of Infectious Diseases: None - Past Medical History & Family History Past Medical History?: Yes - Past Social History Smoking Status: Former Smoker - CARDIAC Hx Hypertension: Yes - PULMONARY Hx Chronic Obstructive Pulmonary Disease (COPD): Yes - NEUROLOGICAL Hx Neurological Disorder: No - HEENT Hx HEENT Problems: No - RENAL Hx Chronic Kidney Disease: No - ENDOCRINE/METABOLIC Hx Endocrine Disorders: No - HEMATOLOGICAL/ONCOLOGICAL Hx Blood Disorders: No - INTEGUMENTARY Hx Dermatological Problems: No - MUSCULOSKELETAL/RHEUMATOLOGICAL Hx Falls: No - GASTROINTESTINAL Hx Gastrointestinal Disorders: No - GENITOURINARY/GYNECOLOGICAL Hx Genitourinary Disorders: No - PSYCHIATRIC Hx Anxiety: Yes Hx Substance Use: No - SURGICAL HISTORY Hx Surgeries: Yes Hx Hysterectomy: Yes Other/Comment: Ovarian tumor removal - ANESTHESIA Hx Anesthesia: Yes Hx Anesthesia Reactions: No Hx Malignant Hyperthermia: No Meds Allergies/Adverse Reactions: Allergies Allergy/AdvReac Type Severity Reaction Status Date / Time No Known Allergies Allergy Verified 08/30/17 19:23 - Medications Medications: Current Medications Albuterol/Ipratropium (Duoneb 3 Mg/0.5 Mg (3 Ml) Ud) 3 ml INH RQ6 [facility] Last Admin: 09/21/17 13:25 Dose: 3 ml Alprazolam (Xanax) 0.5 mg PO DAILY [facility] Last Admin: 09/21/17 12:33 Dose: 0.5 mg Escitalopram Oxalate (Lexapro) 20 mg PO DAILY [facility] Last Admin: 09/21/17 12:33 Dose: 20 mg Heparin Sodium (Porcine) (Heparin) 5,000 units SC Q12H [facility] Piperacillin Sod/Tazobactam Sod (Zosyn 3.375 Gm Iv Premix) 3.375 gm in 50 mls @ 200 mls/hr IVPB STAT [facility] Piperacillin Sod/Tazobactam Sod (Zosyn 3.375 Gm Iv Premix) 3.375 gm in 50 mls @ 100 mls/hr IVPB Q6H [facility] Last Admin: 09/21/17 12:00 Dose: 100 mls/hr Methylprednisolone (Solu-Medrol) 40 mg IV Q8 [facility] Last Admin: 09/21/17 13:05 Dose: 40 mg Oseltamivir Phosphate (Tamiflu Cap) 75 mg PO BID [facility] Stop: 09/25/17 23:25 Last Admin: 09/21/17 12:33 Dose: 75 mg Pantoprazole Sodium (Protonix Ec Tab) 40 mg PO DAILY [facility] Last Admin: 09/21/17 12:33 Dose: 40 mg Tiotropium [place] (Spiriva) 18 mcg INH RQ24 [facility] Last Admin: 09/21/17 07:28 Dose: Not Given Triamterene/HCTZ (Dyazide 25 Mg-37.5 Mg) 1 cap PO DAILY [facility] Last Admin: 09/21/17 12:32 Dose: 1 cap Results - Vital Signs Recent Vital Signs: Last Vital Signs Temp 97.5 F L 09/21/17 08:43 Pulse 64 09/21/17 08:43 Resp 18 09/21/17 08:43 BP 156/98 H 09/21/17 08:43 Pulse Ox 99 09/21/17 08:43 - Labs Result Diagrams: 09/20/17 17:05 09/20/17 17:05 Labs: Laboratory Results - last 24 hr 09/20/17 09/20/17 09/20/17 17:05 17:05 17:05 WBC 7.0 RBC 5.01 Hgb 9.5 L Hct 31.3 L MCV 62.3 L MCH 18.9 L MCHC 30.3 L RDW 16.4 H Plt Count 95 L D MPV 10.8 Neut % (Auto) 77.3 H Lymph % (Auto) 12.3 L [place] % (Auto) 9.3 Eos % (Auto) 0.5 Baso % (Auto) 0.6 Neut # 5.4 Lymph # 0.9 L [place] # 0.6 Eos # 0.0 Baso # 0.0 Differential Comment PT 10.9 INR 1.0 APTT 31 Puncture Site pCO2 pO2 HCO3 ABG pH ABG Total CO2 ABG O2 Saturation ABG Base Excess ABG Hemoglobin ABG Carboxyhemoglobin POC ABG HHb (Measured) ABG Methemoglobin Ralph Test Hgb O2 Saturation Liter Flow Sodium 132 Potassium 4.0 Chloride 85 L Carbon Dioxide 41 H* Anion Gap 10 BUN 16 Creatinine 0.9 Est GFR ( Amer) > 60 Est GFR (Non-Af Amer) > 60 Random Glucose 92 Calcium 7.9 L Total Bilirubin 0.4 AST 35 ALT 29 Alkaline Phosphatase 51 Troponin I < 0.0120 NT-Pro-B Natriuret Pep 143 Total Protein 6.4 Albumin 3.7 Globulin 2.6 Albumin/Globulin Ratio 1.4 Influenza Typ A,B (EIA) Grp A Beta Strep Ag 09/20/17 09/20/17 17:37 19:00 WBC RBC Hgb Hct MCV MCH MCHC RDW Plt Count MPV Neut % (Auto) Lymph % (Auto) [place] % (Auto) Eos % (Auto) Baso % (Auto) Neut # Lymph # [place] # Eos # Baso # Differential Comment PT INR APTT Puncture Site Lra pCO2 55 H pO2 109 H HCO3 35.6 H ABG pH 7.46 H ABG Total CO2 40.8 H ABG O2 Saturation 99.5 H ABG Base Excess 13.6 H ABG Hemoglobin 8.8 L ABG Carboxyhemoglobin 1.3 POC ABG HHb (Measured) 0.5 ABG Methemoglobin 0.8 Ralph Test Yes Hgb O2 Saturation 97.4 Liter Flow 3.0 Sodium Potassium Chloride Carbon Dioxide Anion Gap BUN Creatinine Est GFR ( Amer) Est GFR (Non-Af Amer) Random Glucose Calcium Total Bilirubin AST ALT Alkaline Phosphatase Troponin I NT-Pro-B Natriuret Pep Total Protein Albumin Globulin Albumin/Globulin Ratio Influenza Typ A,B (EIA) Pos for influenza b H Grp A Beta Strep Ag Negative
[2017-09-21] MEDS ORDERED: Azithromycin 500mg/250ML NS 500 MG/250 ML BAG IVPB SCH (21:15)
[2017-09-21] MEDS: guaiFENesin DM 100 mg-10 mg/5 ml UD PO PRN (22:45)
[2017-09-21] MEDS: Meropenem 500 MG in Sodium Chloride 0.9% 100 ML IVPB SCH (22:46)
[2017-09-21] MEDS: Azithromycin 500mg/250ML NS 500 MG/250 ML BAG IVPB SCH (23:56)
[2017-09-22] MEDS: Albuterol-Ipratrop 3 mg / 0.5 (3 ml) UD INH SCH ×4 (04:00→19:41)
--- NOTE | 2017-09-22 04:49 | HP ---
HISTORY OF PRESENT ILLNESS: This is a 67-year-old female with history of COPD, on home oxygen, presented to the Emergency Room with symptoms of shortness of breath as well as cough and congestion that has been progressive over the last few days prior to this admission. The patient was admitted 10 days earlier for a night and she was discharged home on tapering steroids as well as to continue her bronchodilators. The patient was evaluated in the Emergency Room where she was found to have also influenza B positive. Patient was started on Tamiflu as well as continued on IV antibiotics and steroids. The patient had Pulmonary and ID consultation done. Other review of system is negative. ALLERGIES: NO KNOWN ALLERGY. MEDICATIONS: As per MAR. SOCIAL HISTORY: Ex-smoker. No EtOH or substance abuse. FAMILY HISTORY: Noncontributory. PAST MEDICAL HISTORY: COPD, on home oxygen; hypertension. PHYSICAL EXAMINATION: GENERAL: Patient is in bed, in mild distress. VITAL SIGNS: Respiratory rate 24, blood pressure is 165/88, temperature 97.6, pulse is 89. HEENT: Pupils equal, reactive to light. Normal appearing mucosa of the conjunctivae, oropharynx and nasal membrane mucosa. NECK: Supple. No JVD. No carotid bruit. No lymph node. No thyromegaly. CHEST AND LUNGS: Bilateral symmetrical expansion. Good air exchange. Patient has scattered rhonchi all over lung gonsalez with coarse rales that change with cough. CARDIOVASCULAR SYSTEM: PMI not localized. S1, S2. No additional sounds. ABDOMEN: Normoactive bowel sounds. No tenderness. No organomegaly. No masses. EXTREMITIES: No cyanosis, no clubbing, no edema. CENTRAL NERVOUS SYSTEM: Alert, awake, oriented x3. No neurological deficit could be appreciated. ASSESSMENT: 1. Exacerbation of chronic obstructive pulmonary disease. 2. Influenza B positive. 3. Pneumonia. 4. Hypertension. PLAN: Continue the current antiviral as well as antibiotics started, follow recommendations of both Pulmonary and ID consultants. Resume patient's home medications. Frankie Metzger MD
[2017-09-22] MEDS: MethylPREDNISolone 40 mg Vial IV SCH ×3 (06:59→21:35)
[2017-09-22] MEDS: Meropenem 500 MG in Sodium Chloride 0.9% 100 ML IVPB SCH ×3 (06:59→21:35)
[2017-09-22] MEDS: Tiotropium 18 mcg Cap For Inhalation INH SCH (07:55)
[2017-09-22] MEDS: Potassium Chloride 20 mEq ER Tab PO SCH (11:45)
[2017-09-22] MEDS: hydroCHLOROthiazide-Triamterene 25 mg-37.5 mg Cap UD PO SCH (11:56)
[2017-09-22] MEDS: Pantoprazole 40 mg EC Tab PO SCH (11:56)
--- NOTE | 2017-09-22 13:22 | CP.PCM.PN ---
Subjective - Date & Time of Evaluation Date of Evaluation: 09/22/17 Time of Evaluation: 13:22 - Subjective Subjective: CHIEF COMPLAINTS TODAY : afebrile, Still congested. On nasal cannula oxygen 2 L. Pulse ox 98%. Productive cough. ROS. HEENT : N. Resp : +VE COUGH, WHEEZING , NO pleuritic CP ,or hemoptysis Cardio : No anginal CP, PND, orthopnea, palpitation GI : No abd.pain, n/v ,diarrhea or GI bleeding . CHILDCARE AIDE : No headache, vertigo, focal deficit. Musculoskel : No joint swelling , Derm : No rash Psych : Normal affect. Ext : No swelling ,calf pain PE. Pt. is alert awake in no distress. V.S As noted in the chart Head ,ear nose,throat and eyes : Normal. Neck : Supple with normal carotids. Lungs: BILATERAL EXPIRATORY WHEEZE/RHONCHI. Heart : S1 & S2 IRREGULAR . No murmur. Abd : Soft non tender with normal bowel sounds. Neuro : Moves all ext. with no localized deficit. Ext : No edema with intact pulses.Non tender calves Derm : No rashes or decubitus ulcer. LABS/RADIOLOGY: REVIEWED Blood cultures negative to date .MRSA SCREEN NEGATIVE. Objective - Vital Signs/Intake and Output Vital Signs (last 24 hours): Temp Pulse Resp BP Pulse Ox 97.3 F L 70 20 167/92 H 100 09/22/17 07:20 09/22/17 07:20 09/22/17 07:20 09/22/17 07:20 09/22/17 07:20 Intake and Output: 09/22/17 09/22/17 06:59 18:59 Intake Total 300 Balance 300 - Medications Medications: Current Medications Albuterol/Ipratropium (Duoneb 3 Mg/0.5 Mg (3 Ml) Ud) 3 ml INH RQ6 [facility] Last Admin: 09/22/17 07:54 Dose: 3 ml Alprazolam (Xanax) 0.5 mg PO HS [facility] Alprazolam (Xanax) 0.25 mg PO DAILY PRN PRN Reason: Anxiety Stop: 09/29/17 11:01 Last Admin: 09/22/17 11:44 Dose: 0.25 mg Escitalopram Oxalate (Lexapro) 20 mg PO DAILY [facility] Last Admin: 09/22/17 11:56 Dose: 20 mg Guaifenesin/Dextromethorphan (Robitussin Dm) 5 ml PO Q4H PRN PRN Reason: Cough Last Admin: 09/21/17 22:45 Dose: 5 ml Heparin Sodium (Porcine) (Heparin) 5,000 units SC Q12H [facility] Piperacillin Sod/Tazobactam Sod (Zosyn 3.375 Gm Iv Premix) 3.375 gm in 50 mls @ 200 mls/hr IVPB STAT [facility] Last Admin: 09/21/17 17:48 Dose: 200 mls/hr Meropenem 500 mg/ Sodium (Chloride) 100 mls @ 100 mls/hr IVPB Q8 [facility] Last Admin: 09/22/17 06:59 Dose: 100 mls/hr Azithromycin (Zithromax 500mg In Ns Addvantage) 500 mg in 250 mls @ 167 mls/hr IVPB Q24H [facility] Last Admin: 09/21/17 23:56 Dose: 167 mls/hr Methylprednisolone (Solu-Medrol) 40 mg IV Q8 [facility] Last Admin: 09/22/17 06:59 Dose: 40 mg Oseltamivir Phosphate (Tamiflu Cap) 75 mg PO BID [facility] Stop: 09/25/17 23:25 Last Admin: 09/22/17 11:45 Dose: 75 mg Pantoprazole Sodium (Protonix Ec Tab) 40 mg PO DAILY [facility] Last Admin: 09/22/17 11:56 Dose: 40 mg Potassium Chloride (K-Dur 20 Meq Er Tab) 20 meq PO DAILY [facility] Last Admin: 09/22/17 11:45 Dose: 20 meq Tiotropium [place] (Spiriva) 18 mcg INH RQ24 [facility] Last Admin: 09/22/17 07:55 Dose: Not Given Triamterene/HCTZ (Dyazide 25 Mg-37.5 Mg) 1 cap PO DAILY [facility] Last Admin: 09/22/17 11:56 Dose: 1 cap - Labs Labs: 09/20/17 17:05 09/20/17 17:05 PT 10.9 SECONDS (9.7-12.2) 09/20/17 17:05 INR 1.0 09/20/17 17:05 APTT 31 SECONDS (21-34) 09/20/17 17:05 Assessment and Plan (1) Influenza B Assessment & Plan: ON IV MEROPENEM 500 MG EVERY 8 HOURLY09/21/17 IV zITHROMAX 500 MG ONCE A DAY DAILY FOR STAPH SUPERINFECTION.09/21/17 CONTINUE TAMIFLU 75 MG BY MOUTH TWICE A DAY.09/20/17. DROPLET PRECAUTIONS. CONSIDER CT CHEST WITH iv CONTRAST R/O BRONCHIECTASIS. PULMONARY TOILET PATIENT ON STEROIDS PER PULMONARY. Status: Acute (2) COPD exacerbation Assessment & Plan: PER PULMONARY. Status: Acute (3) Anxiety Assessment & Plan: PATIENT ON lEXAPRO AND XANAX PER PMD. Status: Acute
--- NOTE | 2017-09-22 18:35 | CP.PCM.PN ---
Subjective - Date & Time of Evaluation Date of Evaluation: 09/22/17 Time of Evaluation: 15:00 - Subjective Subjective: patient seen and examined Still complaining of cough and shortness Breath Patient in isolation for influenza Afebrile Objective - Vital Signs/Intake and Output Vital Signs (last 24 hours): Temp Pulse Resp BP Pulse Ox 97.9 F 74 20 162/98 H 97 09/22/17 15:00 09/22/17 15:00 09/22/17 15:00 09/22/17 15:00 09/22/17 15:00 Intake and Output: 09/22/17 09/22/17 06:59 18:59 Intake Total 300 Balance 300 - Medications Medications: Current Medications Albuterol/Ipratropium (Duoneb 3 Mg/0.5 Mg (3 Ml) Ud) 3 ml INH RQ6 [facility] Last Admin: 09/22/17 13:19 Dose: 3 ml Alprazolam (Xanax) 0.5 mg PO HS [facility] Alprazolam (Xanax) 0.25 mg PO DAILY PRN PRN Reason: Anxiety Stop: 09/29/17 11:01 Last Admin: 09/22/17 11:44 Dose: 0.25 mg Escitalopram Oxalate (Lexapro) 20 mg PO DAILY [facility] Last Admin: 09/22/17 11:56 Dose: 20 mg Guaifenesin/Dextromethorphan (Robitussin Dm) 5 ml PO Q4H PRN PRN Reason: Cough Last Admin: 09/21/17 22:45 Dose: 5 ml Heparin Sodium (Porcine) (Heparin) 5,000 units SC Q12H [facility] Piperacillin Sod/Tazobactam Sod (Zosyn 3.375 Gm Iv Premix) 3.375 gm in 50 mls @ 200 mls/hr IVPB STAT [facility] Last Admin: 09/21/17 17:48 Dose: 200 mls/hr Meropenem 500 mg/ Sodium (Chloride) 100 mls @ 100 mls/hr IVPB Q8 [facility] Last Admin: 09/22/17 14:42 Dose: 100 mls/hr Azithromycin (Zithromax 500mg In Ns Addvantage) 500 mg in 250 mls @ 167 mls/hr IVPB Q24H [facility] Last Admin: 09/21/17 23:56 Dose: 167 mls/hr Methylprednisolone (Solu-Medrol) 40 mg IV Q8 [facility] Last Admin: 09/22/17 14:42 Dose: 40 mg Oseltamivir Phosphate (Tamiflu Cap) 75 mg PO BID [facility] Stop: 09/25/17 23:25 Last Admin: 09/22/17 17:35 Dose: 75 mg Pantoprazole Sodium (Protonix Ec Tab) 40 mg PO DAILY [facility] Last Admin: 09/22/17 11:56 Dose: 40 mg Potassium Chloride (K-Dur 20 Meq Er Tab) 20 meq PO DAILY [facility] Last Admin: 09/22/17 11:45 Dose: 20 meq Tiotropium [place] (Spiriva) 18 mcg INH RQ24 [facility] Last Admin: 09/22/17 07:55 Dose: Not Given Triamterene/HCTZ (Dyazide 25 Mg-37.5 Mg) 1 cap PO DAILY [facility] Last Admin: 09/22/17 11:56 Dose: 1 cap - Labs Labs: 09/20/17 17:05 09/20/17 17:05 PT 10.9 SECONDS (9.7-12.2) 09/20/17 17:05 INR 1.0 09/20/17 17:05 APTT 31 SECONDS (21-34) 09/20/17 17:05 - Head Exam Head Exam: ATRAUMATIC, NORMOCEPHALIC - Eye Exam Eye Exam: Normal appearance - ENT Exam ENT Exam: Mucous Membranes Moist - Neck Exam Neck Exam: Normal Inspection - Respiratory Exam Respiratory Exam: Rhonchi, Wheezes - Cardiovascular Exam Cardiovascular Exam: REGULAR RHYTHM - GI/Abdominal Exam GI & Abdominal Exam: Soft, Normal Bowel Sounds - Extremities Exam Extremities Exam: Normal Inspection Assessment and Plan (1) Influenza B Assessment & Plan: Continue tamiflu On droplet precautions Continue nebulizer treatment IV steroids Antitussives Status: Acute (2) COPD exacerbation Status: Acute
[2017-09-22] MEDS: Azithromycin 500mg/250ML NS 500 MG/250 ML BAG IVPB SCH (22:50)
--- NOTE | 2017-09-23 00:16 | PN ---
DATE: 09/22/2017 SUBJECTIVE: Patient is seen today, 09/22/2017. She still has respiratory distress with wheezing. PHYSICAL EXAMINATION: VITAL SIGNS: Blood pressure is 162/98, temperature 97.9, respiratory rate 20 and pulse 74. HEENT: Pupils equal, reactive to light. Normal-appearing mucosa of the conjunctivae, oropharynx and nasal membrane mucosa. NECK: Supple. No JVD. No carotid bruit. No lymph node. No thyromegaly. CHEST AND LUNGS: Bilateral symmetrical expansion, scattered rhonchi all over lung gonsalez. CARDIOVASCULAR: PMI not localized. S1, S2. No additional sounds. ABDOMEN: Normoactive bowel sounds. No tenderness. No organomegaly. No masses. EXTREMITIES: No cyanosis, no clubbing, no edema. CENTRAL NERVOUS SYSTEM: Alert, awake, oriented x2. No neurological deficit could be appreciated. ASSESSMENT: 1. Exacerbation of chronic obstructive pulmonary disease. 2. Pneumonia. 3. Influenza B infection. 4. Hypertension. PLAN: Continue current medications and follow recommendations of coin machine mechanic and ID. Continue steroid and bronchodilators. Frankie Metzger MD
[2017-09-23] MEDS: Albuterol-Ipratrop 3 mg / 0.5 (3 ml) UD INH SCH ×4 (01:05→19:24)
[2017-09-23] MEDS ORDERED: Albuterol-Ipratrop 3 mg / 0.5 (3 ml) UD INH ONE (04:07)
[2017-09-23] MEDS ORDERED: Acetylcysteine 20% Inhal Soln (4ml) INH ONE (04:07)
[2017-09-23] MEDS: Meropenem 500 MG in Sodium Chloride 0.9% 100 ML IVPB SCH ×3 (05:04→21:17)
[2017-09-23] MEDS: MethylPREDNISolone 40 mg Vial IV SCH ×3 (05:04→21:16)
[2017-09-23] MEDS: Tiotropium 18 mcg Cap For Inhalation INH SCH (08:29)
[2017-09-23] MEDS: hydroCHLOROthiazide-Triamterene 25 mg-37.5 mg Cap UD PO SCH (09:37)
[2017-09-23] MEDS: Pantoprazole 40 mg EC Tab PO SCH (09:37)
[2017-09-23] MEDS: Potassium Chloride 20 mEq ER Tab PO SCH (09:37)
[2017-09-23 11:27] LABS: BASO % 0.2 % (0.0-2.0); HEMOGLOBIN 8.9 g/dL (11.0-16.0); LYMPH # 0.7 K/uL (1.0-4.3); LYMPH % 7.5 % (20.0-40.0); MEAN CELL VOLUME 62.9 fL (81.0-99.0); MEAN CORPUSCULAR HEMOGLOBIN 19.3 pg (27.0-31.0); MEAN CORPUSCULAR HGB CONC 30.7 g/dL (33.0-37.0); MEAN PLATELET VOLUME 11.9 fL (7.2-11.7); MONO # 0.3 K/uL (0.0-0.8); MONO % 3.5 % (0.0-10.0); NEUT # 8.5 K/uL (1.8-7.0); NEUT % 88.8 % (50.0-75.0); PLATELET COUNT 154 K/uL (130-400); RBC 4.63 Mil/uL (3.80-5.20); RED CELL DISTRIBUTION WIDTH 16.7 % (11.5-14.5); WHITE BLOOD COUNT 9.6 K/uL (4.8-10.8)
[2017-09-23 11:49] LABS: ALB/GLOB RATIO 1.4 (1.0-2.1); ALBUMIN 3.5 g/dL (3.5-5.0); ALT/SGPT 24 U/L (9-52); AST/SGOT 21 U/L (14-36); BLOOD UREA NITROGEN 29 mg/dL (7-17); CALCIUM 8.8 mg/dl (8.6-10.4); GFR AFRICAN-AMERICAN > 60; GFR NON-AFRICAN AMERICAN > 60; MAGNESIUM 2.1 mg/dL (1.6-2.3)
[2017-09-23 12:02] LABS: BANDS 4 % (0-2); LYMPHOCYTE 2 % (20-40); MONOCYTE 1 % (0-10); NEUTROPHIL 93 % (50-75); PLATELET ESTIMATE NORMAL (NORMAL); TOTAL CELLS COUNTED 100
[2017-09-23 12:03] LABS: ANISOCYTOSIS SLIGHT; HYPOCHROMIC MODERATE; MICROCYTOSIS MODERATE; OVALOCYTES SLIGHT; POIKILOCYTOSIS SLIGHT
[2017-09-23 12:04] LABS: LARGE PLATELETS PRESENT
--- NOTE | 2017-09-23 14:20 | CP.PCM.PN ---
Subjective - Date & Time of Evaluation Date of Evaluation: 09/23/17 Time of Evaluation: 14:20 - Subjective Subjective: CHIEF COMPLAINTS TODAY : afebrile, Still congested. On nasal cannula oxygen 2 L. Pulse ox 98%. Productive cough. ROS. HEENT : N. Resp : +VE COUGH, WHEEZING , NO pleuritic CP ,or hemoptysis Cardio : No anginal CP, PND, orthopnea, palpitation GI : No abd.pain, n/v ,diarrhea or GI bleeding . PUMP SERVICE SUPERVISOR : No headache, vertigo, focal deficit. Musculoskel : No joint swelling , Derm : No rash Psych : Normal affect. Ext : No swelling ,calf pain PE. Pt. is alert awake in no distress. V.S As noted in the chart Head ,ear nose,throat and eyes : Normal. Neck : Supple with normal carotids. Lungs: BILATERAL EXPIRATORY WHEEZE/RHONCHI. Heart : S1 & S2 IRREGULAR . No murmur. Abd : Soft non tender with normal bowel sounds. Neuro : Moves all ext. with no localized deficit. Ext : No edema with intact pulses.Non tender calves Derm : No rashes or decubitus ulcer. LABS/RADIOLOGY: REVIEWED wbc 9.6, H/H 8.9/29.1 PLATELETS 154 IMPROVING cREATININE 0.9/ 29-INCREASING Blood cultures negative to date .MRSA SCREEN NEGATIVE. Objective - Vital Signs/Intake and Output Vital Signs (last 24 hours): Temp Pulse Resp BP Pulse Ox 97 F L 69 18 152/89 H 99 09/23/17 08:08 09/23/17 08:08 09/23/17 08:08 09/23/17 08:08 09/23/17 08:08 Intake and Output: 09/23/17 09/23/17 06:59 18:59 Intake Total 950 Balance 950 - Medications Medications: Current Medications Albuterol/Ipratropium (Duoneb 3 Mg/0.5 Mg (3 Ml) Ud) 3 ml INH RQ6 [facility] Last Admin: 09/23/17 13:49 Dose: 3 ml Alprazolam (Xanax) 0.5 mg PO HS [facility] Last Admin: 09/22/17 21:36 Dose: 0.5 mg Alprazolam (Xanax) 0.25 mg PO DAILY PRN PRN Reason: Anxiety Stop: 09/29/17 11:01 Last Admin: 09/22/17 11:44 Dose: 0.25 mg Escitalopram Oxalate (Lexapro) 20 mg PO DAILY [facility] Last Admin: 09/23/17 09:37 Dose: 20 mg Guaifenesin/Dextromethorphan (Robitussin Dm) 5 ml PO Q4H PRN PRN Reason: Cough Last Admin: 09/21/17 22:45 Dose: 5 ml Heparin Sodium (Porcine) (Heparin) 5,000 units SC Q12H [facility] Piperacillin Sod/Tazobactam Sod (Zosyn 3.375 Gm Iv Premix) 3.375 gm in 50 mls @ 200 mls/hr IVPB STAT [facility] Last Admin: 09/21/17 17:48 Dose: 200 mls/hr Meropenem 500 mg/ Sodium (Chloride) 100 mls @ 100 mls/hr IVPB Q8 [facility] Last Admin: 09/23/17 13:53 Dose: 100 mls/hr Azithromycin (Zithromax 500mg In Ns Addvantage) 500 mg in 250 mls @ 167 mls/hr IVPB Q24H [facility] Last Admin: 09/22/17 22:50 Dose: 167 mls/hr Methylprednisolone (Solu-Medrol) 40 mg IV Q8 [facility] Last Admin: 09/23/17 13:54 Dose: 40 mg Oseltamivir Phosphate (Tamiflu Cap) 75 mg PO BID [facility] Stop: 09/25/17 23:25 Last Admin: 09/23/17 09:37 Dose: 75 mg Pantoprazole Sodium (Protonix Ec Tab) 40 mg PO DAILY [facility] Last Admin: 09/23/17 09:37 Dose: 40 mg Potassium Chloride (K-Dur 20 Meq Er Tab) 20 meq PO DAILY [facility] Last Admin: 09/23/17 09:37 Dose: 20 meq Tiotropium [place] (Spiriva) 18 mcg INH RQ24 [facility] Last Admin: 09/23/17 08:29 Dose: Not Given Triamterene/HCTZ (Dyazide 25 Mg-37.5 Mg) 1 cap PO DAILY [facility] Last Admin: 09/23/17 09:37 Dose: 1 cap - Labs Labs: 09/23/17 11:19 09/23/17 11:19 PT 10.9 SECONDS (9.7-12.2) 09/20/17 17:05 INR 1.0 09/20/17 17:05 APTT 31 SECONDS (21-34) 09/20/17 17:05 Assessment and Plan (1) Influenza B Assessment & Plan: Assessment & Plan: ON IV MEROPENEM 500 MG EVERY 8 HOURLY09/21/17 IV zITHROMAX 500 MG ONCE A DAY DAILY FOR STAPH SUPERINFECTION.09/21/17 CONTINUE TAMIFLU 75 MG BY MOUTH TWICE A DAY.09/20/17. DROPLET PRECAUTIONS. PULMONARY TOILET PATIENT ON STEROIDS PER PULMONARY. Status: Acute Status: Acute (2) COPD exacerbation Status: Acute (3) Anxiety Assessment & Plan: PATIENT MORE COMFORTABLE TODAY. Status: Acute
--- NOTE | 2017-09-23 22:20 | PN ---
DATE: 09/23/2017 SUBJECTIVE: The patient is seen today, 09/23/2017. She is in mild pulmonary distress with wheezing. PHYSICAL EXAMINATION: VITAL SIGNS: Blood pressure is 150/86, temperature 97.4, respiratory rate 20, and pulse 81. HEENT: Pupils equal, reactive to light. Normal appearing mucosa of the conjunctivae, oropharynx, and nasal membrane mucosa. NECK: Supple. No JVD. No carotid bruit. No lymph node. No thyromegaly. CHEST AND LUNGS: Bilateral symmetrical expansion. Good air exchange. No rales. No rhonchi. CARDIOVASCULAR SYSTEM: PMI not localized. S1 and S2. No additional sounds. ABDOMEN: Normoactive bowel sounds. No tenderness. No organomegaly. No masses. EXTREMITIES: No cyanosis. No clubbing. No edema. CENTRAL NERVOUS SYSTEM: Alert, awake, oriented x2. No neurological deficits could be appreciated. ASSESSMENT: 1. Exacerbation of chronic obstructive pulmonary disease. 2. Influenza B virus infection. 3. Hypertension. PLAN: Continue current medications and we will add Lasix 20 mg IV push and we will check echocardiogram. Follow recommendations of ID and urban renewal manager. Frankie Metzger MD
[2017-09-24] MEDS: Azithromycin 500mg/250ML NS 500 MG/250 ML BAG IVPB SCH ×2 (00:01→22:47)
[2017-09-24] MEDS: Albuterol-Ipratrop 3 mg / 0.5 (3 ml) UD INH SCH ×4 (01:40→20:08)
[2017-09-24] MEDS: Meropenem 500 MG in Sodium Chloride 0.9% 100 ML IVPB SCH ×3 (06:43→21:39)
[2017-09-24] MEDS: MethylPREDNISolone 40 mg Vial IV SCH ×3 (06:44→21:37)
[2017-09-24] MEDS: Tiotropium 18 mcg Cap For Inhalation INH SCH (08:30)
[2017-09-24] MEDS: Pantoprazole 40 mg EC Tab PO SCH (10:15)
[2017-09-24] MEDS: hydroCHLOROthiazide-Triamterene 25 mg-37.5 mg Cap UD PO SCH (10:16)
[2017-09-24] MEDS: guaiFENesin DM 100 mg-10 mg/5 ml UD PO PRN (10:24)
--- NOTE | 2017-09-24 14:27 | CP.PCM.PN ---
Subjective - Date & Time of Evaluation Date of Evaluation: 09/24/17 Time of Evaluation: 14:27 - Subjective Subjective: CHIEF COMPLAINTS TODAY : afebrile, Still WHEEZING. +VE cough. ROS. HEENT : N. Resp : +VE COUGH, WHEEZING , NO pleuritic CP ,or hemoptysis Cardio : No anginal CP, PND, orthopnea, palpitation GI : No abd.pain, n/v ,diarrhea or GI bleeding . BUSINESS SYSTEMS ADVISOR : No headache, vertigo, focal deficit. Musculoskel : No joint swelling , Derm : No rash Psych : Normal affect. Ext : No swelling ,calf pain PE. Pt. is alert awake in no distress. V.S As noted in the chart Head ,ear nose,throat and eyes : Normal. Neck : Supple with normal carotids. Lungs: BILATERAL EXPIRATORY WHEEZE/RHONCHI. Heart : S1 & S2 IRREGULAR . No murmur. Abd : Soft non tender with normal bowel sounds. Neuro : Moves all ext. with no localized deficit. Ext : No edema with intact pulses.Non tender calves Derm : No rashes or decubitus ulcer. LABS/RADIOLOGY: REVIEWED Blood cultures negative to date .MRSA SCREEN NEGATIVE. Objective - Vital Signs/Intake and Output Vital Signs (last 24 hours): Temp Pulse Resp BP Pulse Ox 97.4 F L 62 20 146/82 99 09/24/17 07:10 09/24/17 07:10 09/24/17 07:10 09/24/17 10:16 09/24/17 07:10 - Medications Medications: Current Medications Albuterol/Ipratropium (Duoneb 3 Mg/0.5 Mg (3 Ml) Ud) 3 ml INH RQ6 [facility] Last Admin: 09/24/17 14:03 Dose: 3 ml Alprazolam (Xanax) 0.5 mg PO HS [facility] Last Admin: 09/23/17 21:17 Dose: 0.5 mg Alprazolam (Xanax) 0.25 mg PO DAILY PRN PRN Reason: Anxiety Stop: 09/29/17 11:01 Last Admin: 09/23/17 17:40 Dose: 0.25 mg Escitalopram Oxalate (Lexapro) 20 mg PO DAILY [facility] Last Admin: 09/24/17 10:25 Dose: 20 mg Furosemide (Lasix) 20 mg IVP DAILY [facility] Last Admin: 09/24/17 10:16 Dose: 20 mg Guaifenesin/Dextromethorphan (Robitussin Dm) 5 ml PO Q4H PRN PRN Reason: Cough Last Admin: 09/24/17 10:24 Dose: 5 ml Heparin Sodium (Porcine) (Heparin) 5,000 units SC Q12H [facility] Piperacillin Sod/Tazobactam Sod (Zosyn 3.375 Gm Iv Premix) 3.375 gm in 50 mls @ 200 mls/hr IVPB STAT [facility] Last Admin: 09/21/17 17:48 Dose: 200 mls/hr Meropenem 500 mg/ Sodium (Chloride) 100 mls @ 100 mls/hr IVPB Q8 [facility] Last Admin: 09/24/17 13:40 Dose: 100 mls/hr Azithromycin (Zithromax 500mg In Ns Addvantage) 500 mg in 250 mls @ 167 mls/hr IVPB Q24H [facility] Last Admin: 09/24/17 00:01 Dose: 167 mls/hr Methylprednisolone (Solu-Medrol) 40 mg IV Q8 [facility] Last Admin: 09/24/17 13:37 Dose: 40 mg Oseltamivir Phosphate (Tamiflu Cap) 75 mg PO BID [facility] Stop: 09/25/17 23:25 Last Admin: 09/24/17 10:16 Dose: 75 mg Pantoprazole Sodium (Protonix Ec Tab) 40 mg PO DAILY [facility] Last Admin: 09/24/17 10:15 Dose: 40 mg Tiotropium [place] (Spiriva) 18 mcg INH RQ24 [facility] Last Admin: 09/24/17 08:30 Dose: Not Given Triamterene/HCTZ (Dyazide 25 Mg-37.5 Mg) 1 cap PO DAILY [facility] Last Admin: 09/24/17 10:16 Dose: 1 cap - Labs Labs: 09/23/17 11:19 09/23/17 11:19 PT 10.9 SECONDS (9.7-12.2) 09/20/17 17:05 INR 1.0 09/20/17 17:05 APTT 31 SECONDS (21-34) 09/20/17 17:05 Assessment and Plan (1) Influenza B Assessment & Plan: ON IV MEROPENEM 500 MG EVERY 8 HOURLY09/21/17 IV zITHROMAX 500 MG ONCE A DAY DAILY FOR STAPH SUPERINFECTION.09/21/17 CONTINUE TAMIFLU 75 MG BY MOUTH TWICE A DAY.09/20/17. DROPLET PRECAUTIONS. Status: Acute (2) COPD exacerbation Assessment & Plan: as per PULMONARY. Status: Acute (3) Anxiety Status: Acute
[2017-09-24] MEDS ORDERED: Albuterol-Ipratrop 3 mg / 0.5 (3 ml) UD INH STA (17:13)
--- NOTE | 2017-09-24 17:24 | CP.PCM.PN ---
Subjective - Date & Time of Evaluation Date of Evaluation: 09/24/17 Time of Evaluation: 15:35 - Subjective Subjective: patient seen and examined Still complaining of cough, shortness of breath and wheezing Afebrile No chest pain Objective - Vital Signs/Intake and Output Vital Signs (last 24 hours): Temp Pulse Resp BP Pulse Ox 97.3 F L 79 20 145/85 99 09/24/17 16:06 09/24/17 16:06 09/24/17 16:06 09/24/17 16:06 09/24/17 16:06 Intake and Output: 09/24/17 09/24/17 06:59 18:59 Intake Total 580 Balance 580 - Medications Medications: Current Medications Albuterol/Ipratropium (Duoneb 3 Mg/0.5 Mg (3 Ml) Ud) 3 ml INH RQ6 [facility] Last Admin: 09/24/17 14:03 Dose: 3 ml Alprazolam (Xanax) 0.5 mg PO HS [facility] Last Admin: 09/23/17 21:17 Dose: 0.5 mg Alprazolam (Xanax) 0.25 mg PO DAILY PRN PRN Reason: Anxiety Stop: 09/29/17 11:01 Last Admin: 09/23/17 17:40 Dose: 0.25 mg Escitalopram Oxalate (Lexapro) 20 mg PO DAILY [facility] Last Admin: 09/24/17 10:25 Dose: 20 mg Furosemide (Lasix) 20 mg IVP DAILY [facility] Last Admin: 09/24/17 10:16 Dose: 20 mg Guaifenesin/Dextromethorphan (Robitussin Dm) 5 ml PO Q4H PRN PRN Reason: Cough Last Admin: 09/24/17 10:24 Dose: 5 ml Heparin Sodium (Porcine) (Heparin) 5,000 units SC Q12H [facility] Piperacillin Sod/Tazobactam Sod (Zosyn 3.375 Gm Iv Premix) 3.375 gm in 50 mls @ 200 mls/hr IVPB STAT [facility] Last Admin: 09/21/17 17:48 Dose: 200 mls/hr Meropenem 500 mg/ Sodium (Chloride) 100 mls @ 100 mls/hr IVPB Q8 [facility] Last Admin: 09/24/17 13:40 Dose: 100 mls/hr Azithromycin (Zithromax 500mg In Ns Addvantage) 500 mg in 250 mls @ 167 mls/hr IVPB Q24H [facility] Last Admin: 09/24/17 00:01 Dose: 167 mls/hr Methylprednisolone (Solu-Medrol) 40 mg IV Q8 [facility] Last Admin: 09/24/17 13:37 Dose: 40 mg Oseltamivir Phosphate (Tamiflu Cap) 75 mg PO BID [facility] Stop: 09/25/17 23:25 Last Admin: 09/24/17 10:16 Dose: 75 mg Pantoprazole Sodium (Protonix Ec Tab) 40 mg PO DAILY [facility] Last Admin: 09/24/17 10:15 Dose: 40 mg Tiotropium [place] (Spiriva) 18 mcg INH RQ24 [facility] Last Admin: 09/24/17 08:30 Dose: Not Given Triamterene/HCTZ (Dyazide 25 Mg-37.5 Mg) 1 cap PO DAILY [facility] Last Admin: 09/24/17 10:16 Dose: 1 cap - Labs Labs: 09/23/17 11:19 09/23/17 11:19 PT 10.9 SECONDS (9.7-12.2) 09/20/17 17:05 INR 1.0 09/20/17 17:05 APTT 31 SECONDS (21-34) 09/20/17 17:05 - Head Exam Head Exam: ATRAUMATIC, NORMOCEPHALIC - Eye Exam Eye Exam: Normal appearance - ENT Exam ENT Exam: Mucous Membranes Moist - Neck Exam Neck Exam: Normal Inspection - Respiratory Exam Respiratory Exam: Rhonchi, Wheezes - Cardiovascular Exam Cardiovascular Exam: REGULAR RHYTHM - GI/Abdominal Exam GI & Abdominal Exam: Soft, Normal Bowel Sounds Assessment and Plan (1) Influenza B Status: Acute (2) COPD exacerbation Assessment & Plan: Continue nebulizer treatment continue IV steroids aS. patient still short of breath Status: Acute
--- NOTE | 2017-09-25 01:38 | PN ---
DATE: 09/24/2017 SUBJECTIVE: Patient is seen today, 09/24/2017. She is slightly feeling better, shortness of breath and wheezing tinajero. PHYSICAL EXAMINATION: VITAL SIGNS: Blood pressure is 145/85, temperature 97.3, respiratory rate 20, and pulse 79. HEENT: Pupils equal, reactive to light. Normal-appearing mucosa of the conjunctivae, oropharynx, and nasal membrane mucosa. NECK: Supple. No JVD. No carotid bruit. No lymph node. No thyromegaly. CHEST AND LUNGS: Bilateral symmetrical expansion. Good air exchange. No rales. There are some scattered rhonchi all over lung gonsalez. CARDIOVASCULAR SYSTEM: PMI not localized. S1 and S2. No additional sounds. ABDOMEN: Normoactive bowel sounds. No tenderness. No organomegaly. No masses. EXTREMITIES: No cyanosis, no clubbing, no edema. CENTRAL NERVOUS SYSTEM: Alert, awake, oriented x3. No neurological deficit could be appreciated. ASSESSMENT: 1. Exacerbation of chronic obstructive pulmonary disease. 2. Pneumonia. 3. Influenza B positive infection. 4. Hypertension. PLAN: Continue current management and antibiotics and follow recommendations of shot examiner and ID. Frankie Metzger MD
[2017-09-25] MEDS: MethylPREDNISolone 40 mg Vial IV SCH ×3 (06:22→21:37)
[2017-09-25] MEDS: Meropenem 500 MG in Sodium Chloride 0.9% 100 ML IVPB SCH ×3 (06:22→21:32)
[2017-09-25] MEDS: Albuterol-Ipratrop 3 mg / 0.5 (3 ml) UD INH SCH ×3 (08:00→20:17)
[2017-09-25] MEDS: hydroCHLOROthiazide-Triamterene 25 mg-37.5 mg Cap UD PO SCH (10:08)
[2017-09-25] MEDS: Pantoprazole 40 mg EC Tab PO SCH (10:08)
[2017-09-25] MEDS: Tiotropium 18 mcg Cap For Inhalation INH SCH (13:45)
[2017-09-25] MEDS: guaiFENesin DM 100 mg-10 mg/5 ml UD PO PRN (20:12)
[2017-09-25] MEDS: Azithromycin 500mg/250ML NS 500 MG/250 ML BAG IVPB SCH (22:45)
--- NOTE | 2017-09-26 00:50 | PN ---
DATE: 09/25/2017 DAILY PROGRESS NOTE SUBJECTIVE: The patient is seen today, 09/25/2017. She is still wheezing with mild respiratory distress. PHYSICAL EXAMINATION: VITAL SIGNS: Blood pressure is 158/98, temperature 97.7, respiratory rate 20 and pulse 69. HEENT: Pupils equal, reactive to light. Normal-appearing mucosa of the conjunctivae, oropharynx and nasal membrane mucosa. NECK: Supple. No JVD. No carotid bruit. No lymph node. No thyromegaly. CHEST AND LUNGS: Bilateral symmetrical expansion. Bilateral rhonchi scattered all over lung gonsalez. CARDIOVASCULAR SYSTEM: PMI not localized. S1 and S2. No additional sounds. ABDOMEN: Normoactive bowel sounds. No tenderness. No organomegaly. No masses. EXTREMITIES: No cyanosis, no clubbing, no edema. CENTRAL NERVOUS SYSTEM: Alert, awake, oriented x3. No neurological deficit could be appreciated. ASSESSMENT: 1. Exacerbation of chronic obstructive pulmonary disease. 2. Pneumonia. 3. Influenza B virus infection. 4. Hypertension. PLAN: Continue current management and follow recommendations of regional administrative assistant and Infectious Disease design and sales consultant. Frankie Metzger MD
[2017-09-26] MEDS: Albuterol-Ipratrop 3 mg / 0.5 (3 ml) UD INH SCH ×2 (01:33→18:54)
--- NOTE | 2017-09-26 05:01 | CARD ---
APPROVED REPORT EKG Measurement Heart [id number] <Conclusion> Normal sinus rhythm Normal ECG
[2017-09-26] MEDS: Meropenem 500 MG in Sodium Chloride 0.9% 100 ML IVPB SCH ×3 (06:33→21:58)
[2017-09-26] MEDS: MethylPREDNISolone 40 mg Vial IV SCH ×3 (06:34→21:58)
[2017-09-26 08:57] VITALS: RESP 20
[2017-09-26] MEDS: Pantoprazole 40 mg EC Tab PO SCH (09:47)
[2017-09-26] MEDS: hydroCHLOROthiazide-Triamterene 25 mg-37.5 mg Cap UD PO SCH (09:47)
[2017-09-26] MEDS: Tiotropium 18 mcg Cap For Inhalation INH SCH (13:18)
--- NOTE | 2017-09-26 14:42 | CT ---
CT chest without IV contrast Indication: Shortness of breath Technique: Contiguous axial images were obtained through the chest without intravenous contrast enhancement. Sagittal and coronal reconstructions were generated and reviewed. This CT exam was performed using 1 or more of the falling dose reduction techniques: Automated exposure control, adjustment of the MAA and/or kV according to patient size, and/or use of iterative reconstruction technique. Radiation dose (DLP): 471.76 MGy-cm. Comparison: Chest x-ray performed 09/20/17 Findings: Visualized portions of the inferior thyroid gland appear unremarkable. The unenhanced mediastinal and hilar vascular structures appear grossly unremarkable. The heart appears within normal limits of size. Emphysematous changes. No focal consolidation. No pleural effusion. No pneumothorax. Punctate calcified granuloma, right upper lobes. Tiny scattered nodular densities measuring less than 3 mm. Limited visualization of the noncontrast upper abdomen: Contracted gallbladder containing calcified gallstones. Osseous demineralization. Kyphosis. Loss of vertebral body height involving a mid to lower thoracic vertebral body, mild compression fracture deformity. Irregularity about this medial exit left clavicle related to remote injury. Impression: Emphysematous changes. Multiple scattered nodular densities measuring less than 3 mm. Recommend follow-up chest CT in 12 months. Contracted gallbladder containing calcified gallstones. Osseous demineralization. Kyphosis. Loss of vertebral body height involving a mid to lower thoracic vertebral body, mild compression fracture deformity. Irregularity about this medial exit left clavicle related to remote injury.
[2017-09-26] MEDS: guaiFENesin DM 100 mg-10 mg/5 ml UD PO PRN (14:56)
[2017-09-26 15:15] LABS: BASO % 0.2 % (0.0-2.0); HEMOGLOBIN 10.9 g/dL (11.0-16.0); LYMPH # 1.2 K/uL (1.0-4.3); LYMPH % 8.9 % (20.0-40.0); MEAN CELL VOLUME 63.9 fL (81.0-99.0); MEAN CORPUSCULAR HEMOGLOBIN 18.9 pg (27.0-31.0); MEAN CORPUSCULAR HGB CONC 29.5 g/dL (33.0-37.0); MEAN PLATELET VOLUME 11.3 fL (7.2-11.7); MONO # 0.6 K/uL (0.0-0.8); MONO % 4.6 % (0.0-10.0); NEUT # 11.2 K/uL (1.8-7.0); NEUT % 86.3 % (50.0-75.0); NRBC % 0.3 % (0.0-2.0); PLATELET COUNT 246 K/uL (130-400); RED CELL DISTRIBUTION WIDTH 16.5 % (11.5-14.5)
[2017-09-26 15:17] LABS: ALB/GLOB RATIO 1.7 (1.0-2.1); ALT/SGPT 30 U/L (9-52); AST/SGOT 17 U/L (14-36); BLOOD UREA NITROGEN 39 mg/dL (7-17); CALCIUM 8.3 mg/dl (8.6-10.4); GFR AFRICAN-AMERICAN > 60; GFR NON-AFRICAN AMERICAN > 60; MAGNESIUM 1.8 mg/dL (1.6-2.3)
--- NOTE | 2017-09-26 18:14 | CP.PCM.PN ---
Subjective - Date & Time of Evaluation Date of Evaluation: 09/26/17 Time of Evaluation: 11:40 - Subjective Subjective: patient seen and examined Still having trouble breathing CAT scan of the chest consistent with emphysema Afebrile On IV antibiotics Continue IV steroids Continue nebulizer treatment Objective - Vital Signs/Intake and Output Vital Signs (last 24 hours): Temp Pulse Resp BP Pulse Ox 98 F 75 20 163/99 H 98 09/26/17 16:24 09/26/17 16:24 09/26/17 16:24 09/26/17 17:32 09/26/17 16:24 Intake and Output: 09/26/17 09/26/17 06:59 18:59 Intake Total 530 Balance 530 - Medications Medications: Current Medications Alprazolam (Xanax) 0.5 mg PO HS [facility] Last Admin: 09/25/17 21:32 Dose: 0.5 mg Alprazolam (Xanax) 0.25 mg PO DAILY PRN PRN Reason: Anxiety Stop: 09/29/17 11:01 Last Admin: 09/24/17 19:00 Dose: 0.25 mg Amlodipine Besylate (Norvasc) 5 mg PO DAILY [facility] Escitalopram Oxalate (Lexapro) 20 mg PO DAILY [facility] Last Admin: 09/26/17 09:47 Dose: 20 mg Furosemide (Lasix) 20 mg IVP DAILY [facility] Last Admin: 09/26/17 09:45 Dose: 20 mg Guaifenesin/Dextromethorphan (Robitussin Dm) 5 ml PO Q4H PRN PRN Reason: Cough Last Admin: 09/26/17 14:56 Dose: 5 ml Heparin Sodium (Porcine) (Heparin) 5,000 units SC Q12H [facility] Meropenem 500 mg/ Sodium (Chloride) 100 mls @ 100 mls/hr IVPB Q8 [facility] Last Admin: 09/26/17 13:38 Dose: 100 mls/hr Azithromycin (Zithromax 500mg In Ns Addvantage) 500 mg in 250 mls @ 167 mls/hr IVPB Q24H [facility] Last Admin: 09/25/17 22:45 Dose: 167 mls/hr Methylprednisolone (Solu-Medrol) 40 mg IV Q8 [facility] Last Admin: 09/26/17 13:39 Dose: 40 mg Pantoprazole Sodium (Protonix Ec Tab) 40 mg PO DAILY [facility] Last Admin: 09/26/17 09:47 Dose: 40 mg Tiotropium [place] (Spiriva) 18 mcg INH RQ24 [facility] Last Admin: 09/26/17 13:18 Dose: Not Given Triamterene/HCTZ (Dyazide 25 Mg-37.5 Mg) 1 cap PO DAILY [facility] Last Admin: 09/26/17 09:47 Dose: 1 cap - Labs Labs: 09/26/17 14:34 09/26/17 14:34 PT 10.9 SECONDS (9.7-12.2) 09/20/17 17:05 INR 1.0 09/20/17 17:05 APTT 31 SECONDS (21-34) 09/20/17 17:05 Assessment and Plan (1) Influenza B Status: Acute (2) COPD exacerbation Status: Acute
[2017-09-26 18:38] LABS: LYMPHOCYTE 3 % (20-40); MICROCYTOSIS SLIGHT; MONOCYTE 8 % (0-10); NEUTROPHIL 89 % (50-75); PLATELET ESTIMATE NORMAL (NORMAL); TOTAL CELLS COUNTED 100
[2017-09-26 18:39] LABS: LARGE PLATELETS PRESENT; OVALOCYTES SLIGHT
--- NOTE | 2017-09-26 23:19 | CP.PCM.PN ---
Subjective - Date & Time of Evaluation Date of Evaluation: 09/26/17 Time of Evaluation: 23:19 - Subjective Subjective: CHIEF COMPLAINTS TODAY : afebrile, Still WHEEZING. +VE cough. ROS. HEENT : N. Resp : +VE COUGH, WHEEZING , NO pleuritic CP ,or hemoptysis Cardio : No anginal CP, PND, orthopnea, palpitation GI : No abd.pain, n/v ,diarrhea or GI bleeding . 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 Musculoskel : No joint swelling , Derm : No rash Psych : Normal affect. Ext : No swelling ,calf pain PE. Pt. is alert awake in no distress. V.S As noted in the chart Head ,ear nose,throat and eyes : Normal. Neck : Supple with normal carotids. Lungs: BILATERAL EXPIRATORY WHEEZE/RHONCHI. Heart : S1 & S2 IRREGULAR . No murmur. Abd : Soft non tender with normal bowel sounds. Neuro : Moves all ext. with no localized deficit. Ext : No edema with intact pulses.Non tender calves Derm : No rashes or decubitus ulcer. LABS/RADIOLOGY: CT CHEST 09/26/17 NOTED WITH EMPHYSEMATOUS CHANGES/AND SCATTERED NODULAR DENSITIES <3MM (see full report) sputum culture-normal nona .WBC 13.0 ?steroids Blood cultures negative to date .MRSA SCREEN NEGATIVE. Objective - Vital Signs/Intake and Output Vital Signs (last 24 hours): Temp Pulse Resp BP Pulse Ox 98 F 75 20 163/99 H 98 09/26/17 16:24 09/26/17 16:24 09/26/17 16:24 09/26/17 17:32 09/26/17 16:24 - Medications Medications: Current Medications Albuterol/Ipratropium (Duoneb 3 Mg/0.5 Mg (3 Ml) Ud) 3 ml INH RQ6 [facility] Last Admin: 09/26/17 18:54 Dose: 3 ml Alprazolam (Xanax) 0.5 mg PO HS [facility] Last Admin: 09/26/17 21:58 Dose: 0.5 mg Alprazolam (Xanax) 0.25 mg PO DAILY PRN PRN Reason: Anxiety Stop: 09/29/17 11:01 Last Admin: 09/26/17 18:18 Dose: 0.25 mg Amlodipine Besylate (Norvasc) 5 mg PO DAILY [facility] Last Admin: 09/26/17 18:16 Dose: 5 mg Escitalopram Oxalate (Lexapro) 20 mg PO DAILY [facility] Last Admin: 09/26/17 09:47 Dose: 20 mg Furosemide (Lasix) 20 mg IVP DAILY [facility] Last Admin: 09/26/17 09:45 Dose: 20 mg Guaifenesin/Dextromethorphan (Robitussin Dm) 5 ml PO Q4H PRN PRN Reason: Cough Last Admin: 09/26/17 14:56 Dose: 5 ml Heparin Sodium (Porcine) (Heparin) 5,000 units SC Q12H [facility] Meropenem 500 mg/ Sodium (Chloride) 100 mls @ 100 mls/hr IVPB Q8 [facility] Last Admin: 09/26/17 21:58 Dose: 100 mls/hr Azithromycin (Zithromax 500mg In Ns Addvantage) 500 mg in 250 mls @ 167 mls/hr IVPB Q24H [facility] Last Admin: 09/25/17 22:45 Dose: 167 mls/hr Methylprednisolone (Solu-Medrol) 40 mg IV Q8 [facility] Last Admin: 09/26/17 21:58 Dose: 40 mg Pantoprazole Sodium (Protonix Ec Tab) 40 mg PO DAILY [facility] Last Admin: 09/26/17 09:47 Dose: 40 mg Tiotropium [place] (Spiriva) 18 mcg INH RQ24 [facility] Last Admin: 09/26/17 13:18 Dose: Not Given Triamterene/HCTZ (Dyazide 25 Mg-37.5 Mg) 1 cap PO DAILY [facility] Last Admin: 09/26/17 09:47 Dose: 1 cap - Labs Labs: 09/26/17 14:34 09/26/17 14:34 PT 10.9 SECONDS (9.7-12.2) 09/20/17 17:05 INR 1.0 09/20/17 17:05 APTT 31 SECONDS (21-34) 09/20/17 17:05 Assessment and Plan (1) Influenza B Assessment & Plan: ON IV MEROPENEM 500 MG EVERY 8 HOURLY09/21/17 IV zITHROMAX 500 MG ONCE A DAY DAILY FOR STAPH SUPERINFECTION.09/21/17 ON TAMIFLU 75 MG BY MOUTH TWICE A DAY.09/20/17 --DAY7 X 3 MORE DAYS DROPLET PRECAUTIONS. Status: Acute (2) COPD exacerbation Assessment & Plan: as per PULMONARY. PATIENT ON iv sOLU-mEDROL 40 MG EVERY 8 HOURLY. pULMONARY TOILET. Status: Acute (3) Anxiety Status: Acute - Assessment and Plan (Free Text) Plan: DR ALCANTARA ID TO F/U PT FROM 09/27/17 TO 10/03/17. PLEASE NOTIFY HIM OF ANY CHANGES IN STATUS OF THE PATIENT OR FOR RENEWAL OF ANTIBIOTICS.
[2017-09-26] MEDS: Azithromycin 500mg/250ML NS 500 MG/250 ML BAG IVPB SCH (23:58)
[2017-09-27] MEDS: Albuterol-Ipratrop 3 mg / 0.5 (3 ml) UD INH SCH ×4 (01:36→19:33)
--- NOTE | 2017-09-27 02:22 | PN ---
DATE: 09/26/2017 DAILY PROGRESS NOTE SUBJECTIVE: Patient is seen today, 09/26/2017. She still has wheezing and exertional shortness of breath. PHYSICAL EXAMINATION: VITAL SIGNS: Blood pressure is 163/99, temperature 98, respiratory rate 20 and pulse 75. HEENT: Pupils equal, reactive to light. Normal-appearing mucosa of the conjunctivae, oropharyngeal and nasal membrane mucosa. NECK: Supple. No JVD. No carotid bruit. No lymph node. No thyromegaly. CHEST AND LUNGS: Bilateral symmetrical expansion. Scattered rhonchi all over lung gonsalez. CARDIOVASCULAR SYSTEM: PMI not localized. S1 and S2. No additional sounds. ABDOMEN: Normoactive bowel sounds. No tenderness. No organomegaly. No masses. EXTREMITIES: No cyanosis, no clubbing, no edema. CENTRAL VENOUS SYSTEM: Alert, awake, oriented x2. No neurological deficit could be appreciated. ASSESSMENT: 1. Exacerbation of chronic obstructive pulmonary disease. 2. Pneumonia. 3. Influenza B viral infection. PLAN: Continue current medications and we will do a CAT scan of the chest and follow recommendations of ID and Pulmonary. Frankie Metzger MD
[2017-09-27] MEDS: MethylPREDNISolone 40 mg Vial IV SCH ×3 (06:02→21:44)
[2017-09-27] MEDS: Meropenem 500 MG in Sodium Chloride 0.9% 100 ML IVPB SCH ×3 (06:02→21:44)
[2017-09-27] MEDS: Tiotropium 18 mcg Cap For Inhalation INH SCH (07:11)
[2017-09-27] MEDS: Pantoprazole 40 mg EC Tab PO SCH (10:23)
[2017-09-27] MEDS: hydroCHLOROthiazide-Triamterene 25 mg-37.5 mg Cap UD PO SCH (10:23)
[2017-09-27] MEDS: guaiFENesin DM 100 mg-10 mg/5 ml UD PO PRN (10:23)
[2017-09-27 12:33] LABS: BASO % 0.2 % (0.0-2.0); HEMOGLOBIN 11.1 g/dL (11.0-16.0); LYMPH % 6.7 % (20.0-40.0); MEAN CELL VOLUME 63.5 fL (81.0-99.0); MEAN CORPUSCULAR HEMOGLOBIN 18.8 pg (27.0-31.0); MEAN CORPUSCULAR HGB CONC 29.6 g/dL (33.0-37.0); MEAN PLATELET VOLUME 11.1 fL (7.2-11.7); MONO # 0.7 K/uL (0.0-0.8); MONO % 4.9 % (0.0-10.0); NEUT # 12.7 K/uL (1.8-7.0); NEUT % 88.2 % (50.0-75.0); NRBC % 0.1 % (0.0-2.0); PLATELET COUNT 329 K/uL (130-400); RBC 5.89 Mil/uL (3.80-5.20); WHITE BLOOD COUNT 14.4 K/uL (4.8-10.8)
[2017-09-27 13:14] LABS: ANISOCYTOSIS SLIGHT; BANDS 4 % (0-2); HYPOCHROMIC MODERATE; LYMPHOCYTE 7 % (20-40); METAMYELOCYTE 1 % (0-0); MICROCYTOSIS MODERATE; MONOCYTE 4 % (0-10); NEUTROPHIL 84 % (50-75); NUCLEATED RED BLOOD CELL 1 % (0-0); PLATELET ESTIMATE NORMAL (NORMAL); POIKILOCYTOSIS SLIGHT; TOTAL CELLS COUNTED 100
[2017-09-27 13:15] LABS: OVALOCYTES SLIGHT
[2017-09-27 13:17] LABS: ALB/GLOB RATIO 1.5 (1.0-2.1); ALT/SGPT 27 U/L (9-52); AST/SGOT 22 U/L (14-36); BLOOD UREA NITROGEN 41 mg/dL (7-17); CALCIUM 8.8 mg/dl (8.6-10.4); GFR AFRICAN-AMERICAN > 60; GFR NON-AFRICAN AMERICAN > 60; MAGNESIUM 1.9 mg/dL (1.6-2.3)
--- NOTE | 2017-09-27 15:40 | CP.PCM.PN ---
Subjective - Date & Time of Evaluation Date of Evaluation: 09/27/17 Time of Evaluation: 09:00 - Subjective Subjective: 67 year old female with history of HTN, anxiety, COPD - on 2L of O2 at home, previously intubated once in 2008, who was admitted on 09/20/17 for 1 week history of shortness of breath, wheezing, fever, and productive cough, that was not improved on her home medication. Pulmonology consulted for evaluation of dyspnea, given history of COPD. Acute COPD exacerbation O2 sat 100% on 3L O2 via [place] Respiratory infection, influenza - Positive for Influenza B Group A beta step negative Blood culture negative Throat culture negative for Group A step. Sputum culture negative CXR 09/20/17: bibasilar atelectasis. Chest CT 09/26/17 : Emphysematous changes. Multiple scattered nodular densities measuring less than 3 mm. Recommend follow-up chest CT in 12 months. Contracted gallbladder containing calcified gallstones. Osseous demineralization. Kyphosis. Loss of vertebral body height involving a mid to lower thoracic vertebral body, mild compression fracture deformity. Irregularity about this medial exit left clavicle related to remote injury. 09/20/17 ABG pH 7.46 pCO2 55 pO2 109 HCO3 35.6 09/20/17 Bicarb 41 09/23/17: Bicarb 40 09/26/17 Bicarb 41 Continue meds: Albuterol/Ipratropium 3cc INH R Q6 Azithromycin 500mg IV Guaifenessin/Dextromethorphan 5ml PO Q4 PRN ?Meropenem 500mg IV Methylprednisone 40mg IV Q 8 Spiriva 18mcg INH R Q24 [facility] - Vital Signs/Intake and Output Vital Signs (last 24 hours): Temp Pulse Resp BP Pulse Ox 97.3 F L 76 20 167/87 H 100 09/27/17 08:22 09/27/17 08:22 09/27/17 08:22 09/27/17 10:23 09/27/17 08:22 - Medications Medications: Current Medications Albuterol/Ipratropium (Duoneb 3 Mg/0.5 Mg (3 Ml) Ud) 3 ml INH RQ6 [facility] Last Admin: 09/27/17 13:07 Dose: 3 ml Alprazolam (Xanax) 0.5 mg PO HS [facility] Last Admin: 09/26/17 21:58 Dose: 0.5 mg Alprazolam (Xanax) 0.25 mg PO DAILY PRN PRN Reason: Anxiety Stop: 09/29/17 11:01 Last Admin: 09/26/17 18:18 Dose: 0.25 mg Amlodipine Besylate (Norvasc) 5 mg PO DAILY [facility] Last Admin: 09/27/17 10:23 Dose: 5 mg Escitalopram Oxalate (Lexapro) 20 mg PO DAILY [facility] Last Admin: 09/27/17 10:23 Dose: 20 mg Furosemide (Lasix) 20 mg IVP DAILY [facility] Last Admin: 09/27/17 10:23 Dose: 20 mg Guaifenesin/Dextromethorphan (Robitussin Dm) 5 ml PO Q4H PRN PRN Reason: Cough Last Admin: 09/27/17 10:23 Dose: 5 ml Heparin Sodium (Porcine) (Heparin) 5,000 units SC Q12H [facility] Meropenem 500 mg/ Sodium (Chloride) 100 mls @ 100 mls/hr IVPB Q8 [facility] Last Admin: 09/27/17 13:50 Dose: 100 mls/hr Azithromycin (Zithromax 500mg In Ns Addvantage) 500 mg in 250 mls @ 167 mls/hr IVPB Q24H [facility] Last Admin: 09/26/17 23:58 Dose: 167 mls/hr Methylprednisolone (Solu-Medrol) 40 mg IV Q8 [facility] Last Admin: 09/27/17 13:50 Dose: 40 mg Oseltamivir Phosphate (Tamiflu Cap) 75 mg PO BID [facility] Stop: 09/30/17 10:01 Last Admin: 09/27/17 10:23 Dose: 75 mg Pantoprazole Sodium (Protonix Ec Tab) 40 mg PO DAILY [facility] Last Admin: 09/27/17 10:23 Dose: 40 mg Tiotropium [place] (Spiriva) 18 mcg INH RQ24 [facility] Last Admin: 09/27/17 07:11 Dose: Not Given Triamterene/HCTZ (Dyazide 25 Mg-37.5 Mg) 1 cap PO DAILY [facility] Last Admin: 09/27/17 10:23 Dose: 1 cap - Labs Labs: 09/27/17 12:28 09/27/17 12:28 PT 10.9 SECONDS (9.7-12.2) 09/20/17 17:05 INR 1.0 09/20/17 17:05 APTT 31 SECONDS (21-34) 09/20/17 17:05 Assessment and Plan (1) Influenza B Status: Acute (2) COPD exacerbation Status: Acute
--- NOTE | 2017-09-27 21:37 | PN ---
DATE: 09/27/2017 SUBJECTIVE: The patient is seen today, 09/27/2017. She is in mild respiratory distress. Her shortness of breath increased by exertion with some wheezing. PHYSICAL EXAMINATION: VITAL SIGNS: Blood pressure 163/82, temperature 97.3, respiratory rate 20, and pulse 76. HEENT: Pupils equal, reactive to light. Normal-appearing mucosa of the conjunctivae, oropharynx, and nasal membrane mucosa. NECK: Supple. No JVD. No carotid bruit. No lymph node. No thyromegaly. CHEST AND LUNGS: Bilateral symmetrical expansion. Good air exchange. There are bilateral rhonchi and there is coarse rale change with cough. CARDIOVASCULAR SYSTEM: PMI not localized. S1, S2. No additional sounds. ABDOMEN: Normoactive bowel sounds. No tenderness. No organomegaly. No masses. EXTREMITIES: No cyanosis. No clubbing. No edema. CENTRAL NERVOUS SYSTEM: Alert, awake, oriented x3. No neurological deficit could be appreciated. ASSESSMENT: Exacerbation of chronic obstructive pulmonary disease, pneumonia, influenza B virus infection. PLAN. Continue current antibiotics. Continue followup recommendations of pulmonary and ID. Physical therapy. Frankie Metzger MD
[2017-09-28] MEDS: Albuterol-Ipratrop 3 mg / 0.5 (3 ml) UD INH SCH ×4 (02:22→19:16)
[2017-09-28] MEDS: Meropenem 500 MG in Sodium Chloride 0.9% 100 ML IVPB SCH ×3 (06:01→21:29)
[2017-09-28] MEDS: MethylPREDNISolone 40 mg Vial IV SCH ×3 (06:01→21:29)
[2017-09-28 07:33] LABS: BASO % 0.3 % (0.0-2.0); EOS % 0.1 % (0.0-4.0); HEMOGLOBIN 9.7 g/dL (11.0-16.0); LYMPH # 0.7 K/uL (1.0-4.3); LYMPH % 5.5 % (20.0-40.0); MEAN CELL VOLUME 63.2 fL (81.0-99.0); MEAN CORPUSCULAR HGB CONC 30.1 g/dL (33.0-37.0); MEAN PLATELET VOLUME 10.9 fL (7.2-11.7); MONO % 7.6 % (0.0-10.0); NEUT # 11.6 K/uL (1.8-7.0); NEUT % 86.5 % (50.0-75.0); NRBC % 0.4 % (0.0-2.0); PLATELET COUNT 272 K/uL (130-400); RBC 5.08 Mil/uL (3.80-5.20); RED CELL DISTRIBUTION WIDTH 16.6 % (11.5-14.5); WHITE BLOOD COUNT 13.4 K/uL (4.8-10.8)
[2017-09-28 08:21] LABS: ALB/GLOB RATIO 1.4 (1.0-2.1); ALBUMIN 3.2 g/dL (3.5-5.0); ALT/SGPT 24 U/L (9-52); AST/SGOT 15 U/L (14-36); BLOOD UREA NITROGEN 51 mg/dL (7-17); CALCIUM 8.4 mg/dl (8.6-10.4); GFR AFRICAN-AMERICAN > 60; GFR NON-AFRICAN AMERICAN > 60; MAGNESIUM 2.1 mg/dL (1.6-2.3)
[2017-09-28] MEDS: Tiotropium 18 mcg Cap For Inhalation INH SCH (08:32)
[2017-09-28 10:25] LABS: BANDS 1 % (0-2); LYMPHOCYTE 5 % (20-40); MONOCYTE 5 % (0-10); NEUTROPHIL 89 % (50-75); PLATELET ESTIMATE NORMAL (NORMAL); TOTAL CELLS COUNTED 100
[2017-09-28 10:26] LABS: ANISOCYTOSIS SLIGHT
[2017-09-28 10:27] LABS: HYPOCHROMIC MODERATE; OVALOCYTES SLIGHT; POIKILOCYTOSIS SLIGHT; TARGET CELLS SLIGHT
[2017-09-28 10:28] LABS: LARGE PLATELETS PRESENT
[2017-09-28] MEDS: Pantoprazole 40 mg EC Tab PO SCH (11:09)
[2017-09-28] MEDS: guaiFENesin DM 100 mg-10 mg/5 ml UD PO PRN ×2 (11:10→17:37)
[2017-09-28] MEDS: Oseltamivir 6 MG/ML PO SCH ×2 (14:09→17:39)
[2017-09-28] MEDS: hydroCHLOROthiazide-Triamterene 25 mg-37.5 mg Cap UD PO SCH (14:10)
--- NOTE | 2017-09-28 15:40 | CP.PCM.PN ---
Subjective - Date & Time of Evaluation Date of Evaluation: 09/28/17 Time of Evaluation: 16:00 - Subjective Subjective: Patient seen and examined at bedside. She states that she still feels short of breath even though she feels much improved from last week. Reports that her cough is unchanged from yesterday, still has a crackly cough productive of yellow nonbloody sputum. She states she feels heaviness in her chest due to congestion in her chest. She denies chest pain, fever, chills, headache, dizziness, abdominal pain. She states she would like to leave the hospital as soon as possible to get back home. Assessment and plan 67 year old female with history of HTN, anxiety, COPD - on 2L of O2 at home, previously intubated once in 2008, who was admitted on 09/20/17 for 1 week history of shortness of breath, wheezing, fever, and productive cough, that was not improved on her home medication. Pulmonology consulted for evaluation of dyspnea, given history of COPD. Acute COPD exacerbation O2 sat 100% on 3L O2 via [place] Respiratory infection, influenza - Positive for Influenza B Group A beta step negative Blood culture negative Throat culture negative for Group A step. Sputum culture negative CXR 09/20/17: bibasilar atelectasis. Chest CT 09/26/17 : Emphysematous changes. Multiple scattered nodular densities measuring less than 3 mm. Recommend follow-up chest CT in 12 months. Contracted gallbladder containing calcified gallstones. Osseous demineralization. Kyphosis. Loss of vertebral body height involving a mid to lower thoracic vertebral body, mild compression fracture deformity. Irregularity about this medial exit left clavicle related to remote injury. 09/20/17 ABG pH 7.46 pCO2 55 pO2 109 HCO3 35.6 09/28 WBC 13.4 ?Continue meds: Albuterol/Ipratropium 3cc INH R Q6 Azithromycin 500mg PO daily Guaifenessin/Dextromethorphan 5ml PO Q4 PRN ?Meropenem 500mg IV Methylprednisone 40mg IV Q 8 Spiriva 18mcg INH R Q24 Tamiflu 30mg PO BID [facility] - Vital Signs/Intake and Output Vital Signs (last 24 hours): Temp Pulse Resp BP Pulse Ox 97.5 F L 76 20 124/74 100 09/28/17 07:15 09/28/17 07:15 09/28/17 07:15 09/28/17 11:09 09/28/17 07:15 - Medications Medications: Current Medications Albuterol/Ipratropium (Duoneb 3 Mg/0.5 Mg (3 Ml) Ud) 3 ml INH RQ6 [facility] Last Admin: 09/28/17 13:36 Dose: 3 ml Alprazolam (Xanax) 0.5 mg PO HS [facility] Last Admin: 09/27/17 21:44 Dose: 0.5 mg Alprazolam (Xanax) 0.25 mg PO DAILY PRN PRN Reason: Anxiety Stop: 09/29/17 11:01 Last Admin: 09/26/17 18:18 Dose: 0.25 mg Amlodipine Besylate (Norvasc) 5 mg PO DAILY [facility] Last Admin: 09/28/17 11:10 Dose: 5 mg Azithromycin (Zithromax) 500 mg PO DAILY [facility] Escitalopram Oxalate (Lexapro) 20 mg PO DAILY [facility] Last Admin: 09/28/17 11:10 Dose: 20 mg Furosemide (Lasix) 20 mg IVP DAILY [facility] Last Admin: 09/28/17 11:09 Dose: 20 mg Guaifenesin/Dextromethorphan (Robitussin Dm) 5 ml PO Q4H PRN PRN Reason: Cough Last Admin: 09/28/17 11:10 Dose: 5 ml Heparin Sodium (Porcine) (Heparin) 5,000 units SC Q12H [facility] Meropenem 500 mg/ Sodium (Chloride) 100 mls @ 100 mls/hr IVPB Q8 [facility] Last Admin: 09/28/17 14:10 Dose: 100 mls/hr Methylprednisolone (Solu-Medrol) 40 mg IV Q8 [facility] Last Admin: 09/28/17 14:10 Dose: 40 mg Oseltamivir Phosphate (Tamiflu Susp) 30 mg PO BID [facility] Stop: 10/03/17 10:01 Last Admin: 09/28/17 14:09 Dose: 30 mg Pantoprazole Sodium (Protonix Ec Tab) 40 mg PO DAILY [facility] Last Admin: 09/28/17 11:09 Dose: 40 mg Tiotropium [place] (Spiriva) 18 mcg INH RQ24 [facility] Last Admin: 09/28/17 08:32 Dose: Not Given Triamterene/HCTZ (Dyazide 25 Mg-37.5 Mg) 1 cap PO DAILY [facility] Last Admin: 09/28/17 14:10 Dose: 1 cap - Labs Labs: 09/28/17 07:12 09/28/17 07:12 PT 10.9 SECONDS (9.7-12.2) 09/20/17 17:05 INR 1.0 09/20/17 17:05 APTT 31 SECONDS (21-34) 09/20/17 17:05 Assessment and Plan (1) Influenza B Status: Acute (2) COPD exacerbation Status: Acute
[2017-09-29] MEDS: Albuterol-Ipratrop 3 mg / 0.5 (3 ml) UD INH SCH ×4 (01:04→19:47)
--- NOTE | 2017-09-29 01:52 | PN ---
DATE: 09/28/2017 DAILY PROGRESS NOTE SUBJECTIVE: Patient is seen today, 09/28/2017. She has less wheezing and decreased shortness of breath. PHYSICAL EXAMINATION: VITAL SIGNS: Blood pressure 124/74, temperature 98.1, respiratory rate 20 and pulse 78. HEENT: Pupils equal, reactive to light. Normal-appearing mucosa of the conjunctivae, oropharyngeal, and nasal membrane mucosa. NECK: Supple. No JVD. No carotid bruit. No lymph node. No thyromegaly. CHEST AND LUNGS: Bilateral symmetrical expansion. Good air exchange. There are scattered rhonchi all over lung gonsalez. CARDIOVASCULAR SYSTEM: PMI not localized, S1 and S2. No additional sounds. ABDOMEN: Normoactive bowel sounds. No tenderness. No organomegaly. No masses. EXTREMITIES: No cyanosis, no clubbing, no edema. CENTRAL NERVOUS SYSTEM: Alert, awake, oriented x2. No neurological deficit could be appreciated. ASSESSMENT: 1. Exacerbation of chronic obstructive pulmonary disease. 2. Pneumonia. 3. Influenza B positive viral infection. PLAN: Continue current medications and follow both Pulmonary and ID recommendations. Frankie Metzger MD
[2017-09-29] MEDS: MethylPREDNISolone 40 mg Vial IV SCH ×3 (05:35→22:40)
[2017-09-29] MEDS: Meropenem 500 MG in Sodium Chloride 0.9% 100 ML IVPB SCH ×3 (05:35→22:40)
[2017-09-29] MEDS: Tiotropium 18 mcg Cap For Inhalation INH SCH (07:10)
[2017-09-29] MEDS: Oseltamivir 6 MG/ML PO SCH ×2 (10:45→17:23)
[2017-09-29] MEDS: Pantoprazole 40 mg EC Tab PO SCH (10:45)
[2017-09-29] MEDS: hydroCHLOROthiazide-Triamterene 25 mg-37.5 mg Cap UD PO SCH (10:45)
[2017-09-29 14:16] LABS: BASO % 0.1 % (0.0-2.0); HEMOGLOBIN 10.7 g/dL (11.0-16.0); LYMPH % 5.5 % (20.0-40.0); MEAN CELL VOLUME 63.2 fL (81.0-99.0); MEAN PLATELET VOLUME 10.7 fL (7.2-11.7); MONO # 1.3 K/uL (0.0-0.8); NEUT # 15.6 K/uL (1.8-7.0); NEUT % 87.4 % (50.0-75.0); NRBC % 0.1 % (0.0-2.0); PLATELET COUNT 332 K/uL (130-400); RBC 5.65 Mil/uL (3.80-5.20); RED CELL DISTRIBUTION WIDTH 16.5 % (11.5-14.5); WHITE BLOOD COUNT 17.9 K/uL (4.8-10.8)
[2017-09-29 14:45] LABS: ALB/GLOB RATIO 1.5 (1.0-2.1); ALBUMIN 3.8 g/dL (3.5-5.0); ALT/SGPT 36 U/L (9-52); AST/SGOT 37 U/L (14-36); BLOOD UREA NITROGEN 50 mg/dL (7-17); CALCIUM 9.2 mg/dl (8.6-10.4); GFR AFRICAN-AMERICAN > 60; GFR NON-AFRICAN AMERICAN > 60
[2017-09-29 14:55] LABS: BANDS 1 % (0-2); LYMPHOCYTE 6 % (20-40); MONOCYTE 6 % (0-10); NEUTROPHIL 87 % (50-75); TOTAL CELLS COUNTED 100
[2017-09-29 14:57] LABS: ANISOCYTOSIS SLIGHT; PLATELET ESTIMATE NORMAL (NORMAL)
[2017-09-29 14:58] LABS: MICROCYTOSIS MODERATE
[2017-09-29 14:59] LABS: HYPOCHROMIC MODERATE; OVALOCYTES SLIGHT; POLYCHROMIC SLIGHT; TARGET CELLS SLIGHT; TOXIC GRANULATION PRESENT
--- NOTE | 2017-09-29 16:55 | CP.PCM.PN ---
Subjective - Date & Time of Evaluation Date of Evaluation: 09/29/17 Time of Evaluation: 07:00 - Subjective Subjective: Patient seen and examined at bedside. She states that she still has a wet cough but she is unable to cough up her sputum. Admits to experiencing some chest heaviness from her congestion. She states she doesn't feel as short of breath as she did initially. She states she would like to go home soon. She denies chest pain, fever, chills, headache, dizziness, nausea, vomiting, diarrhea. Assessment and plan 67 year old female with history of HTN, anxiety, COPD - on 2L of O2 at home, previously intubated once in 2008, who was admitted on 09/20/17 for 1 week history of shortness of breath, wheezing, fever, and productive cough, that did not improve on her home medication. Pulmonology consulted for evaluation of dyspnea, given history of COPD. Acute COPD exacerbation 96% on 2L O2 via [place] Respiratory infection, influenza Positive for Influenza B Group A beta step negative Blood culture negative Throat culture negative for Group A step. Sputum culture negative CXR 09/20/17: bibasilar atelectasis. Chest CT 09/26/17 : Emphysematous changes. Multiple scattered nodular densities measuring less than 3 mm. Recommend follow-up chest CT in 12 months. Contracted gallbladder containing calcified gallstones. Osseous demineralization. Kyphosis. Loss of vertebral body height involving a mid to lower thoracic vertebral body, mild compression fracture deformity. Irregularity about this medial exit left clavicle related to remote injury. 09/20/17 ABG pH 7.46 pCO2 55 pO2 109 HCO3 35.6 09/28 WBC 13.4 Continue meds: Albuterol/Ipratropium 3cc INH R Q6 Azithromycin 500mg PO daily Guaifenessin/Dextromethorphan 5ml PO Q4 PRN Meropenem 500mg IV Methylprednisone 40mg IV Q 8 Spiriva 18mcg INH R Q24 Tamiflu 30mg PO BID [facility] - Vital Signs/Intake and Output Vital Signs (last 24 hours): Temp Pulse Resp BP Pulse Ox 97.5 F L 86 20 163/84 H 96 09/29/17 08:10 09/29/17 08:10 09/29/17 08:10 09/29/17 10:45 09/29/17 08:10 Intake and Output: 09/29/17 09/29/17 06:59 18:59 Intake Total 500 Balance 500 - Medications Medications: Current Medications Albuterol/Ipratropium (Duoneb 3 Mg/0.5 Mg (3 Ml) Ud) 3 ml INH RQ6 [facility] Last Admin: 09/29/17 13:52 Dose: 3 ml Alprazolam (Xanax) 0.5 mg PO HS [facility] Last Admin: 09/28/17 21:29 Dose: 0.5 mg Alprazolam (Xanax) 0.25 mg PO DAILY PRN PRN Reason: Anxiety Stop: 10/06/17 16:46 Amlodipine Besylate (Norvasc) 5 mg PO DAILY [facility] Last Admin: 09/29/17 10:45 Dose: 5 mg Azithromycin (Zithromax) 500 mg PO DAILY [facility] Last Admin: 09/29/17 10:45 Dose: 500 mg Escitalopram Oxalate (Lexapro) 20 mg PO DAILY [facility] Last Admin: 09/29/17 10:45 Dose: 20 mg Furosemide (Lasix) 20 mg IVP DAILY [facility] Last Admin: 09/29/17 10:45 Dose: 20 mg Guaifenesin/Dextromethorphan (Robitussin Dm) 5 ml PO Q4H PRN PRN Reason: Cough Last Admin: 09/28/17 17:37 Dose: 5 ml Heparin Sodium (Porcine) (Heparin) 5,000 units SC Q12H [facility] Meropenem 500 mg/ Sodium (Chloride) 100 mls @ 100 mls/hr IVPB Q8 [facility] Last Admin: 09/29/17 13:35 Dose: 100 mls/hr Methylprednisolone (Solu-Medrol) 40 mg IV Q8 [facility] Last Admin: 09/29/17 13:34 Dose: 40 mg Oseltamivir Phosphate (Tamiflu Susp) 30 mg PO BID [facility] Stop: 10/03/17 10:01 Last Admin: 09/29/17 10:45 Dose: 30 mg Pantoprazole Sodium (Protonix Ec Tab) 40 mg PO DAILY [facility] Last Admin: 09/29/17 10:45 Dose: 40 mg Tiotropium [place] (Spiriva) 18 mcg INH RQ24 [facility] Last Admin: 09/29/17 07:10 Dose: Not Given Triamterene/HCTZ (Dyazide 25 Mg-37.5 Mg) 1 cap PO DAILY [facility] Last Admin: 09/29/17 10:45 Dose: 1 cap - Labs Labs: 09/29/17 14:11 09/29/17 14:11 PT 10.9 SECONDS (9.7-12.2) 09/20/17 17:05 INR 1.0 09/20/17 17:05 APTT 31 SECONDS (21-34) 09/20/17 17:05 Assessment and Plan (1) Influenza B Status: Acute (2) COPD exacerbation Status: Acute
[2017-09-30] MEDS: Albuterol-Ipratrop 3 mg / 0.5 (3 ml) UD INH SCH ×3 (01:17→13:05)
[2017-09-30] MEDS: Meropenem 500 MG in Sodium Chloride 0.9% 100 ML IVPB SCH ×2 (05:40→14:09)
[2017-09-30] MEDS: MethylPREDNISolone 40 mg Vial IV SCH ×2 (05:40→14:10)
[2017-09-30] MEDS: Pantoprazole 40 mg EC Tab PO SCH ×2 (07:12→10:21)
[2017-09-30] MEDS: Tiotropium 18 mcg Cap For Inhalation INH SCH (07:30)
[2017-09-30] MEDS: hydroCHLOROthiazide-Triamterene 25 mg-37.5 mg Cap UD PO SCH (10:21)
[2017-09-30] MEDS: Oseltamivir 6 MG/ML PO SCH (10:30)
--- NOTE | 2017-09-30 14:01 | CP.PCM.PN ---
Subjective - Date & Time of Evaluation Date of Evaluation: 09/30/17 Time of Evaluation: 14:00 - Subjective Subjective: PATIENT WAS ADMITTED FOR COPD EXARCERBATION AND INFLUENZA; PATIENT COMPLAINING OF WHEEZING ON AN OFF WITH 2 L NASAL CANULLA; DENIES CHEST PAIN, BACK PAIN, SOB OR PALPITATION; NO SIGN OF DISTRESS NOTED Objective - Vital Signs/Intake and Output Vital Signs (last 24 hours): Temp Pulse Resp BP Pulse Ox 98.1 F 79 20 160/70 H 100 09/30/17 07:10 09/30/17 07:10 09/30/17 07:10 09/30/17 10:21 09/30/17 07:10 - Medications Medications: Current Medications Albuterol/Ipratropium (Duoneb 3 Mg/0.5 Mg (3 Ml) Ud) 3 ml INH RQ6 [facility] Last Admin: 09/30/17 13:05 Dose: 3 ml Alprazolam (Xanax) 0.5 mg PO HS [facility] Last Admin: 09/29/17 22:40 Dose: 0.5 mg Alprazolam (Xanax) 0.25 mg PO DAILY PRN PRN Reason: Anxiety Stop: 10/06/17 16:46 Last Admin: 09/29/17 17:23 Dose: 0.25 mg Amlodipine Besylate (Norvasc) 5 mg PO DAILY [facility] Last Admin: 09/30/17 10:21 Dose: 5 mg Azithromycin (Zithromax) 500 mg PO DAILY [facility] Last Admin: 09/30/17 10:21 Dose: 500 mg Escitalopram Oxalate (Lexapro) 20 mg PO DAILY [facility] Last Admin: 09/30/17 10:21 Dose: 20 mg Furosemide (Lasix) 20 mg IVP DAILY [facility] Last Admin: 09/30/17 10:21 Dose: 20 mg Guaifenesin/Dextromethorphan (Robitussin Dm) 5 ml PO Q4H PRN PRN Reason: Cough Last Admin: 09/28/17 17:37 Dose: 5 ml Heparin Sodium (Porcine) (Heparin) 5,000 units SC Q12H [facility] Meropenem 500 mg/ Sodium (Chloride) 100 mls @ 100 mls/hr IVPB Q8 [facility] Last Admin: 09/30/17 05:40 Dose: 100 mls/hr Methylprednisolone (Solu-Medrol) 40 mg IV Q8 [facility] Last Admin: 09/30/17 05:40 Dose: 40 mg Oseltamivir Phosphate (Tamiflu Susp) 30 mg PO BID [facility] Stop: 10/03/17 10:01 Last Admin: 09/29/17 17:23 Dose: 30 mg Pantoprazole Sodium (Protonix Ec Tab) 40 mg PO DAILY [facility] Last Admin: 09/30/17 10:21 Dose: 40 mg Tiotropium [place] (Spiriva) 18 mcg INH RQ24 [facility] Last Admin: 09/30/17 07:30 Dose: Not Given Triamterene/HCTZ (Dyazide 25 Mg-37.5 Mg) 1 cap PO DAILY [facility] Last Admin: 09/30/17 10:21 Dose: 1 cap - Labs Labs: 09/29/17 14:11 09/29/17 14:11 PT 10.9 SECONDS (9.7-12.2) 09/20/17 17:05 INR 1.0 09/20/17 17:05 APTT 31 SECONDS (21-34) 09/20/17 17:05 Assessment and Plan - Assessment and Plan (Free Text) Assessment: PATIENT IS SEEN AND EXAMINED AT THE BEDSIDE; WHEEZING ON LUNG SOUND NOTED SATURATED AT 100% ON 2 L FOLLOW UP WITH DR VILLEDA IN 1-2 WEEKS AT HIS OFFICE ---CALL FOR APPOINTMENT FOLLOW UP WITH DR ALDRIDGE AT HIS OFFICE 1-2 WEEKS --CALL FOR APPOINTMENT CONTINUE ALL YOUR HOME MEDICATIONS DIRECTED NEW PRESCRIPTION GIVEN: ROBITUSSIN DM BY MOUTH EVERY 12 HOURS FOR COUGH PREDNISONE TAPER 20 MG BY MOUTH TWICE A DAY FOR 3 DAYS THEN 20 MG BY MOUTH ONCE A DAY FOR 3 DAYS THEN HALF A TAB ONCE A DAY FOR 4 DAYS NORVASC 5 MG BY MOUTH DAILY FOR HIGH BLOOD PRESSURE ALL PATIENT'S MEDICATIONS WERE FAX TO [facility]( PATIENT CALL DR VILLEDA OR DR ALDRIDGE IF SYMPTOMS RETURN OR WORSENING DISCUSS WITH PATIENT AND PATIENT'S WHO AGREE AND VERBALIZED UNDERSTANDING
[2017-09-30 15:53] VITALS: BP 163/75; PULSE 80; TEMP 98; O2SAT 99
--- NOTE | 2017-10-01 20:21 | PN ---
DATE: 09/29/2017 SUBJECTIVE: Patient was seen on 09/29/2017. She had less wheezing and was able to walk with less shortness of breath. PHYSICAL EXAMINATION: VITAL SIGNS: Blood pressure was 163/84, temperature 97.5, respiratory rate 20, and pulse 84. HEENT: Pupils equal, reactive to light. Normal-appearing mucosa of the conjunctivae, oropharynx, and nasal membrane mucosa. NECK: Supple. No JVD. No carotid bruit. No lymph node. No thyromegaly. CHEST AND LUNGS: Bilateral symmetrical expansion. Good air exchange. Decreased scattered rhonchi. CARDIOVASCULAR SYSTEM: PMI not localized. S1, S2. No additional sounds. ABDOMEN: Normoactive bowel sounds. No tenderness. No organomegaly. No masses. EXTREMITIES: No cyanosis, no clubbing, no edema. CENTRAL NERVOUS SYSTEM: Alert, awake, oriented x2. No neurological deficit could be appreciated. ASSESSMENT: Exacerbation of chronic obstructive pulmonary disease, pneumonia, hypertension. PLAN: Continue oxygen supplement and taper steroids. Follow pulmonary recommendations. If the patient is stable, we will discharge on 09/30/2017. Frankie Metzger MD
--- NOTE | 2017-10-02 09:52 | DS ---
REASON FOR ADMISSION: This is a 67-year-old female with history of severe COPD, on home oxygen who was admitted for exacerbation of the same and found also to have pneumonia. COURSE OF HOSPITALIZATION: The patient was admitted to medical floor and she was continued on oxygen. The patient was started on IV steroids, bronchodilators, and mucolytics. The patient had Pulmonary consultation done by Dr. Gayle. The patient was continued on antibiotics and she was discharged home in a stable condition, to continue the tapering steroids as well as antibiotics and bronchodilators, both steroids as well as beta-2 stimulants and anticholinergics. FINAL DIAGNOSES: 1. Exacerbation of chronic obstructive pulmonary disease. 2. Hypertension. 3. Pneumonia. [facility] MD Yassine
== END 2017-09-30 16:00 | disposition home or self-care (01) | DRG 190 ==
LOC: C.ER 15:44 → C.9E 18:04 → C.3T 20:12 → C.9E 20:23 → C.3T 21:36 → C.5S 09-22 01:12
PROVIDERS: ADMIT Internal Medicine; ATTEND Internal Medicine
DX: J44.0 Chronic obstructive pulmonary disease with (acute) lower respiratory infection (principal); J10.00 Influenza due to other identified influenza virus with unspecified type of pneumonia; Z99.81 Dependence on supplemental oxygen; J45.901 Unspecified asthma with (acute) exacerbation; J98.11 Atelectasis; J44.1 Chronic obstructive pulmonary disease with (acute) exacerbation; F41.9 Anxiety disorder, unspecified; Z87.891 Personal history of nicotine dependence; I10 Essential (primary) hypertension

== ENCOUNTER 2017-10-04 05:35 | Inpatient (IN) | payer OTHER ==
[2017-10-04 05:35] VITALS: BMI 34.2
[2017-10-04 06:46] LABS: BASO # 0.1 K/uL (0.0-0.2); BASO % 0.4 % (0.0-2.0); HEMOGLOBIN 9.9 g/dL (11.0-16.0); LYMPH # 0.9 K/uL (1.0-4.3); LYMPH % 3.2 % (20.0-40.0); MEAN CELL VOLUME 61.2 fL (81.0-99.0); MEAN CORPUSCULAR HEMOGLOBIN 18.7 pg (27.0-31.0); MEAN CORPUSCULAR HGB CONC 30.5 g/dL (33.0-37.0); MEAN PLATELET VOLUME 11.5 fL (7.2-11.7); MONO # 2.4 K/uL (0.0-0.8); MONO % 8.6 % (0.0-10.0); NEUT % 87.8 % (50.0-75.0); NRBC % 0.1 % (0.0-2.0); PLATELET COUNT 285 K/uL (130-400); RBC 5.32 Mil/uL (3.80-5.20); RED CELL DISTRIBUTION WIDTH 16.5 % (11.5-14.5); WHITE BLOOD COUNT 28.4 K/uL (4.8-10.8)
[2017-10-04 06:53] LABS: ALB/GLOB RATIO 1.4 (1.0-2.1); ALBUMIN 3.3 g/dL (3.5-5.0); ALT/SGPT 33 U/L (9-52); AST/SGOT 23 U/L (14-36); BLOOD UREA NITROGEN 71 mg/dL (7-17); CALCIUM 9.1 mg/dl (8.6-10.4); GFR AFRICAN-AMERICAN > 60; GFR NON-AFRICAN AMERICAN > 60; LIPASE 362 U/L (23-300)
[2017-10-04] MEDS ORDERED: Sodium Chloride 0.9% 1,000 ML IV ONE (07:24)
[2017-10-04] MEDS ORDERED: Piperacillin/Tazobact 3.375 gm 100 ML IVPB STA (07:30)
[2017-10-04 07:53] LABS: ANISOCYTOSIS SLIGHT; BANDS 1 % (0-2); HYPOCHROMIC MODERATE; LYMPHOCYTE 6 % (20-40); MONOCYTE 8 % (0-10); NEUTROPHIL 85 % (50-75); PLATELET ESTIMATE NORMAL (NORMAL); TOTAL CELLS COUNTED 100
[2017-10-04 07:54] LABS: LARGE PLATELETS PRESENT; MICROCYTOSIS MODERATE; TARGET CELLS SLIGHT
[2017-10-04] MEDS ORDERED: Morphine 4 MG/ML VIAL ONE ×2 (08:25→11:27)
[2017-10-04] MEDS ORDERED: Sodium Chloride 0.9% 1,000 ML ONE (08:25)
[2017-10-04] MEDS ORDERED: TAZOBACT IVPB STA (08:29)
[2017-10-04] MEDS ORDERED: PIPERACILLIN IVPB STA (08:29)
--- NOTE | 2017-10-04 08:29 | RAD ---
Chest x-ray single frontal view History: Abdominal pain. Comparison: 09/20/2017 Findings: Patchy increased markings at both lung bases suggestive for atelectasis and or infiltrate. Clinical correlation. Blunted left costophrenic angle which may represent trace effusion. Tortuous aorta. Degenerative changes in the spine and shoulders. Impression : Patchy increased markings at both lung bases suggestive for atelectasis and or infiltrate. Clinical correlation. Blunted left costophrenic angle which may represent trace effusion. Tortuous aorta.
--- NOTE | 2017-10-04 08:49 | C.PDOC ---
History Of Present Illness Patient arrived 90 minutes prior to starting shift, patient seen at 7am. 67 y/o female with history of hysterectomy and COPD presents to ED with complaints of abdominal pain, vomiting and diarrhea for 4 days. Patient admits to coffee ground on emesis and denies recent travel, fever, chills, back pain or any other complaints at this time. Time Seen by Provider: 10/04/17 07:14 Chief Complaint (Nursing): Abdominal Pain History Per: Patient History/Exam Limitations: no limitations Onset/Duration Of Symptoms: Days Current Symptoms Are (Timing): Still Present Location Of Pain/Discomfort: Diffuse Past Medical History Reviewed: Historical Data, Nursing Documentation, Vital Signs Vital Signs: Last Vital Signs Temp 98.1 F 10/06/17 00:00 Pulse 73 10/06/17 00:00 Resp 20 10/06/17 00:00 BP 135/85 10/06/17 00:00 Pulse Ox 100 10/06/17 00:00 - Medical History PMH: Anxiety, COPD, HTN Surgical History: No Surg Hx - [facility] Procedures ASSISTANCE WITH RESPIRATORY VENTILATION, 24-96 HRS, CPAP (08/30/17) Family History: States: No Known Family Hx - Social History Hx Tobacco Use: No Hx Alcohol Use: No Hx Substance Use: No - Immunization History Hx Tetanus Toxoid Vaccination: Yes Hx Influenza Vaccination: Yes Hx Pneumococcal Vaccination: Yes Review Of Systems Constitutional: Negative for: Fever, Chills Gastrointestinal: Positive for: Nausea, Vomiting, Abdominal Pain, Diarrhea Skin: Negative for: Rash Neurological: Negative for: Weakness, Numbness Physical Exam - Physical Exam Appears: Non-toxic, No Acute Distress Skin: Warm, Dry, No Rash Head: Atraumatic, Normacephalic Oral Mucosa: Moist Neck: Normal ROM, Supple Cardiovascular: Rhythm Regular Respiratory: Normal Breath Sounds, No Rales, No Rhonchi, No Wheezing Gastrointestinal/Abdominal: Bowel Sounds (Decreased), Tenderness (Diffuse), No Guarding, No Rebound Back: No CVA Tenderness Extremity: Normal ROM, Capillary Refill (<2 seconds) Neurological/Psych: Oriented x3 ED Course And Treatment - Laboratory Results Result Diagrams: 10/04/17 06:27 10/04/17 06:27 ECG: Interpreted By Me, Viewed By Me ECG Rhythm: Sinus Rhythm Interpretation Of ECG: NSR with PACs, normal access, normal interval Non specific T wave changes Rate From EC (BPM) O2 Sat by Pulse Oximetry: 100 (RA) Pulse Ox Interpretation: Normal Critical Care Time - Critical Care Note Total Time (in mins): 50 Documented critical care: time excludes all time spent performing seperately billable procedures. Medical Decision Making Medical Decision Making: Assessment: Abdominal Pain Plan: Patient had preordered blood work, WBC- 54302, Sodium 123 IV fluids given and Prophylaxis antibiotics administered Patient refused NG tube and antibiotics 1030: Discussed with Dr. Metzger, Patient will be admitted with , for surgical consult Diagnosis: SBO 1054: residential therapist notified of patient admission Disposition Discussed With DrLauren: Frankie Metzger Doctor Will See Patient In The: Hospital Counseled Patient/Family Regarding: Studies Performed, Diagnosis - Disposition Disposition: HOSPITALIZED Disposition Time: 10:33 Condition: FAIR - Clinical Impression Clinical Impression: SBO (small bowel obstruction) - Scribe Statement The provider has reviewed the documentation as recorded by the Ziggyibmichael Garcia All medical record entries made by the Ziggyibmichael were at my direction and personally dictated by me. I have reviewed the chart and agree that the record accurately reflects my personal performance of the history, physical exam, medical decision making, and the department course for this patient. I have also personally directed, reviewed, and agree with the discharge instructions and disposition.
--- NOTE | 2017-10-04 09:04 | CT ---
PROCEDURE: CT Abdomen and Pelvis without intravenous contrast HISTORY: Abdominal pain COMPARISON: None. TECHNIQUE: CT scan of the abdomen and pelvis was performed without administration of intravenous contrast. Oral contrast was not administered. Coronal and sagittal reformatted images were obtained. Radiation dose: Total exam DLP = 488.38 mGy-cm. This CT exam was performed using one or more of the following dose reduction techniques: Automated exposure control, adjustment of the mA and/or kV according to patient size, and/or use of iterative reconstruction technique. FINDINGS: LOWER THORAX: The lung bases are clear. LIVER: The liver is normal in size. No gross lesion or ductal dilatation. GALLBLADDER AND BILE DUCTS: There are small calcified gallstones. PANCREAS: Normal in size. No gross lesion or ductal dilatation. SPLEEN: Normal in size. ADRENALS: No discrete nodule. KIDNEYS AND URETERS: No hydronephrosis or nephrolithiasis. 1.5 cm simple cyst in the right upper pole. VASCULATURE: There are early atherosclerotic aortoiliac calcifications. No aortic aneurysm. BOWEL: There is severe dilatation of fluid-filled proximal and mid small bowel loops. The distal small bowel loops are normal in caliber. The ileocecal junction is normal. The transition zone is likely in the left lower abdomen. There is mild colonic diverticulosis without CT evidence for acute diverticulitis. APPENDIX: Normal appendix. PERITONEUM: No free fluid. No free air. LYMPH NODES: No enlarged lymph nodes. BLADDER: Decompressed. REPRODUCTIVE: The uterus is surgically absent. BONES: No acute fracture. Within normal limits for the patient's age. OTHER FINDINGS: None. IMPRESSION: 1. Findings are consistent with high-grade acute small bowel obstruction with transition zone likely in the distal small bowel loops in the left lower abdomen. No evidence of perforation or free fluid. 2. Cholelithiasis. 3. Mild colonic diverticulosis without CT evidence for acute diverticulitis.
[2017-10-04 09:25] LABS: SQUAMOUS EPITHIAL 1 /hpf (0-5); URINE BILIRUBIN NEGATIVE (NEGATIVE); URINE BLOOD NEGATIVE (NEGATIVE); URINE CLARITY Clear (Clear); URINE COLOR Yellow (YELLOW); URINE GLUCOSE (UA) NORMAL (Normal); URINE LEUKOCYTE ESTERASE NEG Leu/uL (Negative); URINE NITRATE NEGATIVE (NEGATIVE); URINE PROTEIN NEGATIVE (NEGATIVE); URINE UROBILINOGEN NORMAL mg/dL (0.2-1.0)
[2017-10-04] MEDS ORDERED: Sodium Chloride 0.9% 1,000 ML IV SCH (12:15)
--- NOTE | 2017-10-04 16:59 | CP.PCM.CON ---
History of Present Illness - History of Present Illness History of Present Illness: General Surgery Consult HPI: 67F presented to ED with epigastric abdominal pain associated with nausea and vomiting. Pain has been constant x 4 days. Pt immediately has emesis after eating. Pain is sharp without radiation. At its worst, pain is 10/10, and only pain meds make it better. Denies prior episodes in the past. Denies diarrhea, constipation, fever, chills, SOB, or CP. Last BM was this morning and normal. She refused NG tube insertion in the ED. Pt recently was treated at [facility] for PNA, COPD exacerbation, and influenza B. PMH: COPD on home O2, HTN, anxiety PSH: Hysterectomy SH: 40 pack years-quit 2008; denies ETOH and drug use Meds: See MAR, on taper dose of steroids. All: Denies Review of Systems - Review of Systems All systems: reviewed and no additional remarkable complaints except (As per HPI ) Past Patient History - Infectious Disease Hx of Infectious Diseases: None - Past Medical History & Family History Past Medical History?: Yes - Past Social History Smoking Status: Former Smoker - CARDIAC Hx Hypertension: Yes - PULMONARY Hx Chronic Obstructive Pulmonary Disease (COPD): Yes - NEUROLOGICAL Hx Neurological Disorder: No - HEENT Hx HEENT Problems: No - RENAL Hx Chronic Kidney Disease: No - ENDOCRINE/METABOLIC Hx Endocrine Disorders: No - HEMATOLOGICAL/ONCOLOGICAL Hx Blood Disorders: No - INTEGUMENTARY Hx Dermatological Problems: No - MUSCULOSKELETAL/RHEUMATOLOGICAL Hx Falls: No - GASTROINTESTINAL Hx Gastrointestinal Disorders: No - GENITOURINARY/GYNECOLOGICAL Hx Genitourinary Disorders: No - PSYCHIATRIC Hx Anxiety: Yes Hx Substance Use: No - SURGICAL HISTORY Hx Surgeries: Yes Hx Hysterectomy: Yes Other/Comment: Ovarian tumor removal - ANESTHESIA Hx Anesthesia: Yes Hx Anesthesia Reactions: No Hx Malignant Hyperthermia: No Meds Allergies/Adverse Reactions: Allergies Allergy/AdvReac Type Severity Reaction Status Date / Time No Known Allergies Allergy Verified 08/30/17 19:23 - Medications Medications: Current Medications Sodium Chloride (Sodium Chloride 0.9%) 1,000 mls @ 100 mls/hr IV .Q10H [facility] Ondansetron HCl (Zofran Inj) 4 mg IVP Q6 PRN PRN Reason: Nausea/Vomiting Physical Exam - Constitutional Appears: Non-toxic, No Acute Distress - Head Exam Head Exam: ATRAUMATIC, NORMOCEPHALIC - Eye Exam Eye Exam: EOMI. absent: Scleral icterus - ENT Exam ENT Exam: Mucous Membranes Dry. absent: Normal Exam - Neck Exam Neck exam: Negative for: Tenderness Additional comments: Thyroid midline - Respiratory Exam Respiratory Exam: Wheezes, NORMAL BREATHING PATTERN. absent: Respiratory Distress - Cardiovascular Exam Cardiovascular Exam: absent: Bradycardia, Tachycardia - GI/Abdominal Exam GI & Abdominal Exam: Distended, Firm, Tenderness. absent: Rebound - Extremities Exam Extremities exam: Positive for: pedal pulses present. Negative for: pedal edema - Neurological Exam Neurological exam: Alert, Oriented x3 - Psychiatric Exam Psychiatric exam: Anxious, Normal Affect - Skin Skin Exam: Dry, Warm Results - Vital Signs Recent Vital Signs: Last Vital Signs Temp 97.5 F L 10/04/17 15:00 Pulse 77 10/04/17 15:00 Resp 20 10/04/17 15:00 BP 128/85 10/04/17 15:00 Pulse Ox 100 10/04/17 15:00 - Labs Result Diagrams: 10/04/17 06:27 10/04/17 06:27 Labs: Laboratory Results - last 24 hr 10/04/17 10/04/17 10/04/17 06:27 06:27 09:09 WBC 28.4 H D RBC 5.32 H Hgb 9.9 L Hct 32.6 L MCV 61.2 L D MCH 18.7 L MCHC 30.5 L RDW 16.5 H Plt Count 285 MPV 11.5 Neut % (Auto) 87.8 H Lymph % (Auto) 3.2 L [place] % (Auto) 8.6 Eos % (Auto) 0.0 Baso % (Auto) 0.4 Neut # 25.0 H Lymph # 0.9 L [place] # 2.4 H Eos # 0.0 Baso # 0.1 Neutrophils % (Manual) 85 H Band Neutrophils % 1 Lymphocytes % (Manual) 6 L Monocytes % (Manual) 8 Platelet Estimate Normal Large Platelets Present Hypochromasia (manual) Moderate Anisocytosis (manual) Slight Microcytosis (manual) Moderate Target Cells Slight Sodium 122 L Potassium 3.6 Chloride 70 L Carbon Dioxide 42 H* Anion Gap 13 BUN 71 H Creatinine 0.9 Est GFR ( Amer) > 60 Est GFR (Non-Af Amer) > 60 Random Glucose 167 H Lactic Acid Calcium 9.1 Total Bilirubin 0.6 AST 23 ALT 33 Alkaline Phosphatase 48 Total Protein 5.7 L Albumin 3.3 L Globulin 2.4 Albumin/Globulin Ratio 1.4 Lipase 362 H Urine Color Yellow Urine Clarity Clear Urine pH 6.0 Ur Specific [place] 1.024 Urine Protein Negative Urine Glucose (UA) Normal Urine Ketones Negative Urine Blood Negative Urine Nitrate Negative Urine Bilirubin Negative Urine Urobilinogen Normal Ur Leukocyte Esterase Neg Urine WBC (Auto) 3 Urine RBC (Auto) 1 Ur Squamous Epith Cells 1 Hyaline Casts 11-20 H 10/04/17 09:09 WBC RBC Hgb Hct MCV MCH MCHC RDW Plt Count MPV Neut % (Auto) Lymph % (Auto) [place] % (Auto) Eos % (Auto) Baso % (Auto) Neut # Lymph # [place] # Eos # Baso # Neutrophils % (Manual) Band Neutrophils % Lymphocytes % (Manual) Monocytes % (Manual) Platelet Estimate Large Platelets Hypochromasia (manual) Anisocytosis (manual) Microcytosis (manual) Target Cells Sodium Potassium Chloride Carbon Dioxide Anion Gap BUN Creatinine Est GFR ( Amer) Est GFR (Non-Af Amer) Random Glucose Lactic Acid 1.2 Calcium Total Bilirubin AST ALT Alkaline Phosphatase Total Protein Albumin Globulin Albumin/Globulin Ratio Lipase Urine Color Urine Clarity Urine pH Ur Specific [place] Urine Protein Urine Glucose (UA) Urine Ketones Urine Blood Urine Nitrate Urine Bilirubin Urine Urobilinogen Ur Leukocyte Esterase Urine WBC (Auto) Urine RBC (Auto) Ur Squamous Epith Cells Hyaline Casts - Imaging and Cardiology CT scan - abdomen Status: Image reviewed by me, Report reviewed by me Assessment & Plan - Assessment and Plan (Free Text) Assessment: 67F with SBO Plan: Possible OR for diagnostic laparoscopy if no improvement Leukocytosis likely 2/2 steroid use Pain medications PRN IVF NG tube if vomiting Zofran Replete electrolytes Medical management Serial abd exams AM labs D/W Dr. Tyree Arguello PGY4 - Date & Time Date: 10/04/17 Time: 05:25
[2017-10-04] MEDS: MethylPREDNISolone 40 mg Vial IV SCH (21:40)
[2017-10-04] MEDS: Potassium Chloride 20 MEQ in Dextrose 5%/0.9% NS 1,000 ML IV SCH (21:45)
[2017-10-05] MEDS: Piperacillin/Tazobact 3.375 GM in Sodium Chloride 100 ML IVPB SCH ×4 (01:00→17:29)
[2017-10-05] MEDS: Albuterol-Ipratrop 3 mg / 0.5 (3 ml) UD INH SCH ×4 (01:04→19:24)
[2017-10-05] MEDS: MethylPREDNISolone 40 mg Vial IV SCH ×3 (05:54→22:01)
--- NOTE | 2017-10-05 06:14 | HP ---
HISTORY OF PRESENT ILLNESS: Patient is a 67-year-old female with history of multiple medical problems including severe COPD, on home oxygen, presented to emergency room with persistent vomiting for 2 days duration. Patient was evaluated in emergency room and she had a CT scan done that was consistent with high-grade acute small bowel obstruction with some incision zone likely in the distal small bowel loop and the left lower abdomen. Incidentally also patient has cholelithiasis and diverticulosis. Patient was admitted after surgical consultation was done for further management. Other review of systems shortness of breath. PAST MEDICAL HISTORY: Severe COPD, hypertension, status post hysterectomy. SOCIAL HISTORY: Ex-smoker. No EtOH or substance abuse. FAMILY HISTORY: Not contributory. MEDICATIONS: As per MAR. PHYSICAL EXAMINATION: VITAL SIGNS: Blood pressure 128/85, temperature 97.5, respiratory rate 20 and pulse 77. HEENT: Pupils equal, reactive to light. Normal-appearing mucosa of the conjunctivae, oropharynx, and nasal membrane mucosa. NECK: Supple. No JVD. No carotid bruit. No lymph node. No thyromegaly. CHEST AND LUNGS: Bilateral symmetrical expansion. Good air exchange. No rales, no rhonchi. CARDIOVASCULAR SYSTEM: PMI not localized. S1, S2. No additional sounds. ABDOMEN: Normoactive bowel sounds. No tenderness. No organomegaly. No masses. EXTREMITIES: No cyanosis, no clubbing, no edema. CENTRAL NERVOUS SYSTEM: Alert, awake, oriented x3. No neurological deficit could be appreciated. ASSESSMENT: High-grade small bowel obstruction, severe chronic obstructive pulmonary disease, hypertension. PLAN: We will follow surgical recommendations, order IV antibiotics and order one dose of steroid as the patient has been chronically on steroid. Frankie Metzger MD
[2017-10-05] MEDS: Potassium Chloride 20 MEQ in Dextrose 5%/0.9% NS 1,000 ML IV SCH ×2 (07:00→11:35)
--- NOTE | 2017-10-05 10:14 | CP.PCM.PN ---
Objective - Vital Signs/Intake and Output Vital Signs (last 24 hours): Temp Pulse Resp BP Pulse Ox 98.0 F 76 20 148/83 97 10/05/17 07:46 10/05/17 07:46 10/05/17 07:46 10/05/17 07:46 10/05/17 07:46 Intake and Output: 10/05/17 10/05/17 06:59 18:59 Intake Total 1600 Balance 1600 - Medications Medications: Current Medications Albuterol/Ipratropium (Duoneb 3 Mg/0.5 Mg (3 Ml) Ud) 3 ml INH RQ6 [facility] Last Admin: 10/05/17 07:45 Dose: 3 ml Potassium Chloride 20 meq/ (Dextrose/Sodium Chloride) 1,010 mls @ 100 mls/hr IV .Q10H6M [facility] Last Admin: 10/05/17 07:00 Dose: Not Given Piperacillin Sod/Tazobactam (Sod 3.375 gm/ Sodium Chloride) 100 mls @ 200 mls/ hr IVPB Q6H [facility] Last Admin: 10/05/17 05:54 Dose: 200 mls/hr Methylprednisolone (Solu-Medrol) 20 mg IV Q8 [facility] Last Admin: 10/05/17 05:54 Dose: 20 mg Ondansetron HCl (Zofran Inj) 4 mg IVP Q6 PRN PRN Reason: Nausea/Vomiting Pantoprazole Sodium (Protonix Inj) 40 mg IVP DAILY [facility] Last Admin: 10/05/17 09:04 Dose: 40 mg - Labs Labs: 10/04/17 06:27 10/04/17 06:27
--- NOTE | 2017-10-05 15:00 | CP.PCM.PCO ---
Physician Communication Note - Physician Communication Note Physician Communication Note: Still no flatus of BM .Nut no vomiting or abdominal pain. Will try dulcolax
--- NOTE | 2017-10-05 16:19 | CARD ---
APPROVED REPORT EKG Measurement Heart [id number] <Conclusion> Sinus rhythm with premature atrial complexes with aberrant conduction Otherwise normal ECG
[2017-10-05] MEDS: Vancomycin 1 gm/NS 200 ml 1 GM/200 ML BAG IVPB SCH (22:38)
[2017-10-06] MEDS: Piperacillin/Tazobact 3.375 GM in Sodium Chloride 100 ML IVPB SCH ×4 (00:50→17:58)
[2017-10-06] MEDS: Potassium Chloride 20 MEQ in Dextrose 5%/0.9% NS 1,000 ML IV SCH ×2 (00:54→12:34)
[2017-10-06] MEDS: Albuterol-Ipratrop 3 mg / 0.5 (3 ml) UD INH SCH ×4 (01:29→19:39)
--- NOTE | 2017-10-06 01:54 | PN ---
DATE: 10/05/2017 SUBJECTIVE: Patient is seen today, 10/05/2017. She still has abdominal pain and patient did not pass gas. PHYSICAL EXAMINATION: VITAL SIGNS: Blood pressure Is 124/77, temperature 97.9, respiratory rate 20 and pulse 78. HEENT: Pupils equal, reactive to light. Normal-appearing mucosa of the conjunctivae, oropharynx, and nasal membrane mucosa. NECK: Supple. No JVD. No carotid bruit. No lymph node. No thyromegaly. CHEST AND LUNGS: Bilateral symmetrical expansion. Good air exchange. No rales, no rhonchi. CARDIOVASCULAR SYSTEM: PMI not localized. S1, S2. No additional sounds. ABDOMEN: Normoactive bowel sounds. No tenderness. No organomegaly. No masses. EXTREMITIES: No cyanosis, no clubbing, no edema. CENTRAL NERVOUS SYSTEM: Alert, awake, oriented x2 and no neurological deficit could be appreciated. ASSESSMENT: Intestinal obstruction, history of chronic obstructive pulmonary disease, hypertension, PLAN: Follow up Surgical recommendations. Continue current IV antibiotics, repeat blood work, monitor electrolytes. Frankie Metzger MD
[2017-10-06] MEDS: metroNIDAZOLE IV 500 mg/100 ml 500 MG/100 ML BAG IVPB SCH ×3 (06:27→21:20)
[2017-10-06] MEDS: MethylPREDNISolone 40 mg Vial IV SCH ×3 (06:31→21:52)
[2017-10-06 08:34] LABS: HEMOGLOBIN 8.2 g/dL (11.0-16.0); LYMPH # 0.5 K/uL (1.0-4.3); LYMPH % 3.3 % (20.0-40.0); MEAN CORPUSCULAR HEMOGLOBIN 19.3 pg (27.0-31.0); MEAN CORPUSCULAR HGB CONC 30.7 g/dL (33.0-37.0); MEAN PLATELET VOLUME 11.9 fL (7.2-11.7); MONO # 1.5 K/uL (0.0-0.8); MONO % 10.3 % (0.0-10.0); NEUT # 12.6 K/uL (1.8-7.0); NEUT % 86.4 % (50.0-75.0); NRBC % 0.1 % (0.0-2.0); PLATELET COUNT 248 K/uL (130-400); RBC 4.24 Mil/uL (3.80-5.20); RED CELL DISTRIBUTION WIDTH 16.3 % (11.5-14.5); WHITE BLOOD COUNT 14.6 K/uL (4.8-10.8)
[2017-10-06 08:51] LABS: ALB/GLOB RATIO 1.4 (1.0-2.1); ALT/SGPT 22 U/L (9-52); AST/SGOT 18 U/L (14-36); BLOOD UREA NITROGEN 40 mg/dL (7-17); CALCIUM 8.5 mg/dl (8.6-10.4); GFR AFRICAN-AMERICAN > 60; GFR NON-AFRICAN AMERICAN > 60
--- NOTE | 2017-10-06 09:00 | CP.PCM.PN ---
Subjective - Date & Time of Evaluation Date of Evaluation: 10/06/17 Time of Evaluation: 07:10 - Subjective Subjective: General Surgery Pt S&E, NAEO. +flatus and small BM overnight, Large BM this morning. Hungry. Ambulating. Objective - Vital Signs/Intake and Output Vital Signs (last 24 hours): Temp Pulse Resp BP Pulse Ox 97.4 F L 82 20 126/86 100 10/06/17 08:14 10/06/17 08:14 10/06/17 08:14 10/06/17 08:14 10/06/17 08:14 Intake and Output: 10/06/17 10/06/17 06:59 18:59 Intake Total 800 640 Balance 800 640 - Medications Medications: Current Medications Albuterol/Ipratropium (Duoneb 3 Mg/0.5 Mg (3 Ml) Ud) 3 ml INH RQ6 [facility] Last Admin: 10/06/17 01:29 Dose: 3 ml Piperacillin Sod/Tazobactam (Sod 3.375 gm/ Sodium Chloride) 100 mls @ 200 mls/ hr IVPB Q6H [facility] Last Admin: 10/06/17 06:00 Dose: 200 mls/hr Potassium Chloride 20 meq/ (Dextrose/Sodium Chloride) 1,010 mls @ 80 mls/hr IV .[id number] [facility] Last Admin: 10/06/17 00:54 Dose: 80 mls/hr Vancomycin/Sodium Chloride (Vancomycin 1 Gm/Ns 200 Ml) 1 gm in 200 mls @ 133 mls/hr IVPB Q12H [facility] Stop: 10/10/17 23:01 Last Admin: 10/05/17 22:38 Dose: 133 mls/hr Metronidazole (Flagyl) 500 mg in 100 mls @ 100 mls/hr IVPB Q8 [facility] Last Admin: 10/06/17 06:27 Dose: 100 mls/hr Methylprednisolone (Solu-Medrol) 20 mg IV Q8 [facility] Last Admin: 10/06/17 06:31 Dose: 20 mg Morphine Sulfate (Morphine) 2 mg IVP Q6 PRN PRN Reason: Pain, severe (8-10) Last Admin: 10/05/17 22:17 Dose: 2 mg Ondansetron HCl (Zofran Inj) 4 mg IVP Q6 PRN PRN Reason: Nausea/Vomiting Pantoprazole Sodium (Protonix Inj) 40 mg IVP DAILY [facility] Last Admin: 10/05/17 09:04 Dose: 40 mg - Labs Labs: 10/06/17 08:10 10/06/17 08:10 - Constitutional Appears: Non-toxic, No Acute Distress - Head Exam Head Exam: ATRAUMATIC, NORMOCEPHALIC - Eye Exam Eye Exam: EOMI. absent: Scleral icterus - Respiratory Exam Respiratory Exam: NORMAL BREATHING PATTERN. absent: Respiratory Distress - GI/Abdominal Exam GI & Abdominal Exam: Soft, Tenderness (mild in lower quadrants). absent: Distended, Firm, Guarding, Rigid, Rebound - Neurological Exam Neurological Exam: Alert, Awake, Oriented x3 - Skin Skin Exam: Dry, Warm Assessment and Plan - Assessment and Plan (Free Text) Assessment: 67F with resolving SBO Plan: No OR needed at this time Advanced to CLD, ADAT to soft Monitor bowel function D/W Dr. Tyree Arguello PGY4
[2017-10-06 09:58] LABS: HYPOCHROMIC SLIGHT; LYMPHOCYTE 4 % (20-40); MONOCYTE 6 % (0-10); NEUTROPHIL 90 % (50-75); PLATELET ESTIMATE NORMAL (NORMAL); POLYCHROMIC SLIGHT; TOTAL CELLS COUNTED 100
[2017-10-06 09:59] LABS: LARGE PLATELETS PRESENT; TOXIC GRANULATION PRESENT
[2017-10-06 10:00] LABS: ANISOCYTOSIS SLIGHT; GIANT PLATELETS PRESENT; OVALOCYTES SLIGHT; POIKILOCYTOSIS SLIGHT; SCHISTOCYTES SLIGHT; TEARDROP CELLS SLIGHT
[2017-10-06 10:01] LABS: PLATELET CLUMPS PRESENT
[2017-10-06] MEDS: Vancomycin 1 gm/NS 200 ml 1 GM/200 ML BAG IVPB SCH ×2 (10:30→22:10)
--- NOTE | 2017-10-06 13:38 | CP.PCM.CON ---
History of Present Illness - History of Present Illness History of Present Illness: INFECTIOUS DISEASE CONSULT; PATIENT SEEN. RADIOLOGY/LABS REVIEWED. SURGICAL CONSULTS NOTED. CONSULTATION DICTATED. DICTATION #[id number]. Past Patient History - Infectious Disease Hx of Infectious Diseases: None - Past Medical History & Family History Past Medical History?: Yes - Past Social History Smoking Status: Former Smoker - CARDIAC Hx Hypertension: Yes - PULMONARY Hx Chronic Obstructive Pulmonary Disease (COPD): Yes - NEUROLOGICAL Hx Neurological Disorder: No - HEENT Hx HEENT Problems: No - RENAL Hx Chronic Kidney Disease: No - ENDOCRINE/METABOLIC Hx Endocrine Disorders: No - HEMATOLOGICAL/ONCOLOGICAL Hx Blood Disorders: No - INTEGUMENTARY Hx Dermatological Problems: No - MUSCULOSKELETAL/RHEUMATOLOGICAL Hx Falls: No - GASTROINTESTINAL Hx Gastrointestinal Disorders: No - GENITOURINARY/GYNECOLOGICAL Hx Genitourinary Disorders: No - PSYCHIATRIC Hx Anxiety: Yes Hx Substance Use: No - SURGICAL HISTORY Hx Surgeries: Yes Hx Hysterectomy: Yes Other/Comment: Ovarian tumor removal - ANESTHESIA Hx Anesthesia: Yes Hx Anesthesia Reactions: No Hx Malignant Hyperthermia: No Meds Allergies/Adverse Reactions: Allergies Allergy/AdvReac Type Severity Reaction Status Date / Time No Known Allergies Allergy Verified 08/30/17 19:23 - Medications Medications: Current Medications Albuterol/Ipratropium (Duoneb 3 Mg/0.5 Mg (3 Ml) Ud) 3 ml INH RQ6 [facility] Last Admin: 10/06/17 09:09 Dose: Not Given Piperacillin Sod/Tazobactam (Sod 3.375 gm/ Sodium Chloride) 100 mls @ 200 mls/ hr IVPB Q6H [facility] Last Admin: 10/06/17 12:33 Dose: 200 mls/hr Potassium Chloride 20 meq/ (Dextrose/Sodium Chloride) 1,010 mls @ 80 mls/hr IV .[id number] [facility] Last Admin: 10/06/17 12:34 Dose: Not Given Vancomycin/Sodium Chloride (Vancomycin 1 Gm/Ns 200 Ml) 1 gm in 200 mls @ 133 mls/hr IVPB Q12H [facility] Stop: 10/10/17 23:01 Last Admin: 10/06/17 10:30 Dose: 133 mls/hr Metronidazole (Flagyl) 500 mg in 100 mls @ 100 mls/hr IVPB Q8 [facility] Last Admin: 10/06/17 13:20 Dose: 100 mls/hr Methylprednisolone (Solu-Medrol) 20 mg IV Q8 [facility] Last Admin: 10/06/17 13:21 Dose: 20 mg Morphine Sulfate (Morphine) 2 mg IVP Q6 PRN PRN Reason: Pain, severe (8-10) Last Admin: 10/05/17 22:17 Dose: 2 mg Ondansetron HCl (Zofran Inj) 4 mg IVP Q6 PRN PRN Reason: Nausea/Vomiting Pantoprazole Sodium (Protonix Inj) 40 mg IVP DAILY [facility] Last Admin: 10/06/17 09:31 Dose: 40 mg Results - Vital Signs Recent Vital Signs: Last Vital Signs Temp 97.4 F L 10/06/17 08:14 Pulse 82 10/06/17 08:14 Resp 20 10/06/17 08:14 BP 126/86 10/06/17 08:14 Pulse Ox 100 10/06/17 08:14 - Labs Result Diagrams: 10/06/17 08:10 10/06/17 08:10 Labs: Laboratory Results - last 24 hr 10/06/17 10/06/17 10/06/17 08:10 08:10 08:10 WBC 14.6 H RBC 4.24 Hgb 8.2 L Hct 26.7 L MCV 63.0 L MCH 19.3 L MCHC 30.7 L RDW 16.3 H Plt Count 248 MPV 11.9 H Neut % (Auto) 86.4 H Lymph % (Auto) 3.3 L [place] % (Auto) 10.3 H Eos % (Auto) 0.0 Baso % (Auto) 0.0 Neut # 12.6 H Lymph # 0.5 L [place] # 1.5 H Eos # 0.0 Baso # 0.0 Neutrophils % (Manual) 90 H Lymphocytes % (Manual) 4 L Monocytes % (Manual) 6 Toxic Granulation Present Platelet Estimate Normal Plt Clumps, EDTA Present Large Platelets Present Giant Platelets Present Polychromasia Slight Hypochromasia (manual) Slight Poikilocytosis (manual Slight Basophilic Stippling Slight Anisocytosis (manual) Slight Tear Drop Cells Slight Ovalocytes Slight Schistocytes Slight Sodium 135 Potassium 4.2 Chloride 92 L D Carbon Dioxide 37 H Anion Gap 10 BUN 40 H Creatinine 0.8 Est GFR ( Amer) > 60 Est GFR (Non-Af Amer) > 60 Random Glucose 148 H Calcium 8.5 L Total Bilirubin 0.5 AST 18 ALT 22 Alkaline Phosphatase 38 D Total Protein 5.2 L Albumin 3.0 L Globulin 2.2 Albumin/Globulin Ratio 1.4 Blood Type A POSITIVE Antibody Screen Negative
[2017-10-06] MEDS ORDERED: Bisacodyl 5mg EC Tab PO ONE (22:00)
[2017-10-07] MEDS: Piperacill/Tazo 3.375gm in Dex 3.375 GM/50 ML BAG IVPB SCH ×4 (00:20→18:00)
[2017-10-07] MEDS: Albuterol-Ipratrop 3 mg / 0.5 (3 ml) UD INH SCH ×4 (01:20→21:36)
[2017-10-07] MEDS: Potassium Chloride 20 MEQ in Dextrose 5%/0.9% NS 1,000 ML IV SCH (05:37)
[2017-10-07] MEDS: metroNIDAZOLE IV 500 mg/100 ml 500 MG/100 ML BAG IVPB SCH ×3 (07:22→21:41)
[2017-10-07 07:38] LABS: BASO % 0.1 % (0.0-2.0); EOS % 0.1 % (0.0-4.0); HEMOGLOBIN 7.1 g/dL (11.0-16.0); LYMPH # 0.7 K/uL (1.0-4.3); LYMPH % 6.7 % (20.0-40.0); MEAN CELL VOLUME 62.8 fL (81.0-99.0); MEAN CORPUSCULAR HEMOGLOBIN 19.7 pg (27.0-31.0); MEAN CORPUSCULAR HGB CONC 31.3 g/dL (33.0-37.0); MEAN PLATELET VOLUME 10.4 fL (7.2-11.7); MONO # 1.2 K/uL (0.0-0.8); MONO % 11.1 % (0.0-10.0); NEUT # 9.1 K/uL (1.8-7.0); NRBC % 0.1 % (0.0-2.0); PLATELET COUNT 192 K/uL (130-400); RBC 3.62 Mil/uL (3.80-5.20); RED CELL DISTRIBUTION WIDTH 16.8 % (11.5-14.5); WHITE BLOOD COUNT 11.1 K/uL (4.8-10.8)
[2017-10-07 08:06] LABS: BLOOD UREA NITROGEN 32 mg/dL (7-17); CALCIUM 8.2 mg/dl (8.6-10.4); GFR AFRICAN-AMERICAN > 60; GFR NON-AFRICAN AMERICAN > 60
--- NOTE | 2017-10-07 08:48 | PN ---
DATE: 10/06/2017 SUBJECTIVE: The patient is seen today, 10/06/2017. Abdominal pain is less, and the patient had no more vomiting, and she was able to pass gas. PHYSICAL EXAMINATION: VITAL SIGNS: Blood pressure is 126/86, temperature 97.4, respiratory rate 20, and pulse 82. HEENT: Pupils equal, reactive to light. Normal-appearing mucosa of the conjunctivae, oropharyngeal and nasal membrane mucosa. NECK: Supple. No JVD. No carotid bruit. No lymph node. No thyromegaly. CHEST/LUNGS: Bilateral symmetrical expansion. Good air exchange. No rales, no rhonchi. CARDIOVASCULAR: PMI not localized. S1, S2. No additional sounds. ABDOMEN: Normoactive bowel sounds. No tenderness. No organomegaly. No masses. EXTREMITIES: No cyanosis, no clubbing, no edema. CENTRAL NERVOUS SYSTEM: Alert, awake, oriented x2. No neurological deficit could be appreciated. ASSESSMENT: 1. Small bowel obstruction. 2. Status post chronic obstructive pulmonary disease exacerbation. 3. Hypertension. PLAN: We will taper down the steroids and continue current antibiotics and follow surgical recommendations. Frankie Metzger MD
[2017-10-07] MEDS: MethylPREDNISolone 40 mg Vial IV SCH ×2 (09:17→21:30)
--- NOTE | 2017-10-07 10:43 | CON ---
DATE: 10/06/2017 INFECTIOUS DISEASE CONSULTATION REQUESTED BY: Frankie Metzger MD DICTATION DONE BY: Dr. Ethan Allison REASON FOR CONSULTATION: Small bowel obstruction with severe COPD HISTORY OF PRESENT ILLNESS: The patient is a 67-year-old female with a history of multiple medical problems including severe COPD on home oxygen, hypertension, status post hysterectomy, who presented to the ER on 10/04/2017 with persistent vomiting for 3 to 4 days prior to admission. The patient also states she was severely constipated and could not move her bowels. The patient had an emergency CAT scan done that was consistent with high-grade acute small bowel obstruction with cholelithiasis and also medium colonic diverticulosis; there was no evidence of diverticulitis. Surgical consultation was obtained also and the patient was admitted after surgical consultation for further management. The patient also complained of some shortness of breath and she is on nasal cannula oxygenation at present. The patient was treated with IV Zosyn and IV vancomycin was also initiated. The patient had marked leukocytosis of WBC of 28,000 with hemoglobin of 9.9. Blood cultures reported of 10/04/2017, on admission, 2 sets out of 2 sets gram-positive cocci in clusters. Infectious Disease consultation therefore requested by PMD because of gram-positive bacteremia and small bowel obstruction. PAST MEDICAL HISTORY: As above, severe COPD, hypertension, status post hysterectomy. SOCIAL HISTORY: The patient admits to smoking previously, but has stopped smoking for a few years. Denies alcohol or substance abuse. FAMILY HISTORY: Noncontributory. MEDICATIONS: As per chart, reviewed. Presently on IV Zosyn 3.375 q. 6 hourly and vanco 1 g stat doses given in the ER and started on 1 g q. 12 hourly. PHYSICAL EXAMINATION: VITAL SIGNS: The patient presently afebrile, blood pressure 128/85, respirations 20, pulse of 77, T-max of 98.4. HEENT: Pupils equal, reactive to light and accommodation. Extraocular movements are full. Fundus is negative. Sclerae nonicteric. Conjunctiva normal. JVP not elevated. NECK: Appears to be supple. LUNGS: Bilateral symmetrical expansion, fair air entry. No rales or rhonchi. CARDIOVASCULAR SYSTEM: S1 and S2. No murmur or gallop. ABDOMEN: Slightly distended. Bowel sounds are present now and presently no tenderness except in the midepigastric region. No organomegaly. No mass is palpable. EXTREMITIES: No cyanosis, clubbing or edema. CENTRAL NERVOUS SYSTEM: No gross deficits. Moves all extremities. Reflexes are equal and symmetrical. Babinski's are downgoing. LABORATORY DATA: Today 10/06/2017, WBC has decreased to 14.8, hemoglobin is 8.2, hematocrit is 26.7, platelets 218. Creatinine 0.8, BUN of 40 from 71. Sodium has improved from 122 to 135. Blood cultures 2 sets out of 2 sets showing Staph, coagulase negative. Urine cultures positive for Staph, coagulase negative, 50,000 to 100,000 colonies per mL. IMPRESSION: 1. Gram-positive bacteremia, staphylococcus, coagulase negative, source most likely genitourinary. 2. High-grade small bowel obstruction presently resolving. 3. Severe chronic obstructive pulmonary disease. 4. Hypertension. 5. Status post hysterectomy. PLAN: Alas cultures, blood cultures are ordered, 2 sets prior to starting the vancomycin yesterday as per myself. We will continue IV vancomycin 1 g q. 12 hourly for now. Continue Zosyn 3.375 q. 6 hourly. Added Flagyl 500 mg q. 8 hourly since 10/05/2017 for anaerobic coverage. The patient has been advanced to clear liquid diet; if tolerated to advance to soft diet as noted per Surgery. Presently, no surgery contemplated as per surgical assistant's note. We will follow along with you and make recommendations as needed. Thank you very much for allowing me to participate in the care of your patient. We will follow along with you. Zoe Allison MD
--- NOTE | 2017-10-07 11:41 | PCM.SURG1 ---
Surgeon's Initial Post Op Note - Surgeon's Notes Surgeon: Bear Sheppard MD Plush Weaver: NONE Type of Anesthesia: Local Pre-Operative Diagnosis: Poor venous access Operative Findings: US showed a small but patent left basilic vein. Post-Operative Diagnosis: Poor venous access Operation Performed: Single lumen picc placement left basilic vein, 39 cm. Tip is in the SVC. Specimen/Specimens Removed: none Estimated Blood Loss: EBL {In ML}: 2 Blood Products Given: N/A Drains Used: No Drains Post-Op Condition: Fair Date of Surgery/Procedure: 10/07/17 Time of Surgery/Procedure: 11:35
--- NOTE | 2017-10-07 11:58 | US ---
Date of procedure: 10/07/2017 Procedure: Ultrasound guidance for vascular access HISTORY: Infection requiring long-term IV antibiotics TECHNIQUE: Following informed consent and procedure time-out, the patient placed supine on the interventional table and the left arm prepped and draped in the usual sterile fashion. Ultrasound showed a patent and compressible basilic vein. After the skin was anesthetized with lidocaine, the basilic vein was accessed with micro micropuncture technique using ultrasound guidance. An image documenting ultrasound guidance for vascular access was permanently saved. IMPRESSION: Ultrasound guidance for vascular access for placement of PICC.
--- NOTE | 2017-10-07 11:59 | RAD ---
PROCEDURE: Date of procedure: 10/07/2017 Procedure: 1. Placement of a left arm PICC with ultrasound and fluoroscopic guidance, CPT 77868 2. PICC tip confirmation with spot radiograph and is in the superior vena cava Medications: 1 percent lidocaine Total Fluoro time: 12.1 seconds Radiation: 3.2 MGy EBL: 3 cc HISTORY: Infection requiring long-term IV antibiotics TECHNIQUE: Following informed consent and procedure time-out, the patient placed supine on the interventional table and the left arm prepped and draped in the usual sterile fashion. Ultrasound showed a patent and compressible left basilic vein. After the skin was anesthetized with lidocaine, the basilic vein was accessed with micro micropuncture technique using ultrasound guidance. A guidewire was then advanced under fluoroscopic guidance into the superior vena cava. An image documenting ultrasound guidance for vascular access was permanently saved. The length of a single-lumen 4 [place] PICC was trimmed to 39 cm and advanced through a peel-away sheath. The PICC was position with tip of PICC confirm a spot radiograph the superior vena cava. The PICC was secured to the patient's skin. The PICC was flushed. A biopatch and sterile dressing was applied. IMPRESSION: Placement of a single-lumen 4 [place] PICC left basilic vein trimmed to 39 cm. The tip of the PICC is confirmed with spot radiograph and is in the superior vena cava.
[2017-10-07] MEDS: Vancomycin 1 gm/NS 200 ml 1 GM/200 ML BAG IVPB SCH ×2 (12:00→22:21)
[2017-10-07 12:53] LABS: BANDS 4 % (0-2); LYMPHOCYTE 7 % (20-40); METAMYELOCYTE 1 % (0-0); MONOCYTE 16 % (0-10); NEUTROPHIL 72 % (50-75); PLATELET ESTIMATE NORMAL (NORMAL); TOTAL CELLS COUNTED 100
[2017-10-07 12:54] LABS: ANISOCYTOSIS SLIGHT; HYPOCHROMIC SLIGHT; LARGE PLATELETS PRESENT; MICROCYTOSIS SLIGHT; POLYCHROMIC SLIGHT; TOXIC GRANULATION PRESENT
[2017-10-07 12:55] LABS: GIANT PLATELETS PRESENT
--- NOTE | 2017-10-07 13:44 | CP.PCM.PN ---
Subjective - Date & Time of Evaluation Date of Evaluation: 10/07/17 Time of Evaluation: 13:44 - Subjective Subjective: CHIEF COMPLAINTS TODAY : afebrile, s/p LEFT basilic vein PICC line. getting blood transfusion. States feeling weak.denies abdominal pain Did move her bowels. Denies any nausea vomiting. ROS. HEENT : N. Resp : no cough , NO pleuritic CP ,or hemoptysis Cardio : No anginal CP, PND, orthopnea, palpitation GI : No abd.pain, n/v ,diarrhea or GI bleeding . REPAIRER : No headache, vertigo, focal deficit. Musculoskel : No joint swelling , Derm : No rash Psych : Normal affect. Ext : No swelling ,calf pain PE. Pt. is alert awake in no distress. V.S As noted in the chart Head ,ear nose,throat and eyes : Normal. Neck : Supple with normal carotids. Lungs: diminished breath sounds bases. Heart : S1 & S2 IRREGULAR . No murmur. Abd : Soft non tender with normal bowel sounds. Neuro : Moves all ext. with no localized deficit. Ext : No edema with intact pulses.Non tender calves Derm : No rashes or decubitus ulcer. LABS/RADIOLOGY: reviewed. RENAL FUNCTION IS STABLE. Objective - Vital Signs/Intake and Output Vital Signs (last 24 hours): Temp Pulse Resp BP Pulse Ox 98.1 F 77 20 134/69 97 10/07/17 08:12 10/07/17 08:12 10/07/17 08:12 10/07/17 08:12 10/07/17 08:12 Intake and Output: 10/07/17 10/07/17 06:59 18:59 Intake Total 1140 640 Balance 1140 640 - Medications Medications: Current Medications Albuterol/Ipratropium (Duoneb 3 Mg/0.5 Mg (3 Ml) Ud) 3 ml INH RQ6 [facility] Last Admin: 10/07/17 08:55 Dose: 3 ml Alprazolam (Xanax) 0.5 mg PO DAILY [facility] Last Admin: 10/07/17 09:46 Dose: 0.5 mg Vancomycin/Sodium Chloride (Vancomycin 1 Gm/Ns 200 Ml) 1 gm in 200 mls @ 133 mls/hr IVPB Q12H [facility] Stop: 10/10/17 23:01 Last Admin: 10/07/17 12:00 Dose: 133 mls/hr Metronidazole (Flagyl) 500 mg in 100 mls @ 100 mls/hr IVPB Q8 [facility] Last Admin: 10/07/17 07:22 Dose: 100 mls/hr Piperacillin Sod/Tazobactam Sod (Zosyn 3.375 Gm Iv Premix) 3.375 gm in 50 mls @ 200 mls/hr IVPB Q6H [facility] Last Admin: 10/07/17 12:07 Dose: 200 mls/hr Methylprednisolone (Solu-Medrol) 20 mg IV Q12 [facility] Last Admin: 10/07/17 09:17 Dose: 20 mg Morphine Sulfate (Morphine) 2 mg IVP Q6 PRN PRN Reason: Pain, severe (8-10) Last Admin: 10/05/17 22:17 Dose: 2 mg Ondansetron HCl (Zofran Inj) 4 mg IVP Q6 PRN PRN Reason: Nausea/Vomiting Pantoprazole Sodium (Protonix Inj) 40 mg IVP DAILY [facility] Last Admin: 10/07/17 09:17 Dose: 40 mg - Labs Labs: 10/07/17 07:12 10/07/17 07:12 - Constitutional Appears: No Acute Distress - Head Exam Head Exam: NORMAL INSPECTION Assessment and Plan (1) Bacteremia due to coagulase-negative Staphylococcus Status: Acute (2) SBO (small bowel obstruction) Status: Acute (3) Anemia Status: Acute (4) Anxiety Status: Acute (5) COPD (chronic obstructive pulmonary disease) Status: Acute - Assessment and Plan (Free Text) Plan: PLAN; CONTINUE iv zOSYN 3.375 EVERY 6 HOURLY. CONTINUE iv VANCOMYCIN 1 G EVERY 12 HOURLY.10/05/17 CONTINUE iv fLAGYL 500 EVERY 8 HOURLY.10/05/17 PATIENT PRESENTLY GETTING BLOOD TRANSFUSION HEMOGLOBIN DROPPED TO 7.1/ HEMATOCRIT 22.7. FOLLOW-UP VANCO TROUGH LEVEL IN A.M.AND KEEP BETWEEN 10 AND 20. fOLLOW-UP REPEAT ua URINE CULTURES AND BLOOD CULTURES. GI WORKUP FOR ANEMIA.
--- NOTE | 2017-10-07 19:33 | CP.PCM.PN ---
Subjective - Date & Time of Evaluation Date of Evaluation: 10/07/17 Time of Evaluation: 07:10 - Subjective Subjective: General Surgery Note for Dr. Clements Patient seen and examined at bedside. No acute event overnight. Patient has had BMs today and yesterday. Patient is feeling much better. Patient is toleerating diet. Objective - Vital Signs/Intake and Output Vital Signs (last 24 hours): Temp Pulse Resp BP Pulse Ox 97.8 F 86 20 140/85 100 10/07/17 16:00 10/07/17 16:00 10/07/17 16:00 10/07/17 16:00 10/07/17 16:00 Intake and Output: 10/07/17 10/08/17 18:59 06:59 Intake Total 2165 Balance 2165 - Medications Medications: Current Medications Albuterol/Ipratropium (Duoneb 3 Mg/0.5 Mg (3 Ml) Ud) 3 ml INH RQ6 [facility] Last Admin: 10/07/17 08:55 Dose: 3 ml Alprazolam (Xanax) 0.5 mg PO DAILY [facility] Last Admin: 10/07/17 09:46 Dose: 0.5 mg Vancomycin/Sodium Chloride (Vancomycin 1 Gm/Ns 200 Ml) 1 gm in 200 mls @ 133 mls/hr IVPB Q12H [facility] Stop: 10/10/17 23:01 Last Admin: 10/07/17 12:00 Dose: 133 mls/hr Metronidazole (Flagyl) 500 mg in 100 mls @ 100 mls/hr IVPB Q8 [facility] Last Admin: 10/07/17 14:56 Dose: Not Given Piperacillin Sod/Tazobactam Sod (Zosyn 3.375 Gm Iv Premix) 3.375 gm in 50 mls @ 200 mls/hr IVPB Q6H [facility] Last Admin: 10/07/17 12:07 Dose: 200 mls/hr Methylprednisolone (Solu-Medrol) 20 mg IV Q12 [facility] Last Admin: 10/07/17 09:17 Dose: 20 mg Morphine Sulfate (Morphine) 2 mg IVP Q6 PRN PRN Reason: Pain, severe (8-10) Last Admin: 10/05/17 22:17 Dose: 2 mg Ondansetron HCl (Zofran Inj) 4 mg IVP Q6 PRN PRN Reason: Nausea/Vomiting Pantoprazole Sodium (Protonix Inj) 40 mg IVP DAILY [facility] Last Admin: 10/07/17 09:17 Dose: 40 mg - Labs Labs: 10/07/17 07:12 10/07/17 07:12 - Constitutional Appears: No Acute Distress - Head Exam Head Exam: ATRAUMATIC, NORMOCEPHALIC - Eye Exam Eye Exam: Normal appearance - ENT Exam ENT Exam: Mucous Membranes Moist - Respiratory Exam Respiratory Exam: NORMAL BREATHING PATTERN - Cardiovascular Exam Cardiovascular Exam: REGULAR RHYTHM - GI/Abdominal Exam GI & Abdominal Exam: Soft, Normal Bowel Sounds. absent: Distended, Firm, Guarding, Rigid, Tenderness, Rebound - Extremities Exam Extremities Exam: Normal Capillary Refill - Back Exam Back Exam: absent: CVA tenderness (L), CVA tenderness (R) - Neurological Exam Neurological Exam: Alert, Awake, Oriented x3 - Psychiatric Exam Psychiatric exam: Normal Affect, Normal Mood - Skin Skin Exam: Dry, Intact, Normal Color, Warm Assessment and Plan - Assessment and Plan (Free Text) Plan: 67F with resolving SBO Soft diet ADAT No surgical intervention needed at this time Surgery signing off. reconsult as needed D/W Dr. Tyree Morton PGY1
--- NOTE | 2017-10-07 23:08 | PN ---
DATE: 10/07/2017 DAILY PROGRESS NOTE SUBJECTIVE: Patient is seen today, 10/07/2017. She was able to move bowel. Blood work today showed that the hemoglobin dropped to 7.1. PHYSICAL EXAMINATION: VITAL SIGNS: Blood pressure 140/85, temperature 97.8, respiratory rate 20 and pulse 86. HEENT: Pale mucosa of the conjunctivae. NECK: Supple. No JVD. No carotid bruit. No lymph node. No thyromegaly. CHEST AND LUNGS: Bilateral symmetrical expansion. Good air exchange. No rales, no rhonchi. CARDIOVASCULAR SYSTEM: PMI not localized. S1, S2. No additional sounds. ABDOMEN: Normoactive bowel sounds. No tenderness. No organomegaly. No masses. EXTREMITIES: No cyanosis, no clubbing, no edema. CENTRAL NERVOUS SYSTEM: Alert, awake, oriented x2. No neurological deficit could be appreciated. ASSESSMENT: 1. Anemia of acute blood loss. 2. Status post intestinal obstruction. 3. Chronic obstructive pulmonary disease. 4. Hypertension. PLAN: Check stool for occult blood and we will transfuse 1 unit of packed RBCs and monitor hemoglobin and hematocrit. Continue current antibiotics treating the bacteremia. Follow ID and Surgical consult. Frankie Metzger MD
[2017-10-08] MEDS: Piperacill/Tazo 3.375gm in Dex 3.375 GM/50 ML BAG IVPB SCH ×4 (00:19→17:58)
[2017-10-08] MEDS: Albuterol-Ipratrop 3 mg / 0.5 (3 ml) UD INH SCH ×4 (01:51→21:04)
[2017-10-08 03:32] LABS: SQUAMOUS EPITHIAL 4 /hpf (0-5); URINE BACTERIA RARE (<OCC); URINE BILIRUBIN NEGATIVE (NEGATIVE); URINE BLOOD NEGATIVE (NEGATIVE); URINE CALCIUM OXALATE CRYSTALS FEW /hpf (<OCC); URINE CLARITY Clear (Clear); URINE COLOR Yellow (YELLOW); URINE GLUCOSE (UA) NORMAL (Normal); URINE LEUKOCYTE ESTERASE TRACE Leu/uL (Negative); URINE NITRATE NEGATIVE (NEGATIVE); URINE PROTEIN NEGATIVE (NEGATIVE); URINE UROBILINOGEN NORMAL mg/dL (0.2-1.0)
[2017-10-08] MEDS: metroNIDAZOLE IV 500 mg/100 ml 500 MG/100 ML BAG IVPB SCH ×3 (05:33→21:40)
[2017-10-08 06:37] LABS: BASO % 0.1 % (0.0-2.0); EOS # 0.1 K/uL (0.0-0.7); EOS % 0.4 % (0.0-4.0); HEMOGLOBIN 8.6 g/dL (11.0-16.0); LYMPH # 1.3 K/uL (1.0-4.3); LYMPH % 9.1 % (20.0-40.0); MEAN CELL VOLUME 66.2 fL (81.0-99.0); MEAN CORPUSCULAR HEMOGLOBIN 21.2 pg (27.0-31.0); MEAN CORPUSCULAR HGB CONC 32.1 g/dL (33.0-37.0); MONO # 1.3 K/uL (0.0-0.8); NEUT # 11.6 K/uL (1.8-7.0); NEUT % 81.4 % (50.0-75.0); NRBC % 0.1 % (0.0-2.0); PLATELET COUNT 221 K/uL (130-400); RBC 4.05 Mil/uL (3.80-5.20); RED CELL DISTRIBUTION WIDTH 20.4 % (11.5-14.5); WHITE BLOOD COUNT 14.3 K/uL (4.8-10.8)
[2017-10-08 09:36] LABS: ANISOCYTOSIS MODERATE; BANDS 2 % (0-2); LYMPHOCYTE 9 % (20-40); MICROCYTOSIS SLIGHT; MONOCYTE 7 % (0-10); NEUTROPHIL 82 % (50-75); PLATELET ESTIMATE NORMAL (NORMAL); POIKILOCYTOSIS SLIGHT; TOTAL CELLS COUNTED 100
[2017-10-08 09:37] LABS: GIANT PLATELETS PRESENT; HYPOCHROMIC SLIGHT; LARGE PLATELETS PRESENT; OVALOCYTES SLIGHT; PLATELET CLUMPS PRESENT; POLYCHROMIC SLIGHT; TOXIC GRANULATION PRESENT
[2017-10-08] MEDS: MethylPREDNISolone 40 mg Vial IV SCH ×2 (11:26→21:41)
[2017-10-08] MEDS: Vancomycin 1 gm/NS 200 ml 1 GM/200 ML BAG IVPB SCH ×2 (11:32→22:43)
--- NOTE | 2017-10-08 21:21 | CP.PCM.PN ---
Subjective - Date & Time of Evaluation Date of Evaluation: 10/08/17 Time of Evaluation: 21:21 - Subjective Subjective: CHIEF COMPLAINTS TODAY : afebrile, Did move her bowels. Denies any nausea vomiting. C/O ABDOMINAL DISCOMFORT AFTER EATING TODAY ROS. HEENT : N. Resp : no cough , NO pleuritic CP ,or hemoptysis Cardio : No anginal CP, PND, orthopnea, palpitation GI : ABDOMINAL DISCOMFORT +VE, NO n/v ,OR GI bleeding . PUMP HOUSE ENGINEER : No headache, vertigo, focal deficit. Musculoskel : No joint swelling , Derm : No rash Psych : Normal affect. Ext : No swelling ,calf pain PE. Pt. is alert awake in no distress. V.S As noted in the chart Head ,ear nose,throat and eyes : Normal. Neck : Supple with normal carotids. Lungs: diminished breath sounds bases. Heart : S1 & S2 IRREGULAR . No murmur. Abd : Soft non tender with normal bowel sounds. Neuro : Moves all ext. with no localized deficit. Ext : No edema with intact pulses.Non tender calves Derm : No rashes or decubitus ulcer. LABS/RADIOLOGY: reviewed. Objective - Vital Signs/Intake and Output Vital Signs (last 24 hours): Temp Pulse Resp BP Pulse Ox 97.4 F L 72 20 155/88 H 100 10/08/17 08:00 10/08/17 08:00 10/08/17 08:00 10/08/17 08:00 10/08/17 08:00 - Medications Medications: Current Medications Albuterol/Ipratropium (Duoneb 3 Mg/0.5 Mg (3 Ml) Ud) 3 ml INH RQ6 [facility] Last Admin: 10/08/17 21:04 Dose: 3 ml Alprazolam (Xanax) 0.5 mg PO DAILY [facility] Last Admin: 10/08/17 11:27 Dose: 0.5 mg Alprazolam (Xanax) 0.25 mg PO HS PRN PRN Reason: Anxiety Stop: 10/15/17 17:25 Vancomycin/Sodium Chloride (Vancomycin 1 Gm/Ns 200 Ml) 1 gm in 200 mls @ 133 mls/hr IVPB Q12H [facility] Stop: 10/10/17 23:01 Last Admin: 10/08/17 11:32 Dose: 133 mls/hr Metronidazole (Flagyl) 500 mg in 100 mls @ 100 mls/hr IVPB Q8 [facility] Last Admin: 10/08/17 14:22 Dose: 100 mls/hr Piperacillin Sod/Tazobactam Sod (Zosyn 3.375 Gm Iv Premix) 3.375 gm in 50 mls @ 200 mls/hr IVPB Q6H [facility] Last Admin: 10/08/17 17:58 Dose: 200 mls/hr Methylprednisolone (Solu-Medrol) 20 mg IV Q12 [facility] Last Admin: 10/08/17 11:26 Dose: 20 mg Morphine Sulfate (Morphine) 2 mg IVP Q6 PRN PRN Reason: Pain, severe (8-10) Last Admin: 10/05/17 22:17 Dose: 2 mg Ondansetron HCl (Zofran Inj) 4 mg IVP Q6 PRN PRN Reason: Nausea/Vomiting Pantoprazole Sodium (Protonix Inj) 40 mg IVP DAILY [facility] Last Admin: 10/08/17 11:25 Dose: 40 mg - Labs Labs: 10/08/17 06:22 10/07/17 07:12 Assessment and Plan (1) Bacteremia due to coagulase-negative Staphylococcus Status: Acute (2) SBO (small bowel obstruction) Status: Acute (3) Anemia Status: Acute (4) Anxiety Status: Acute (5) COPD (chronic obstructive pulmonary disease) Status: Acute - Assessment and Plan (Free Text) Plan: PLAN; CONTINUE iv zOSYN 3.375 EVERY 6 HOURLY. CONTINUE iv VANCOMYCIN 1 G EVERY 12 HOURLY.10/05/17 CONTINUE iv fLAGYL 500 EVERY 8 HOURLY.10/05/17. SURGERY FOLLOW-UP NOTED. ADVANCING DIET TOLERATED. F/U REPEAT CULTURES -VE X48 HOURS. CONTINUE iv ANTIBIOTICS INCLUDING VANCOMYCIN X TOTAL OF 10DAYS ( DAY 4 ) IN VIEW OF STAPH COAGULASE NEGATIVE BACTEREMIA AND UROSEPSIS. PULMONARY TOILET.
[2017-10-09] MEDS: Piperacill/Tazo 3.375gm in Dex 3.375 GM/50 ML BAG IVPB SCH ×2 (00:50→05:36)
[2017-10-09] MEDS: Albuterol-Ipratrop 3 mg / 0.5 (3 ml) UD INH SCH ×4 (01:58→19:21)
--- NOTE | 2017-10-09 04:59 | PN ---
DATE: 10/08/2017 SUBJECTIVE: The patient is seen today, 10/08/2017. She is not in any cardiopulmonary distress, status post 1 unit of packed RBC transfusion. OBJECTIVE: VITAL SIGNS: Blood pressure 128/78, temperature 97.6, respiratory rate 20, and pulse 80. HEENT: Pupils equal, reactive to light. Normal-appearing mucosa of the conjunctivae, oropharynx and nasal membrane mucosa. NECK: Supple. No JVD. No carotid bruit. No lymph node. No thyromegaly. CHEST/LUNGS: Bilateral symmetrical expansion. Good air exchange. No rales. The patient has bilateral scattered rhonchi. CARDIOVASCULAR SYSTEM: PMI not localized. S1, S2. No additional sounds. ABDOMEN: Normoactive bowel sounds. No tenderness. No organomegaly. No masses. EXTREMITIES: No cyanosis, no clubbing, no edema. HEALTH FACILITIES SURVEYOR: Alert, awake, oriented x2. No neurological deficit could be appreciated. ASSESSMENT: 1. Anemia with possible gastrointestinal blood loss. 2. Status post small bowel obstruction. 3. Exacerbation of chronic obstructive pulmonary disease. 4. Bacteremia. PLAN: Continue current antibiotics as per ID. We will monitor hemoglobin and hematocrit. The patient is currently not stable for any colonoscopy or other GI investigation. Frankie Metzger MD
[2017-10-09] MEDS: metroNIDAZOLE IV 500 mg/100 ml 500 MG/100 ML BAG IVPB SCH ×3 (05:43→21:30)
[2017-10-09] MEDS: MethylPREDNISolone 40 mg Vial IV SCH ×2 (08:45→21:29)
[2017-10-09] MEDS: Vancomycin 1 gm/NS 200 ml 1 GM/200 ML BAG IVPB SCH ×2 (11:00→22:14)
[2017-10-09] MEDS: Piperacillin/Tazobact 3.375 GM in Sodium Chloride 0.9% 100 ML IVPB SCH (17:25)
[2017-10-09 20:02] LABS: CK-MB 0.62 ng/mL (0.0-3.38)
[2017-10-10] MEDS: Piperacillin/Tazobact 3.375 GM in Sodium Chloride 0.9% 100 ML IVPB SCH ×4 (00:27→17:38)
[2017-10-10] MEDS: Albuterol-Ipratrop 3 mg / 0.5 (3 ml) UD INH SCH ×3 (01:49→19:14)
[2017-10-10] MEDS: metroNIDAZOLE IV 500 mg/100 ml 500 MG/100 ML BAG IVPB SCH (05:16)
--- NOTE | 2017-10-10 08:09 | RAD ---
Chest x-ray single frontal view History: Chest pain. Comparison: 10/04/2017 Findings: Hyperinflation suggestive for COPD and or emphysematous changes. Bibasilar airspace opacities with small bilateral pleural effusions. Right hilar prominence. Mild cardiomegaly. Degenerative changes in the spine and shoulders. Impression: Hyperinflation suggestive for COPD and or emphysematous changes. Bibasilar airspace opacities with small bilateral pleural effusions. Right hilar prominence. Mild cardiomegaly.
[2017-10-10] MEDS: MethylPREDNISolone 40 mg Vial IV SCH ×2 (11:16→22:01)
[2017-10-10] MEDS: Vancomycin 1 gm/NS 200 ml 1 GM/200 ML BAG IVPB SCH (11:17)
[2017-10-10 11:20] LABS: BASO % 0.1 % (0.0-2.0); EOS # 0.1 K/uL (0.0-0.7); EOS % 0.5 % (0.0-4.0); HEMOGLOBIN 8.6 g/dL (11.0-16.0); LYMPH # 0.5 K/uL (1.0-4.3); LYMPH % 2.9 % (20.0-40.0); MEAN CELL VOLUME 67.8 fL (81.0-99.0); MEAN CORPUSCULAR HEMOGLOBIN 20.9 pg (27.0-31.0); MEAN CORPUSCULAR HGB CONC 30.9 g/dL (33.0-37.0); MEAN PLATELET VOLUME 10.8 fL (7.2-11.7); MONO # 0.5 K/uL (0.0-0.8); MONO % 3.4 % (0.0-10.0); NEUT % 93.1 % (50.0-75.0); PLATELET COUNT 183 K/uL (130-400); RBC 4.12 Mil/uL (3.80-5.20); WHITE BLOOD COUNT 16.1 K/uL (4.8-10.8)
[2017-10-10 11:50] LABS: ANISOCYTOSIS MODERATE; BANDS 6 % (0-2); LYMPHOCYTE 2 % (20-40); MONOCYTE 1 % (0-10); NEUTROPHIL 91 % (50-75); PLATELET ESTIMATE NORMAL (NORMAL); TOTAL CELLS COUNTED 100
[2017-10-10 11:51] LABS: GIANT PLATELETS PRESENT; HYPOCHROMIC MODERATE; LARGE PLATELETS PRESENT; OVALOCYTES SLIGHT
[2017-10-10 11:52] LABS: MICROCYTOSIS MODERATE
[2017-10-10] MEDS ORDERED: metroNIDAZOLE IV 500 mg/100 ml 500 MG/100 ML BAG IVPB SCH (14:00)
--- NOTE | 2017-10-10 17:57 | CP.PCM.PN ---
Subjective - Date & Time of Evaluation Date of Evaluation: 10/10/17 Time of Evaluation: 17:57 - Subjective Subjective: CHIEF COMPLAINTS TODAY : afebrile, LESS SHORT OF BREATH NO NEW COMPLAINTS. INCREASING LEUKOCYTOSIS ? CANDIDUREA ROS. HEENT : N. Resp : no cough , NO pleuritic CP ,or hemoptysis Cardio : No anginal CP, PND, orthopnea, palpitation GI : ABDOMINAL DISCOMFORT +VE, NO n/v ,OR GI bleeding . PRODUCT MARKETING COORDINATOR : No headache, vertigo, focal deficit. Musculoskel : No joint swelling , Derm : No rash Psych : Normal affect. Ext : No swelling ,calf pain PE. Pt. is alert awake in no distress. V.S As noted in the chart Head ,ear nose,throat and eyes : Normal. Neck : Supple with normal carotids. Lungs: diminished breath sounds bases. Heart : S1 & S2 IRREGULAR . No murmur. Abd : Soft non tender with normal bowel sounds. Neuro : Moves all ext. with no localized deficit. Ext : No edema with intact pulses.Non tender calves Derm : No rashes or decubitus ulcer. LABS/RADIOLOGY: reviewed Objective - Vital Signs/Intake and Output Vital Signs (last 24 hours): Temp Pulse Resp BP Pulse Ox 99.7 F H 110 H 20 156/87 H 100 10/10/17 16:00 10/10/17 16:00 10/10/17 16:00 10/10/17 16:30 10/10/17 16:00 Intake and Output: 10/10/17 10/10/17 06:59 18:59 Intake Total 1100 1300 Balance 1100 1300 - Medications Medications: Current Medications Albuterol/Ipratropium (Duoneb 3 Mg/0.5 Mg (3 Ml) Ud) 3 ml INH RQ4 [facility] Last Admin: 10/10/17 15:39 Dose: 3 ml Alprazolam (Xanax) 0.5 mg PO DAILY [facility] Last Admin: 10/10/17 11:16 Dose: 0.5 mg Alprazolam (Xanax) 0.25 mg PO HS PRN PRN Reason: Anxiety Stop: 10/15/17 17:25 Last Admin: 10/09/17 21:40 Dose: 0.25 mg Vancomycin/Sodium Chloride (Vancomycin 1 Gm/Ns 200 Ml) 1 gm in 200 mls @ 133 mls/hr IVPB Q12H [facility] Stop: 10/10/17 23:01 Last Admin: 10/10/17 11:17 Dose: 133 mls/hr Piperacillin Sod/Tazobactam (Sod 3.375 gm/ Sodium Chloride) 100 mls @ 200 mls/ hr IVPB Q6H [facility] Last Admin: 10/10/17 17:38 Dose: 200 mls/hr Methylprednisolone (Solu-Medrol) 20 mg IV Q12 [facility] Last Admin: 10/10/17 11:16 Dose: 20 mg Metronidazole (Flagyl) 250 mg PO Q6 [facility] Last Admin: 10/10/17 17:39 Dose: 250 mg Ondansetron HCl (Zofran Inj) 4 mg IVP Q6 PRN PRN Reason: Nausea/Vomiting Pantoprazole Sodium (Protonix Ec Tab) 40 mg PO DAILY [facility] Zolpidem Tartrate (Ambien) 5 mg PO HS ONE Stop: 10/10/17 22:01 - Labs Labs: 10/10/17 11:09 10/07/17 07:12 - Constitutional Appears: No Acute Distress - Head Exam Head Exam: NORMAL INSPECTION - Eye Exam Eye Exam: EOMI, PERRL - ENT Exam ENT Exam: Normal Oropharynx - Neck Exam Neck Exam: Normal Inspection - Respiratory Exam Respiratory Exam: Decreased Breath Sounds, Wheezes (LESS WHEEZE) - Cardiovascular Exam Cardiovascular Exam: REGULAR RHYTHM, +S1, +S2 - GI/Abdominal Exam GI & Abdominal Exam: Soft, Normal Bowel Sounds. absent: Tenderness - Extremities Exam Extremities Exam: Normal Capillary Refill. absent: Calf Tenderness, Pedal Edema - Neurological Exam Neurological Exam: Awake, CN II-XII Intact, Oriented x3 - Psychiatric Exam Psychiatric exam: Anxious - Skin Skin Exam: Warm Assessment and Plan (1) Bacteremia due to coagulase-negative Staphylococcus Status: Acute (2) SBO (small bowel obstruction) Status: Acute (3) Anemia Status: Acute (4) Anxiety Status: Acute (5) COPD (chronic obstructive pulmonary disease) Status: Acute - Assessment and Plan (Free Text) Plan: PLAN; CONTINUE iv zOSYN 3.375 EVERY 6 HOURLY. CONTINUE iv VANCOMYCIN 1 G EVERY 12 HOURLY.10/05/17 CONTINUE iv fLAGYL 500 EVERY 8 HOURLY.10/05/17. REPEAT CULTURES -VE X48 HOURS. CONTINUE iv ANTIBIOTICS INCLUDING VANCOMYCIN X TOTAL OF 10DAYS ( DAY 6 ) IN VIEW OF STAPH COAGULASE NEGATIVE BACTEREMIA AND UROSEPSIS. REPEAT ua AND URINE CULTURE /? CANDIDURIA IN THE OFF STEROIDS AND ANTIBIOTICS. CASE DISCUSSED WITH NURSE PRACTITIONER TO HOLD DISCHARGE FOR 1 MORE DAY AND OBSERVE INCREASING LEUKOCYTOSIS AND CULTURES. PULMONARY TOILET.
[2017-10-10 21:54] LABS: SQUAMOUS EPITHIAL 6 /hpf (0-5); URINE BACTERIA OCC (<OCC); URINE BILIRUBIN NEGATIVE (NEGATIVE); URINE BLOOD 2+ (NEGATIVE); URINE CALCIUM OXALATE CRYSTALS FEW /hpf (<OCC); URINE CLARITY Hazy (Clear); URINE COLOR Amber (YELLOW); URINE GLUCOSE (UA) NORMAL (Normal); URINE LEUKOCYTE ESTERASE 3+ Leu/uL (Negative); URINE NITRATE NEGATIVE (NEGATIVE); URINE PROTEIN 1+ mg/dL (NEGATIVE); URINE UROBILINOGEN NORMAL mg/dL (0.2-1.0)
[2017-10-11] MEDS ORDERED: Propofol 10 mg/ml 1,000 MG/100 ML VIAL IV PRN (00:26)
--- NOTE | 2017-10-11 00:41 | CP.PCM.CON ---
History of Present Illness - History of Present Illness History of Present Illness: PMD: Frankie Metzger MD Reason for Consult: Critical care management Chief Complaint: Respiratory Distress/Hypotension The patient was seen and examined in the ICU HPI: The hx is obtained from Discussion with the Hospitalist Dr Spence, president financial institution and after review of the medical records. This is a 67 years old female with hx of HTN, Cholelithiasis and COPD on home oxygen. She was admitted on 10/04/17 and diagnosed with Small Bowel Obstruction. This was treated conservatively with no surgery and she apparently recovered. Tonight approximately 23:27 a Rapid Response Team was called when she began having labored breathing, becoming hypoxic and with Hypotension a BP of 69/39mmHg. Anesthesia was called and she was intubated immediately and transferred to the ICU. Dr Metzger recommended a CT angiogran to investigate for a Pulmonary Embolism after he was called by the resident. PMH: COPD on home Oxygen; HTN; Cholelithiasis; Diverticulosis; Anxiety PSH: HJysterectomy; Left Basilic Vein PICC SH: No illegal drug use; No Alcohol; Quit smoking 2008 FH: No known family hc; Allergies: NKDA Medication: Reviewed Review of Systems - Review of Systems Review of Systems: Review of system is limited as patient is intubated and sedated at present Past Patient History - Infectious Disease Hx of Infectious Diseases: None - Past Medical History & Family History Past Medical History?: Yes - Past Social History Smoking Status: Former Smoker Chewing Tobacco Use: No Cigar Use: No Alcohol: None Drugs: Denies Home Situation {Lives}: With Family - CARDIAC Hx Hypertension: Yes - PULMONARY Hx Chronic Obstructive Pulmonary Disease (COPD): Yes (On home Oxygen) - NEUROLOGICAL Hx Neurological Disorder: No - HEENT Hx HEENT Problems: No - RENAL Hx Chronic Kidney Disease: No - ENDOCRINE/METABOLIC Hx Endocrine Disorders: No - HEMATOLOGICAL/ONCOLOGICAL Hx Blood Disorders: No - INTEGUMENTARY Hx Dermatological Problems: No - MUSCULOSKELETAL/RHEUMATOLOGICAL Hx Falls: No - GASTROINTESTINAL Hx Gastrointestinal Disorders: No Other/Comment: Diverticulitis/Cholelithiasis - GENITOURINARY/GYNECOLOGICAL Hx Genitourinary Disorders: No - PSYCHIATRIC Hx Anxiety: Yes Hx Substance Use: No - SURGICAL HISTORY Hx Surgeries: Yes Hx Hysterectomy: Yes Other/Comment: Ovarian tumor removal - ANESTHESIA Hx Anesthesia: Yes Hx Anesthesia Reactions: No Hx Malignant Hyperthermia: No Meds Allergies/Adverse Reactions: Allergies Allergy/AdvReac Type Severity Reaction Status Date / Time No Known Allergies Allergy Verified 08/30/17 19:23 - Medications Medications: Current Medications Albuterol/Ipratropium (Duoneb 3 Mg/0.5 Mg (3 Ml) Ud) 3 ml INH RQ4 [facility] Last Admin: 10/10/17 19:14 Dose: 3 ml Alprazolam (Xanax) 0.5 mg PO DAILY [facility] Last Admin: 10/10/17 11:16 Dose: 0.5 mg Alprazolam (Xanax) 0.25 mg PO HS PRN PRN Reason: Anxiety Stop: 10/15/17 17:25 Last Admin: 10/10/17 22:00 Dose: 0.25 mg Piperacillin Sod/Tazobactam (Sod 3.375 gm/ Sodium Chloride) 100 mls @ 200 mls/ hr IVPB Q6H [facility] Last Admin: 10/10/17 17:38 Dose: 200 mls/hr Propofol (Diprivan) 1,000 mg in 100 mls @ 2.381 mls/hr IV .Q24H PRN; Protocol; 5 MCG/KG/MIN PRN Reason: TITRATE PER MD ORDER Methylprednisolone (Solu-Medrol) 20 mg IV Q12 [facility] Last Admin: 10/10/17 22:01 Dose: 20 mg Methylprednisolone (Solu-Medrol) 125 mg IV ONCE ONE Stop: 10/11/17 00:38 Metronidazole (Flagyl) 250 mg PO Q6 [facility] Last Admin: 10/10/17 17:39 Dose: 250 mg Ondansetron HCl (Zofran Inj) 4 mg IVP Q6 PRN PRN Reason: Nausea/Vomiting Pantoprazole Sodium (Protonix Inj) 40 mg IVP DAILY [facility] Physical Exam - Constitutional Appears: In Acute Distress - Head Exam Head Exam: ATRAUMATIC, NORMAL INSPECTION, NORMOCEPHALIC - Eye Exam Eye Exam: Normal appearance Pupil Exam: NORMAL ACCOMODATION, PERRL - ENT Exam ENT Exam: Mucous Membranes Moist, Normal External Ear Exam - Neck Exam Neck exam: Negative for: Lymphadenopathy, Tenderness - Respiratory Exam Additional comments: Decreased breath sounds globally with expiratory wheezes at both anterior chest - Cardiovascular Exam Cardiovascular Exam: Tachycardia, REGULAR RHYTHM, +S2 - GI/Abdominal Exam Additional comments: Soft, decreased bowel sounds - Rectal Exam Rectal Exam: Deferred - Extremities Exam Extremities exam: Negative for: calf tenderness - Back Exam Back exam: NORMAL INSPECTION. absent: CVA tenderness (L), CVA tenderness (R) - Neurological Exam Additional comments: Sedated on the Mechanical ventilator, no facial droop[, Good motor tone, no focal neurological findings. - Psychiatric Exam Psychiatric exam: Flat Affect - Skin Skin Exam: Cyanosis, Dry, Normal Color, Pallor Results - Vital Signs Recent Vital Signs: Last Vital Signs Temp 99.7 F H 10/10/17 16:00 Pulse 110 H 10/10/17 16:00 Resp 20 10/10/17 16:00 BP 156/87 H 10/10/17 16:30 Pulse Ox 100 10/10/17 16:00 - Labs Result Diagrams: 10/10/17 11:09 10/07/17 07:12 Labs: Laboratory Results - last 24 hr 10/10/17 10/10/17 10/10/17 11:09 21:39 23:33 WBC 16.1 H RBC 4.12 Hgb 8.6 L Hct 27.9 L MCV 67.8 L MCH 20.9 L MCHC 30.9 L RDW 22.0 H Plt Count 183 MPV 10.8 Neut % (Auto) 93.1 H Lymph % (Auto) 2.9 L Taliaferro % (Auto) 3.4 Eos % (Auto) 0.5 Baso % (Auto) 0.1 Neut # 15.0 H Lymph # 0.5 L Taliaferro # 0.5 Eos # 0.1 Baso # 0.0 Neutrophils % (Manual) 91 H Band Neutrophils % 6 H Lymphocytes % (Manual) 2 L Monocytes % (Manual) 1 Platelet Estimate Normal Large Platelets Present Giant Platelets Present Hypochromasia (manual) Moderate Basophilic Stippling Slight Anisocytosis (manual) Moderate Microcytosis (manual) Moderate Ovalocytes Slight POC Glucose (mg/dL) 135 H Urine Color Lexii Urine Clarity Hazy Urine pH 6.0 Ur Specific Cl[place] 1.027 Urine Protein 1+ H Urine Glucose (UA) Normal Urine Ketones Negative Urine Blood 2+ H Urine Nitrate Negative Urine Bilirubin Negative Urine Urobilinogen Normal Ur Leukocyte Esterase 3+ H Urine WBC (Auto) 72 H Urine RBC (Auto) 33 H Ur Squamous Epith Cells 6 H Calcium Oxalate Crystal Few H Urine Bacteria Occ H Urine Yeast (Budding) Few H Assessment & Plan - Assessment and Plan (Free Text) Assessment: #. Hypoxic Respiratory Failure #. Hypotension #. COPD #. Anemia #. Dehydration #. Hx of SBO Plan: This is a 67 years old female with hx of HTN, Cholelithiasis and COPD on home oxygen. She was admitted on 10/04/17 and diagnosed with Small Bowel Obstruction, treated conservatively and she apparently recovered. Tonight a Rapid Response Team was called with the in labored respiration, hypoxic and Hypotensive, BP of 69/39mmHg. Anesthesia was called and she was intubated immediately and transferred to the ICU. #. Hypoxic Respiratory Failure probably due to COPD r/o Pulmonary embolism - Mechanical ventilator AC 14, TV 500 with FiO2 100% - Chest X-Ray Post intubation - ABG in one hour - CT angiogram Chest #. Hypotension. Blood pressure improve in ICU - IV Normal Saline #. COPD - Solumedrol 125mg IVP - Duoneb nebulizer Q4Hrs #. Anemia - Follow Hb #. Dehydration - IV Fluid #. Hx of SBO - Surgery on consult #. DVT Prophylaxis with SCD - Date & Time Date: 10/11/17 Time: 00:41
--- NOTE | 2017-10-11 01:50 | PCM.RRT ---
CORRECTION OFFICER SUPERVISOR Nurses Assessment - Situation Date: 10/11/17 Time CORRECTION OFFICER SUPERVISOR was called: 23:27 CORRECTION OFFICER SUPERVISOR Responder Arrival Time:: 23:29 CORRECTION OFFICER SUPERVISOR Location:: Med/Oncology Room Number: 356a CORRECTION OFFICER SUPERVISOR Reason for Call: Hypotension, Respiratory Distress CORRECTION OFFICER SUPERVISOR Called By: RN - IV IV Inserted during CORRECTION OFFICER SUPERVISOR?: No IV Fluids Initiated During CORRECTION OFFICER SUPERVISOR?: with left arm picc line New IV Insertion Tolerance: Fair - Respiratory CORRECTION OFFICER SUPERVISOR Delivery Method: Nasal Cannula @L/min Oxygen Flow Rate: 2 Received Nebulizer Treatments: Yes Was the Patient Ventilated with Bag/Mask 100% O2?: Yes Secretions Suctioned?: Yes Was the Patient Intubated?: Yes Was the Patient Placed on a Ventilator?: No - Medication Medications Administered During CORRECTION OFFICER SUPERVISOR: pt. transfer to icu CPR started during CORRECTION OFFICER SUPERVISOR?: No - Vital Signs Vital Signs: Rapid Response Vital Sign Blood Pressure 69/39 Pulse Rate 137 Respiratory Rate 22 Temperature 98.2 F - Sepsis Screen Part 1 Sepsis Screen Part 1: Hypotensive - Vital Signs at end of CORRECTION OFFICER SUPERVISOR Vital Signs at end of CORRECTION OFFICER SUPERVISOR: Rapid Response End Vital Sign Blood Pressure 177/77 Pulse Rate 140 Respiratory Rate 18 Temperature 98.5 F O2 Sat by Pulse Oximetry 96 - Recommendations Notifications: Attending Physician, Family or Designated Caregiver I.Reason for CORRECTION OFFICER SUPERVISOR - A) Acute Change in Patient: Subjective: Patient is a 67 year old female with past medical history of COPD on home O2, HTN, anxiety, who was admitted for epigastric abdominal pain associated with nausea and vomiting. CORRECTION OFFICER SUPERVISOR was called 23:27 hypotensive state, with BP of 69/37. Upon arrival to the patient's room, patient was receiving a breathing treatment and was noted to be in acute respiratory distress. Patient was using accessory muscles, while maintaining an O2 saturation of 97% and had a pulse rate of 141. Anesthesia was called stat in order to intubate the patient. Patient was intubated and transferred to the ICU. Patient's PMD was notified. - Neurological Status (Select all that apply): absent: Alert - Respiratory Oxygen Delivery Method: Nasal Cannula @L/min Oxygen Flow Rate: 2 - Constitutional Appears: In Acute Distress - Respiratory Exam Respiratory Exam: Accessory Muscle Use, Decreased Breath Sounds, Respiratory Distress - Cardiovascular Exam Cardiovascular Exam: REGULAR RHYTHM, +S1, +S2 - GI/Abdominal Exam GI & Abdominal Exam: Soft, Normal Bowel Sounds - Neurological Exam Neurological Exam: absent: Alert, Oriented x3 Plan - Assessment of Findings&Treatment Plan Patient is a 67 year old female with past medical history of COPD on home O2, HTN, anxiety, who was admitted for epigastric abdominal pain associated with nausea and vomiting. CORRECTION OFFICER SUPERVISOR was called 23:27 hypotensive state, with BP of 69/37. Upon arrival to the patient's room, patient was receiving a breathing treatment and was noted to be in acute respiratory distress. 1. Anesthesia stat; for intubation 2. Transfer to ICU for close monitoring 3. PMD was notified. Plans discussed with attending
--- NOTE | 2017-10-11 01:53 | CP.PCM.PRO ---
Pronouncement of Note - Clinical Findings Physical Exam: No Response Verbal/Painful Stimuli, Absent Peripheral Pulses{ Carotid & Femoral}, Absent Heart & Breath Sounds, No Pupillary Light Reflex, No Corneal Reflex, Pupils Fixed & Dilated, Absence of Vital Signs - Pronouncement Time Time of Pronouncement of : 01:14 - Notifications Pronouncement Notifications: Family Notified, Atending Notified Timber Repairer Notified: No - Autopsy Autopsy Requested: No - [place] [id number]
[2017-10-11 02:57] VITALS: TEMP 98.7
[2017-10-11 03:01] VITALS: BP 138/75; PULSE 117; RESP 20; O2SAT 95
--- NOTE | 2017-10-11 03:33 | CP.PCM.PN ---
Subjective - Date & Time of Evaluation Date of Evaluation: 10/11/17 Time of Evaluation: 03:08 - Subjective Subjective: CODE NOTE The patient began to awake from the Intubation sedation. Propofol was ordered. As the nurse related, before the Propofol could be started the patient satup then lay back . It was after this that the heart rate became bradycardic and continued rapidly to Asytole. Nighat Appiah was called. ACLS protocol for Asystole was started with chest compression, and Epinephrine. The defibrillator Pads were placed accordingly and the patient was receiving Bag valve ET tube positive pressure ventilation. Pulse did not return and the patient remained in Asystole through out the code. After the Code was stopped and the patient was noted to have subcutaneous emphysemia from the neck chest and abdomen with crepitus at the upper chest wall most likely secondary to rib fracture The patient was pronounced at 01:14. The PMD was called and the body released. The Patient's Daughter was called and she has come in to see the patient. Case # [id number] Kumar Angel MD Objective - Vital Signs/Intake and Output Vital Signs (last 24 hours): Temp Pulse Resp BP Pulse Ox 98.7 F 117 H 20 138/75 95 10/11/17 00:03 10/11/17 01:06 10/11/17 01:06 10/11/17 01:06 10/11/17 01:06 Intake and Output: 10/10/17 10/11/17 18:59 06:59 Intake Total 1300 605 Balance 1300 605 - Medications Medications: Current Medications Albuterol/Ipratropium (Duoneb 3 Mg/0.5 Mg (3 Ml) Ud) 3 ml INH RQ4 [facility] Last Admin: 10/10/17 19:14 Dose: 3 ml Alprazolam (Xanax) 0.5 mg PO DAILY [facility] Last Admin: 10/10/17 11:16 Dose: 0.5 mg Alprazolam (Xanax) 0.25 mg PO HS PRN PRN Reason: Anxiety Stop: 10/15/17 17:25 Last Admin: 10/10/17 22:00 Dose: 0.25 mg Piperacillin Sod/Tazobactam (Sod 3.375 gm/ Sodium Chloride) 100 mls @ 200 mls/ hr IVPB Q6H [facility] Last Admin: 10/10/17 17:38 Dose: 200 mls/hr Propofol (Diprivan) 1,000 mg in 100 mls @ 2.381 mls/hr IV .Q24H PRN; Protocol; 5 MCG/KG/MIN PRN Reason: TITRATE PER MD ORDER Last Titration: 10/11/17 00:46 Dose: 25 mcg/kg/min, 11.907 mls/hr Methylprednisolone (Solu-Medrol) 20 mg IV Q12 [facility] Last Admin: 10/10/17 22:01 Dose: 20 mg Metronidazole (Flagyl) 250 mg PO Q6 [facility] Last Admin: 10/10/17 17:39 Dose: 250 mg Ondansetron HCl (Zofran Inj) 4 mg IVP Q6 PRN PRN Reason: Nausea/Vomiting Pantoprazole Sodium (Protonix Inj) 40 mg IVP DAILY [facility] - Labs Labs: 10/10/17 11:09 10/07/17 07:12
[2017-10-11] MEDS ORDERED: Pantoprazole 40 mg EC Tab PO SCH (10:00)
--- NOTE | 2017-10-12 01:07 | PN ---
DATE: 10/10/2017 DAILY PROGRESS NOTE SUBJECTIVE: Patient was seen on 10/10/2017. She was not in cardiopulmonary distress. PHYSICAL EXAMINATION: VITAL SIGNS: She had temperature of 99.7, blood pressure 156/87, respiratory rate 20 and pulse 110. HEENT: Pupils equal, reactive to light. Normal-appearing mucosa of the conjunctivae, oropharynx, and nasal membrane mucosa. NECK: Supple. No JVD. No carotid bruit. No lymph node. No thyromegaly. CHEST AND LUNGS: Bilateral symmetrical expansion. Good air exchange. No rales. There are some scattered rhonchi bilaterally. CARDIOVASCULAR SYSTEM: PMI not localized. S1, S2. No additional sounds. ABDOMEN: Normoactive bowel sounds. No tenderness. No organomegaly. No masses. EXTREMITIES: No cyanosis, no clubbing, no edema. CENTRAL NERVOUS SYSTEM: Alert, awake, oriented x3. No neurological deficit could be appreciated. ASSESSMENT: 1. Status post small bowel obstruction, which resolved with conservative treatment. 2. Drop of hemoglobin and hematocrit with stool occult positive for further GI workup. 3. Chronic obstructive pulmonary disease, on home oxygen and currently on bronchodilators and tapering steroids. 4. Hypertension. 5. Bacteremia. Coagulase-negative Staphylococcus. PLAN: Continue current IV antibiotics as per Infectious Disease java developer consultant and plan to discharge patient to subacute rehabilitation for completion of IV antibiotic therapy as well as for deconditioning. Frankie Metzger MD
--- NOTE | 2017-10-12 17:39 | DS ---
REASON FOR ADMISSION: This is a 67-year-old female with history of severe COPD, on home oxygen therapy and was admitted for small bowel obstruction. COURSE OF HOSPITALIZATION: The patient was admitted to medical floor and she had a surgical consult done by Dr. Clements. The patient was treated conservatively and eventually, obstruction was resolved. During this hospitalization, the patient's hemoglobin and hematocrit dropped and she had stool positive for occult blood. The patient also was found to have bacteremia and she was started on IV antibiotics. ID consult was done by Dr. Zoe Allison. During this hospitalization, the patient was continued on bronchodilators and steroids, on which she was recently discharged on because of exacerbation of chronic obstructive pulmonary disease. The patient was found by the nurse to be in agonal breathing as well as hypertensive. INDEX CLERK was called and the patient was intubated and transferred to intensive care unit. Eventually, the patient was coded due to bradycardia and asystole. The patient never regained a pulse and she on electrical controls assembler hours of 10/11/2017. FINAL DIAGNOSES 1. Small bowel obstruction. 2. Sepsis. 3. Bacteremia. 4. Severe chronic obstructive pulmonary disease, on home oxygen therapy. 5. Hypertension. 6. Acute anemia. 7. Gastrointestinal bleeding. Frankie Metzger MD
== END 2017-10-11 05:04 | DRG 388 ==
LOC: C.ER 05:35 → C.9E 10:30 → C.3T 14:23 → C.9I 10-11 00:18
PROVIDERS: ADMIT Internal Medicine; ATTEND Internal Medicine
PROC: 02HV33Z Insertion of Infusion Device into Superior Vena Cava, Percutaneous Approach (ICD-10-PCS; principal; 2017-10-07)
PROC: B518ZZA Fluoroscopy of Superior Vena Cava, Guidance (ICD-10-PCS; 2017-10-07)
PROC: 30233N1 Transfusion of Nonautologous Red Blood Cells into Peripheral Vein, Percutaneous Approach (ICD-10-PCS; 2017-10-07)
PROC: 5A1935Z Respiratory Ventilation, Less than 24 Consecutive Hours (ICD-10-PCS; 2017-10-11)
PROC: 0BH17EZ Insertion of Endotracheal Airway into Trachea, Via Natural or Artificial Opening (ICD-10-PCS; 2017-10-11)
PROC: 5A12012 Performance of Cardiac Output, Single, Manual (ICD-10-PCS; 2017-10-11)
DX: K56.609 Unspecified intestinal obstruction, unspecified as to partial versus complete obstruction (principal); J96.91 Respiratory failure, unspecified with hypoxia; A41.9 Sepsis, unspecified organism; D62 Acute posthemorrhagic anemia; Z99.81 Dependence on supplemental oxygen; E86.0 Dehydration; K92.2 Gastrointestinal hemorrhage, unspecified; S22.39XA Fracture of one rib, unspecified side, initial encounter for closed fracture; Y65.8 Other specified misadventures during surgical and medical care; K57.30 Diverticulosis of large intestine without perforation or abscess without bleeding; K80.20 Calculus of gallbladder without cholecystitis without obstruction; I10 Essential (primary) hypertension; F41.9 Anxiety disorder, unspecified; B96.89 Other specified bacterial agents as the cause of diseases classified elsewhere; B95.7 Other staphylococcus as the cause of diseases classified elsewhere; Z53.20 Procedure and treatment not carried out because of patient's decision for unspecified reasons; R00.1 Bradycardia, unspecified; T88.8XXA Other specified complications of surgical and medical care, not elsewhere classified, initial encounter; Y92.230 Patient room in hospital as the place of occurrence of the external cause; Z87.891 Personal history of nicotine dependence; Z90.710 Acquired absence of both cervix and uterus